=== PATIENT | female | born 1960 | race African-American/Black ===

== ENCOUNTER 2018-11-10 09:08 | Emergency (ER) | payer OTHER ==
[2018-11-10 09:17] VITALS: BP 153/90; PULSE 83; TEMP 98.2; BMI 21.3
--- NOTE | 2018-11-10 09:52 | PDOC ---
History of Present Illness - General Chief Complaint: Edema Stated Complaint: LIP SWOLLEN Time Seen by Provider: 11/10/18 09:29 History Source: Patient Exam Limitations: No Limitations Past History - Travel Traveled outside of the country in the last 30 days: No Close contact w/someone who was outside of country & ill: No - Past Medical History Allergies/Adverse Reactions: Allergies Allergy/AdvReac Type Severity Reaction Status Date / Time ampicillin Allergy Verified 11/10/18 09:14 Penicillins Allergy Verified 11/10/18 09:14 shellfish derived Allergy Verified 11/10/18 09:14 Home Medications: Ambulatory Orders Cephalexin Monohydrate [Keflex -] 500 mg PO BID #14 capsule 11/10/18 Sulfamethoxazole/Trimethoprim [Bactrim Ds -] 1 tab PO BID #14 tablet 11/10/18 COPD: No CHF: Yes GI Disorders: Yes (KIDNEY INSUFICIENCY) HTN: Yes - Suicide/Smoking/Psychosocial Hx Smoking History: Current every day smoker Number of Cigarettes Smoked Daily: 6 Information on smoking cessation initiated: No Hx Alcohol Use: No Drug/Substance Use Hx: No Review of Systems - Review of Systems Able to Perform ROS?: Yes Comments:: 11/10/18 09:46 CONSTITUTIONAL: Absent: fever, chills, diaphoresis, generalized weakness, malaise, loss of appetite HEENT: Absent: rhinorrhea, nasal congestion, throat pain, throat swelling, difficulty swallowing, mouth swelling, ear pain, eye pain, visual Changes MUSCULOSKELETAL: Absent: myalgia, arthralgia, joint swelling SKIN: Present: swelling to the R upper lip Absent: rash, itching, pallor NEUROLOGIC: Absent: headache, focal weakness or paresthesias, dizziness, unsteady gait, seizure, mental status changes, bladder or bowel incontinence PSYCHIATRIC: Absent: anxiety, depression, suicidal or homicidal ideation, hallucinations. Is the patient limited Czech proficient: No *Physical Exam - Vital Signs Last Vital Signs Temp Pulse Resp BP Pulse Ox 98.2 F 83 16 153/90 99 11/10/18 09:15 11/10/18 09:15 11/10/18 09:15 11/10/18 09:15 11/10/18 09:15 - Physical Exam Comments: 11/10/18 09:51 GENERAL: The patient is awake, alert, and fully oriented, in no acute distress. HEAD: Normal with no signs of trauma. EYES: Pupils equal, round and reactive to light, extraocular movements intact, sclera anicteric, conjunctiva clear. EXTREMITIES: Normal range of motion, no edema. NEUROLOGICAL: Normal speech, normal gait. PSYCH: Normal mood, normal affect. SKIN: Indurated erythematous area to the R upper nasolabial fold extending to the R upper lip. Vesicles noted in the R nare. Warm, Dry, normal turgor, no rashes or lesions noted. Medical Decision Making - Medical Decision Making 11/10/18 09:52 The patient is a 58 y/o F who presents to the ER for swelling to her R upper lip. The patient reports that she had a fever blister in that area starting this week and now the area is swollen and tender to touch. Denies fevers, chills , headache, dizziness, visual changes, n/v/d. A/P: cellulitis On exam pt with an area of induration and erythema from the R nasolabial fold to RUL Consistent with cellulitis Will treat with bactrim and keflex at this time Pt to f/u with PCP. ENT referral also given DC home I discussed the physical exam findings, ancillary test results and final diagnoses with the patient. I answered all of the patient's questions. The patient was satisfied with the care received and felt comfortable with the discharge plan and treatment plan. The Patient agrees to follow up with the primary care physician/specialist within 24-72 hours. Return precautions were given. *DC/Admit/Observation/Transfer Diagnosis at time of Disposition: Cellulitis Qualifiers: Site of cellulitis: face Qualified Code(s): L03.211 - Cellulitis of face - Discharge Dispostion Disposition: HOME Condition at time of disposition: Stable Decision to Admit order: No - Referrals Referrals: Lee Claire MD [Staff Physician] - Julio Mathias MD [Staff Physician] - - Patient Instructions Printed Discharge Instructions: DI for Cellulitis -- Adult Additional Instructions: You have cellulitis. This is a skin infection. Please take the Bactrim and Keflex twice a day for one week. Please take all the antibiotics even if you feel better. You may use warm water soaks to the area. Please do this approximately 4-5 times a day. Please avoid shaving the skin around the area of redness. You may take Tylenol or Motrin as needed for pain. Please follow up with your primary care doctor in 1 week. Return to the emergency department if you have worsening redness, fevers, increasing pain, or have any changes in your symptoms. - Post Discharge Activity
== END 2018-11-10 09:58 | disposition home or self-care (01) ==
LOC: JERFT 09:08
DX: L03.211 Cellulitis of face (principal); I11.0 Hypertensive heart disease with heart failure; I50.9 Heart failure, unspecified
CPT/HCPCS: 99282-25

== ENCOUNTER → 2018-11-21 | Emergency (ER) | payer OTHER ==
[~2018-11-21] MED LIST: SODIUM ZIRCONIUM CYCLOSILICATE (LOKELMA) 5 GM PACKET PO STA
--- NOTE | 2018-11-21 13:24 | PDOC ---
Rapid Medical Evaluation Chief Complaint: Revisit, Lab Variance Time Seen by Provider: 11/21/18 13:23 Medical Evaluation: Allergies Allergy/AdvReac Type Severity Reaction Status Date / Time ampicillin Allergy Verified 11/10/18 09:14 Penicillins Allergy Verified 11/10/18 09:14 shellfish derived Allergy Verified 11/10/18 09:14 11/21/18 13:23 CC: sent by renal for hyperK+ PE: No focal findings Orders: EKG, urine, labs Patient will proceed to ER for further evaluation. Discharge Disposition - Diagnosis Hyperkalemia - Referrals Referrals: Eun Whiting MD [Primary Care Provider] - - Patient Instructions - Post Discharge Activity
[2018-11-21 13:25] VITALS: BMI 22.3
--- NOTE | 2018-11-21 14:32 | EKG ---
Test Reason : Blood Pressure : / mmHG Vent. Rate : 068 BPM Atrial Rate : 068 BPM P-R Int : 162 ms QRS Dur : 098 ms QT Int : 440 ms P-R-T Axes : 063 -62 099 degrees QTc Int : 467 ms NORMAL SINUS RHYTHM LEFT AXIS DEVIATION T WAVE ABNORMALITY, CONSIDER LATERAL ISCHEMIA PROLONGED QT ABNORMAL ECG NO PREVIOUS ECGS AVAILABLE Confirmed by TG MADSEN MD ([id number]) on 11/21/2018 2:32:02 PM Referred By: Confirmed By:TG MADSEN MD
--- NOTE | 2018-11-21 14:37 | PDOC ---
History of Present Illness - General Chief Complaint: Revisit, Lab Variance Stated Complaint: SENT BY PCP HIGH POTASSIUM Time Seen by Provider: 11/21/18 13:23 History Source: Patient, Old Records, Other (Dr. Ramsey came to the department to discuss the pt with ED Attending.) Exam Limitations: No Limitations - History of Present Illness Initial Comments: HPI: 58 y/o female presenting to [facility] ER from the clinic of Dr. Ramsey for evaluation of hyperkalemia. Pt has a h/o of CKD and was started on Bactrim and Keflex last week after noting swelling to her face. Potassium was found to be 5.9 today. Pt denies symptoms. Medical Hx: - HTN - CHF - CKD Review of Systems: In addition to that documented in the HPI above, the additional ROS was obtained : Constitutional- Denies fevers or chills Head- Denies vision changes ENMT- Denies sore throat CV- Denies chest pain Resp- Denies SOB GI- Denies vomiting or diarrhea - Denies painful urination MSK- Denies recent trauma Skin- Denies new rashes Neuro- Denies new numbness or tingling or weakness Endocrine- Denies polyuria Heme- Denies bleeding or bruising Physical Examination: Constitutional- Well-developed, well-nourished adult female in no acute distress or obvious discomfort. Found semi-fowlers on hospital bed. Answered all questions appropriately and completely. Speech was non-labored, non- pressured. Head- Normocephalic. No obvious external signs of trauma. Cardiovascular / Chest- Regular rate and regular rhythm. No murmur, rubs, clicks , or gallops. Peripheral pulses- radial pulses full. Respiratory- Breathing unlabored. Equal chest rise and fall. Clear to auscultation bilaterally. No stridor, no wheezing, no rhonchi. Neuro- Alert and oriented x4. Moving all four extremities spontaneously. Skin- Warm, dry, and intact. Psych- Affect- appropriate. Mood- normal. MDM: *Reviewed vital signs, nursing notes, and prior visit documentation (if available). 58 y/o female presenting with asymptomatic hyperkalemia from clinic. Afebrile. Vitals unremarkable for hypotension or tachycardia. Physical exam as described above. Repeat potassium within normal limits. Cr and H/H at baseline per Dr. Ramsey, who was consulted via telephone. Requested she be administered single dose of Lokelma before discharge. Will f/u in clinic in two days. Discussed lab results with pt . Answered all questions. Provided return precautions. Pt expressed verbal understanding and agreement with plan to discharge home with outpatient follow up. Provided copies of todays results. Encouraged pt to discontinue taking the previously prescribed antibiotics. Brandon Sims M.D., PGY2 Emergency Medicine Resident Past History - Past Medical History Allergies/Adverse Reactions: Allergies Allergy/AdvReac Type Severity Reaction Status Date / Time ampicillin Allergy Verified 11/21/18 13:25 Penicillins Allergy Verified 11/21/18 13:25 shellfish derived Allergy Verified 11/21/18 13:25 Home Medications: Ambulatory Orders Cephalexin Monohydrate [Keflex -] 500 mg PO BID #14 capsule 11/10/18 Sulfamethoxazole/Trimethoprim [Bactrim Ds -] 1 tab PO BID #14 tablet 11/10/18 COPD: No CHF: Yes GI Disorders: Yes (KIDNEY INSUFICIENCY) HTN: Yes - Psycho Social/Smoking Cessation Hx Smoking History: Never smoked Number of Cigarettes Smoked Daily: 6 Information on smoking cessation initiated: No Hx Alcohol Use: No Drug/Substance Use Hx: No *Physical Exam - Vital Signs Last Vital Signs Temp Pulse Resp BP Pulse Ox 99.0 F 65 19 146/80 100 11/21/18 14:14 11/21/18 14:14 11/21/18 14:14 11/21/18 14:14 11/21/18 14:16 ED Treatment Course - LABORATORY CBC & Chemistry Diagram: 11/21/18 14:15 11/21/18 14:15 Discharge - Discharge Information Problems reviewed: Yes Clinical Impression/Diagnosis: Hyperkalemia, Elevated serum creatinine CKD (chronic kidney disease) Qualifiers: Chronic kidney disease stage: unspecified stage Qualified Code(s): N18.9 - Chronic kidney disease, unspecified Condition: Good Disposition: HOME - Admission No - Follow up/Referral Referrals: Eun Whiting MD [Primary Care Provider] - Yeison Ramsey MD [Staff Physician] - - Patient Discharge Instructions Patient Printed Discharge Instructions: Limiting Potassium in Your Diet Additional Instructions: You were seen today for a high potassium level. Your potassium was re-measured and found to have improved. It is now within a safe level. I called and discussed your case with Dr. Ramsey. He would like you to take a dose of Lokelma. He would also like you to follow up with him in his office in the next 2-3 days. You will need to call to make an appointment. The number is included in this packet. A copy of todays results are attached to this packet. Take it to the appointment so your doctor can review them. Do not take any more of the antibiotics prescribed last week. Go to the nearest emergency department if your condition worsens or you feel like you need additional emergency evaluation. Print Language: GREEK - Post Discharge Activity Work/Back to School Note: Back to Work
[2018-11-21 14:48] LABS: BASO % 0.9 % (0-2.0); EOS % 9.6 % (0-4.5); HEMATOCRIT 26.9 % (32.4-45.2); HEMOGLOBIN 8.6 GM/dL (10.7-15.3); LYMPH % 32.6 % (8-40); MCH 22.3 pg (25.7-33.7); MCHC 31.9 g/dl (32.0-36.0); MEAN CELL VOLUME 69.9 fl (80-96); MEAN PLT VOLUME 8.5 fl (7.5-11.1); MONO % 6.3 % (3.8-10.2); NEUT % 50.6 % (42.8-82.8); PLATELET COUNT 289 K/MM3 (134-434); RBC 3.85 M/mm3 (3.60-5.2); RDW 16.2 % (11.6-15.6); WHITE BLOOD COUNT 8.3 K/mm3 (4.0-10.0)
[2018-11-21 14:54] VITALS: BP 146/80; PULSE 65; TEMP 99
[2018-11-21 15:23] LABS: EPI CELLS 22.3 /HPF (0-5/HPF); HYALINE CASTS 3 /lpf (0-8); URINE APPEARANCE CLOUDY; URINE BACTERIA 618.3 /hpf (NEGATIVE); URINE BILIRUBIN NEGATIVE (NEGATIVE); URINE COLOR YELLOW; URINE GLUCOSE (UA) NEGATIVE (NEGATIVE); URINE KETONE TRACE (NEGATIVE); URINE LEUK ESTERASE NEGATIVE (NEGATIVE); URINE NITRITE NEGATIVE (NEGATIVE); URINE PROTEIN 3+ (NEGATIVE); URINE RBC 1 /hpf (0-4); URINE UROBILINOGEN 0.2 mg/dL (0.2-1.0); URINE WBC 4 /hpf (0-5)
[2018-11-21 15:30] LABS: ALBUMIN 3.4 g/dl (3.4-5.0); BILIRUBIN,TOTAL 0.2 mg/dL (0.2-1); BLOOD UREA NITROGEN 72.4 mg/dL (7-18); CALCIUM 8.8 mg/dL (8.5-10.1); CREATININE 3.7 mg/dL (0.55-1.3); POTASSIUM 5.1 mmol/L (3.5-5.1); TOT PROT 7.8 g/dl (6.4-8.2)
--- NOTE | 2018-11-21 15:37 | PDOC ---
Attending Attestation - Resident Resident Name: Brandon Sims - ED Attending Attestation I have performed the following: I have examined & evaluated the patient, The case was reviewed & discussed with the resident, I agree w/resident's findings & plan, Exceptions are as noted - HPI HPI: 11/21/18 15:32 Patient is a 58-year-old female with history of CKD who presents to the ER for elevated potassium of 5.9 and elevated creatinine compared to baseline after initiation of therapy with p.o. Bactrim for suspected phlebitis. Patient has no acute complaints. - Physicial Exam PE: 11/21/18 15:36 Patient is awake and alert, well-appearing, no distress Normocephalic and atraumatic PERRLA, EOMI CTA RRR - Medical Decision Making 11/21/18 15:37 Patient 58-year-old female with history of CKD who presents from nephrology office for elevated creatinine and hyperkalemia. EKG reveals no evidence of hyperacute T waves nor any other evidence of hyperkalemia. Will obtain CBC/CMP/ UA. Will treat hyperkalemia with Lakelma as needed. Will consult nephrology as needed.
--- NOTE | 2018-11-21 19:02 | CONSULT ---
Consult Consult Specialty:: Nephrology Reason for Consultation:: I sent her in for hyperkalemia - History of Present Illness Chief Complaint: sentin in for hyperkalemia History of Present Illness: Pt is a 58 year old female with pmhx of ckd, hep c, htn who I sent in for hyperkalemia. She was given bactrim for an infection last week and came to me to review her meds. Her potassium was elevated and it did not improve. She overall feels well. She denies shortness of breath or palpitations. - History Source History Provided By: Patient, Medical Record - Past Medical History Cardio/Vascular: Yes: HTN Renal/: Yes: Renal Inusuff - Alcohol/Substance Use Hx Alcohol Use: No - Smoking History Smoking history: Never smoked Aproximately how many cigarettes per day: 6 Home Medications - Allergies Allergies/Adverse Reactions: Allergies Allergy/AdvReac Type Severity Reaction Status Date / Time ampicillin Allergy Verified 11/21/18 13:25 Penicillins Allergy Verified 11/21/18 13:25 shellfish derived Allergy Verified 11/21/18 13:25 - Home Medications Home Medications: Ambulatory Orders Cephalexin Monohydrate [Keflex -] 500 mg PO BID #14 capsule 11/10/18 Sulfamethoxazole/Trimethoprim [Bactrim Ds -] 1 tab PO BID #14 tablet 11/10/18 Family Medical History Family History: Denies Review of Systems - Review of Systems Constitutional: reports: No Symptoms Eyes: reports: No Symptoms HENT: reports: No Symptoms Neck: reports: No Symptoms Cardiovascular: reports: No Symptoms Respiratory: reports: No Symptoms Gastrointestinal: reports: No Symptoms Genitourinary: reports: No Symptoms Musculoskeletal: reports: No Symptoms Integumentary: reports: No Symptoms Neurological: reports: No Symptoms Endocrine: reports: No Symptoms Hematology/Lymphatic: reports: No Symptoms Psychiatric: reports: No Symptoms Physical Exam Vital Signs: Vital Signs Temperature 99.0 F 11/21/18 14:14 Pulse Rate 65 11/21/18 14:14 Respiratory Rate 19 11/21/18 14:14 Blood Pressure 146/80 11/21/18 14:14 O2 Sat by Pulse Oximetry (%) 100 11/21/18 14:16 Constitutional: Yes: Calm Eyes: Yes: Conjunctiva Clear HENT: Yes: Atraumatic Neck: Yes: Supple Cardiovascular: Yes: S1, S2 Gastrointestinal: Yes: Soft Breast(s): Yes: WNL Extremities: Yes: WNL Edema: No Neurological: Yes: Oriented Psychiatric: Yes: Oriented Labs: CBC, BMP 11/21/18 14:15 11/21/18 14:15 Laboratory Tests 11/21/18 11/21/18 11/21/18 14:15 14:15 14:15 Hgb 8.6 L Hct 26.9 L Sodium 141 Potassium 5.1 Chloride 117 H Carbon Dioxide 15 L BUN 72.4 H Creatinine 3.7 H Urine Protein 3+ H Urine Ketones Trace H Problem List - Problems (1) CKD (chronic kidney disease) Code(s): N18.9 - CHRONIC KIDNEY DISEASE, UNSPECIFIED Qualifiers: Chronic kidney disease stage: unspecified stage Qualified Code(s): N18.9 - Chronic kidney disease, unspecified (2) Elevated serum creatinine Code(s): R79.89 - OTHER SPECIFIED ABNORMAL FINDINGS OF BLOOD CHEMISTRY (3) Hyperkalemia Code(s): E87.5 - HYPERKALEMIA Assessment/Plan Impression 1. CKD 2. hyperkalemia 3. cellilitis treated as outpt 4. hep c treated 5. htn 6. anemia 7. met acidosis Plan - potassium is improving - will give a dose of lokelma - discussed with er - bactrim is stopped - will see on office
== END | disposition home or self-care (01) ==
LOC: JER 13:19
DX: N18.9 Chronic kidney disease, unspecified (principal); E87.5 Hyperkalemia; R94.4 Abnormal results of kidney function studies; I50.9 Heart failure, unspecified; I10 Essential (primary) hypertension; Z88.0 Allergy status to penicillin; Z88.8 Allergy status to other drugs, medicaments and biological substances; Z91.013 Allergy to seafood
CPT/HCPCS: 36415; 80053; 81003; 82436; 82550; 82565; 84133; 84300; 84484; 85025; 87077; 87086; 93005; 93010; 99283-25

== ENCOUNTER 2019-03-25 13:42 | Emergency (ER) | payer OTHER ==
[2019-03-25 13:48] VITALS: BMI 23.8
--- NOTE | 2019-03-25 13:49 | PDOC ---
Rapid Medical Evaluation Time Seen by Provider: 03/25/19 13:47 Medical Evaluation: Allergies Allergy/AdvReac Type Severity Reaction Status Date / Time ampicillin Allergy Verified 03/25/19 13:45 Penicillins Allergy Verified 03/25/19 13:45 shellfish derived Allergy Verified 03/25/19 13:45 03/25/19 13:47 This patient had brief-in person evaluation in triage cc:sent by pmd for acid levels HPI:as per patient she was sent by pmd due to abnormal " acid levels' Reports weakness. Denies chest pain PE: unlabored breathing [id number] orders:labs ordered This patient will proceed to main ed for further evaluation 03/25/19 20:38 Discharge Disposition - Diagnosis Renal insufficiency - Discharge Dispostion Disposition: HOME Condition at time of disposition: Good - Referrals Referrals: Eun Whiting MD [Primary Care Provider] - - Patient Instructions Printed Discharge Instructions: DI for Kidney Failure Additional Instructions: At this time we are recommending that you continue to take your sodium bicarb as prescribed. you are given a dose here in the ER for the afternoon dose but need to take it tonight. Follow-up with Dr. Ramsey next Monday as discussed - Post Discharge Activity
[2019-03-25 14:41] LABS: BASO % 0.3 % (0-2.0); EOS % 5.4 % (0-4.5); HEMATOCRIT 29.2 % (32.4-45.2); HEMOGLOBIN 9.1 GM/dL (10.7-15.3); LYMPH % 23.5 % (8-40); MCH 21.9 pg (25.7-33.7); MCHC 31.1 g/dl (32.0-36.0); MEAN CELL VOLUME 70.5 fl (80-96); MEAN PLT VOLUME 8.3 fl (7.5-11.1); MONO % 7.8 % (3.8-10.2); PLATELET COUNT 245 K/MM3 (134-434); RBC 4.14 M/mm3 (3.60-5.2); RDW 15.8 % (11.6-15.6); WHITE BLOOD COUNT 7.8 K/mm3 (4.0-10.0)
[2019-03-25 15:07] LABS: ALBUMIN 3.4 g/dl (3.4-5.0); BILIRUBIN,TOTAL 0.2 mg/dL (0.2-1); BLOOD UREA NITROGEN 68.4 mg/dL (7-18); CALCIUM 8.9 mg/dL (8.5-10.1); CREATININE 4.2 mg/dL (0.55-1.3); POTASSIUM 4.7 mmol/L (3.5-5.1); TOT PROT 7.9 g/dl (6.4-8.2)
[2019-03-25] MEDS ORDERED: SODIUM BICARBONATE 650 MG TABLET PO ONE (15:24)
--- NOTE | 2019-03-25 15:43 | PDOC ---
History of Present Illness - General Chief Complaint: Abnormal Lab Results (Outside) Stated Complaint: ABNORMAL LABS Time Seen by Provider: 03/25/19 13:47 History Source: Patient Exam Limitations: No Limitations - History of Present Illness Initial Comments: 03/25/19 15:39 59-year-old female presents to ED for evaluation of elevated bicarb. As per patient patient was sent in by her neurology manager and she has not been taking her sodium bicarb as prescribed and needs lab work. Patient has no complaints presently. Is this a multiple visit Asthma Patient?: No Timing/Duration: unsure Associated Symptoms: reports: denies symptoms Past History - Travel Traveled outside of the country in the last 30 days: No Close contact w/someone who was outside of country & ill: No - Past Medical History Allergies/Adverse Reactions: Allergies Allergy/AdvReac Type Severity Reaction Status Date / Time ampicillin Allergy Verified 03/25/19 13:45 Penicillins Allergy Verified 03/25/19 13:45 shellfish derived Allergy Verified 03/25/19 13:45 Home Medications: Ambulatory Orders Cephalexin Monohydrate [Keflex -] 500 mg PO BID #14 capsule 11/10/18 Sulfamethoxazole/Trimethoprim [Bactrim Ds -] 1 tab PO BID #14 tablet 11/10/18 COPD: Yes CHF: Yes GI Disorders: Yes (KIDNEY INSUFICIENCY) HTN: Yes Hypercholesterolemia: Yes - Immunization History Immunization Up to Date: Yes - Psycho Social/Smoking Cessation Hx Smoking History: Current every day smoker Have you smoked in the past 12 months: Yes Number of Cigarettes Smoked Daily: 4 Information on smoking cessation initiated: No Hx Alcohol Use: No Drug/Substance Use Hx: No Patient Lives Alone: No Lives with/in: spouse/SO Review of Systems - Review of Systems Able to Perform ROS?: Yes Constitutional: No: Symptoms Reported HEENTM: No: Symptoms Reported Respiratory: No: Symptoms reported Cardiac (ROS): No: Symptoms Reported ABD/GI: No: Symptoms Reported : No: Symptoms Reported Musculoskeletal: No: Symptoms Reported Integumentary: No: Symptoms Reported Neurological: No: Symptoms reported *Physical Exam - Vital Signs Last Vital Signs Temp Pulse Resp BP Pulse Ox 98.0 F 76 18 147/72 98 03/25/19 13:45 03/25/19 13:45 03/25/19 13:45 03/25/19 13:45 03/25/19 13:45 - Physical Exam General Appearance: Yes: Nourished, Appropriately Dressed. No: Apparent Distress HEENT: positive: TMs Normal, Pharynx Normal. negative: Pale Conjunctivae Neck: positive: Supple Respiratory/Chest: positive: Lungs Clear, Normal Breath Sounds. negative: Respiratory Distress, Accessory Muscle Use Cardiovascular: positive: Regular Rhythm, Regular Rate. negative: Murmur Gastrointestinal/Abdominal: positive: Soft. negative: Tenderness Integumentary: positive: Normal Color, Dry, Warm Neurologic: positive: Normal Mood/Affect, Motor Strength 5/5 (Ambulatory) ED Treatment Course - LABORATORY CBC & Chemistry Diagram: 03/25/19 13:59 03/25/19 13:59 - ADDITIONAL ORDERS Additional order review: Laboratory Results 03/25/19 13:59 Sodium 141 Potassium 4.7 Chloride 117 H Carbon Dioxide 15 L Anion Gap 9 BUN 68.4 H Creatinine 4.2 H Est GFR (CKD-EPI)AfAm 12.42 Est GFR (CKD-EPI)NonAf 10.72 Random Glucose 111 H Calcium 8.9 Total Bilirubin 0.2 AST 23 ALT 27 Alkaline Phosphatase 174 H Total Protein 7.9 Albumin 3.4 03/25/19 13:59 RBC 4.14 MCV 70.5 L MCHC 31.1 L RDW 15.8 H MPV 8.3 Neutrophils % 63.0 D Lymphocytes % 23.5 D Monocytes % 7.8 Eosinophils % 5.4 H Basophils % 0.3 Medical Decision Making - Medical Decision Making 03/25/19 15:40 Chief complaint: Patient sent in by neurology manager Dr. ortiz for evaluation of sodium bicarb. Patient is asymptomatic. Patient does not receive dialysis but is closely being monitored for it. exam: Patient with normal vital signs with no acute or significant findings on exam. Plan: Labs reviewed and are within normal limits. Patient will be given 650 mg of sodium bicarb here in the ER as per her neurology manager and discharged home with the same which she has written a prescription already for and patient is aware she needs to take her medication and follow-up with him next Monday. Discharge - Discharge Information Problems reviewed: Yes Clinical Impression/Diagnosis: Renal insufficiency Condition: Good Disposition: HOME - Follow up/Referral Referrals: Eun Whiting MD [Primary Care Provider] - - Patient Discharge Instructions Patient Printed Discharge Instructions: DI for Kidney Failure Additional Instructions: At this time we are recommending that you continue to take your sodium bicarb as prescribed. you are given a dose here in the ER for the afternoon dose but need to take it tonight. Follow-up with Dr. Ramsey next Monday as discussed - Post Discharge Activity
[2019-03-25 15:59] LABS: ANISOCYTOSIS 1+; MACROCYTOSIS 0; PLATELET ESTIMATE NORMAL; TARGET CELLS 1+; TEAR DROP CELLS 1+
[2019-03-25 16:28] VITALS: BP 141/69; PULSE 82; TEMP 97.9
--- NOTE | 2019-03-25 19:38 | CONSULT ---
Consult Consult Specialty:: Nephrology Reason for Consultation:: CKD - History of Present Illness Chief Complaint: i sent pt in for acidosis History of Present Illness: Pt is a 59 year old female with pmhx of ckd and htn. I saw her in [facility] office and she was found to be acidotic with a bicarb of 12. I asked her to come in to have her labs rechecked. She says that she stopped taking her bicarb pills. - History Source History Provided By: Patient - Past Medical History Cardio/Vascular: Yes: HTN Hepatobiliary: Yes: Hepatitis C Renal/: Yes: Renal Inusuff - Alcohol/Substance Use Hx Alcohol Use: No - Smoking History Smoking history: Current every day smoker Have you smoked in the past 12 months: Yes Aproximately how many cigarettes per day: 4 Home Medications - Allergies Allergies/Adverse Reactions: Allergies Allergy/AdvReac Type Severity Reaction Status Date / Time ampicillin Allergy Verified 03/25/19 13:45 Penicillins Allergy Verified 03/25/19 13:45 shellfish derived Allergy Verified 03/25/19 13:45 - Home Medications Home Medications: Ambulatory Orders Cephalexin Monohydrate [Keflex -] 500 mg PO BID #14 capsule 11/10/18 Sulfamethoxazole/Trimethoprim [Bactrim Ds -] 1 tab PO BID #14 tablet 11/10/18 Family Medical History Family History: Denies Review of Systems - Review of Systems Constitutional: reports: Malaise Eyes: reports: No Symptoms HENT: reports: No Symptoms Neck: reports: No Symptoms Cardiovascular: reports: No Symptoms Respiratory: reports: No Symptoms Genitourinary: reports: No Symptoms Musculoskeletal: reports: No Symptoms Integumentary: reports: No Symptoms Neurological: reports: No Symptoms Endocrine: reports: No Symptoms Hematology/Lymphatic: reports: No Symptoms Psychiatric: reports: No Symptoms Physical Exam Vital Signs: Vital Signs Temperature 97.9 F 03/25/19 16:27 Pulse Rate 82 03/25/19 16:27 Respiratory Rate 18 03/25/19 16:27 Blood Pressure 141/69 03/25/19 16:27 O2 Sat by Pulse Oximetry (%) 98 03/25/19 16:27 Constitutional: Yes: Calm Eyes: Yes: Conjunctiva Clear HENT: Yes: Atraumatic Neck: Yes: Supple Cardiovascular: Yes: S1, S2 Respiratory: Yes: CTA Bilaterally Gastrointestinal: Yes: Normal Bowel Sounds, Soft Renal/: Yes: WNL Musculoskeletal: Yes: WNL Neurological: Yes: Oriented Psychiatric: Yes: Oriented Labs: CBC, BMP 03/25/19 13:59 03/25/19 13:59 Problem List - Problems (1) Acidosis Code(s): E87.2 - ACIDOSIS (2) CKD (chronic kidney disease) Code(s): N18.9 - CHRONIC KIDNEY DISEASE, UNSPECIFIED Qualifiers: Chronic kidney disease stage: unspecified stage Qualified Code(s): N18.9 - Chronic kidney disease, unspecified (3) Renal insufficiency Code(s): N28.9 - DISORDER OF KIDNEY AND URETER, UNSPECIFIED Assessment/Plan Impression 1. CKD 2. metabolci acidosis 3. anemia 4. hep c treated 5. htn Plan - bicarb improved - will give po bicarb - script sent to pharmacy - renal function worsening, explained to pt that we should prepare for HD - should come for follow up next week - discussed with ER - renal diet
== END 2019-03-25 17:00 | disposition home or self-care (01) ==
LOC: JER 13:42
DX: E87.2 Acidosis (principal); I12.9 Hypertensive chronic kidney disease with stage 1 through stage 4 chronic kidney disease, or unspecified chronic kidney disease; N18.9 Chronic kidney disease, unspecified; D64.9 Anemia, unspecified; B18.2 Chronic viral hepatitis C; Z88.0 Allergy status to penicillin; Z91.013 Allergy to seafood
CPT/HCPCS: 36415; 80053; 85025; 99282-25

== ENCOUNTER 2019-04-10 08:09 | Emergency (ER) | payer OTHER ==
[2019-04-10 08:17] VITALS: BP 150/78; PULSE 71; TEMP 97.7; BMI 22.6
--- NOTE | 2019-04-10 08:43 | PDOC ---
History of Present Illness - General Chief Complaint: Injury Stated Complaint: RIGHT ANKLE PAIN Time Seen by Provider: 04/10/19 08:26 History Source: Patient - History of Present Illness Occurred: reports: other Lower Extremity Pain Location: right: ankle Past History - Past Medical History Allergies/Adverse Reactions: Allergies Allergy/AdvReac Type Severity Reaction Status Date / Time ampicillin Allergy Verified 03/25/19 13:45 Penicillins Allergy Verified 03/25/19 13:45 shellfish derived Allergy Verified 03/25/19 13:45 Home Medications: Ambulatory Orders Cephalexin Monohydrate [Keflex -] 500 mg PO BID #14 capsule 11/10/18 Sulfamethoxazole/Trimethoprim [Bactrim Ds -] 1 tab PO BID #14 tablet 11/10/18 Tramadol HCl 50 mg PO Q6H #15 tablet MDD 200 mg 04/10/19 COPD: Yes CHF: Yes GI Disorders: Yes (KIDNEY INSUFICIENCY) HTN: Yes Hypercholesterolemia: Yes - Immunization History Immunization Up to Date: Yes - Psycho Social/Smoking Cessation Hx Smoking History: Current every day smoker Have you smoked in the past 12 months: Yes Number of Cigarettes Smoked Daily: 4 Information on smoking cessation initiated: No Hx Alcohol Use: No Drug/Substance Use Hx: No Review of Systems - Review of Systems Constitutional: No: Chills, Fever *Physical Exam - Vital Signs Last Vital Signs Temp Pulse Resp BP Pulse Ox 97.7 F 71 16 150/78 99 04/10/19 08:12 04/10/19 08:12 04/10/19 08:12 04/10/19 08:12 04/10/19 08:12 - Physical Exam General Appearance: Yes: Appropriately Dressed, Mild Distress HEENT: positive: Normal Voice Neck: positive: Supple Respiratory/Chest: negative: Respiratory Distress Extremity: positive: Other (~2x2cm localized area of erythema/warmth and sig ttp ~2cm proximal to insertion site of achilles tendon, pt able to plantarflex w / calf squeeze and bear weight) Integumentary: positive: Dry, Warm Neurologic: positive: Fully Oriented, Alert, Normal Mood/Affect Procedures - Splinting Splint Location: Right: Ankle Pre-Proc Neuro Vasc Exam: normal Splint Type: Yes: Long Leg (posterior splint to RLE) Post-Proc Neuro Vasc Exam: normal Edu Bandage: 4" (2) ED Treatment Course - RADIOLOGY Radiology Studies Ordered: Category Date Time Status ANKLE & FOOT-RIGHT* [RAD] Stat Radiology 04/10/19 08:26 Ordered Medical Decision Making - Medical Decision Making 04/10/19 08:36 59-year-old female, h/o HTN, CHF, CKD, gout (to L foot), with severe pain to posterior aspect of right ankle x4 days, getting worse. Denies trauma or obvious inciting factors. No recent antibiotic use. Seen at her PMDs office yesterday and diagnosed with possible tendinopathy and told to take Tylenol and follow-up with Ortho. States Tylenol is not relieving pain. Started using her walker today due to pain see exam ?Achilles tendinopathy vs partial tear as d/w Dr Perez who also evaluated pt No trauma or recent fluoroquinolone use Plantar flexes w/ calf squeeze and able to bear weight w/ walker -Posterior splint placed and NWB w/ crutches (has own crutches at home) -dose of tramadol given here -to f/u with Dr Jarrell of ortho who I spoke to and agrees w/ above plan Discharge - Discharge Information Problems reviewed: Yes Clinical Impression/Diagnosis: Ankle pain Qualifiers: Chronicity: acute Laterality: right Qualified Code(s): M25.571 - Pain in right ankle and joints of right foot Condition: Good Disposition: HOME - Additional Discharge Information Prescriptions: Tramadol HCl 50 mg PO Q6H #15 tablet MDD 200 mg - Follow up/Referral Referrals: Melissa Martins MD [Primary Care Provider] - - Patient Discharge Instructions Patient Printed Discharge Instructions: DI for Achilles Tendinopathy Additional Instructions: You can remove splint at home and ice area intermittently Use crutches for non-weightbearing Take tramadol as directed Follow-up with Dr. Mcdonald of orthopedics this week at [phone] - Post Discharge Activity
[2019-04-10] MEDS ORDERED: traMADol HCL 50 MG TABLET PO ONE (08:46)
[2019-04-10] MEDS ORDERED: traMADol HCL 50 MG TABLET ONE (08:48)
== END 2019-04-10 09:25 | disposition home or self-care (01) ==
LOC: JERFT 08:09
PROC: 2W3QX1Z Immobilization of Right Lower Leg using Splint (ICD-10-PCS; principal; 2019-04-10)
DX: M25.571 Pain in right ankle and joints of right foot (principal); Z88.8 Allergy status to other drugs, medicaments and biological substances; Z88.0 Allergy status to penicillin; Z91.013 Allergy to seafood; I10 Essential (primary) hypertension; I50.9 Heart failure, unspecified; N18.9 Chronic kidney disease, unspecified; E78.00 Pure hypercholesterolemia, unspecified
CPT/HCPCS: 29515; 99283-25

== ENCOUNTER 2019-10-07 04:51 | Day surgery (SDC) | payer OTHER ==
[2019-10-04 16:13] VITALS: BMI 21.7
--- NOTE | 2019-10-07 10:13 | HP ---
[facility] - Chief Complaint History of Present Illness: 59 year old woman with renal failure, needs dialysis access. Limitations to Obtaining History: No Limitations - Past Medical History Allergies/Adverse Reactions: Allergies Allergy/AdvReac Type Severity Reaction Status Date / Time ampicillin Allergy Severe Verified 10/04/19 16:44 Penicillins Allergy Severe Verified 10/04/19 16:44 shellfish derived Allergy Severe Verified 10/04/19 16:44 Cardiovascular: Yes: HTN Hepatobiliary: Yes: Hepatitis C Renal/: Yes: Renal Inusuff - Current Medications Current Medications: Home Medications Medication Instructions Recorded Amlodipine Besylate 10 mg PO DAILY 10/04/19 Atorvastatin Ca [Lipitor] 10 mg PO HS 10/04/19 Budesonide/Formeterol Fumarate 2 inh PO BID 10/04/19 [SYMBICORT 160/4.5mcg -] Carvedilol 25 mg PO BID 10/04/19 Cholecalciserol 0.25 mg PO DAILY 10/04/19 Hydralazine HCl 100 mg PO TID 10/04/19 Isosorbide Mononitrate [Isosorbide 30 mg PO DAILY 10/04/19 Mononitrate ER] Omeprazole 40 mg PO DAILY 10/04/19 Sodium Bicarbonate - 650 mg PO TID 10/04/19 Satellite Physical Exam - Physical Examination Vital Signs: Vital Signs Period Temp Pulse Resp BP Sys/Espinosa Pulse Ox Last 24 Hr 97.1 F 69 20 170/85 98-98 General Appearance: Alert & Oriented x3 ENT: Clear Lung: Clear to auscultation Heart: Regular rate & rhythm Abdomen: Soft Extremities: No edema Satellite Impression/Plan - Impression/Plan Impression: Chronic Kidney Disease Operative Procedure: Creation dialysis access Date to be Performed: 10/07/19
[2019-10-07] MEDS ORDERED: LIDOCAINE HCL 1%, 10 MG/ML (20ML VIAL) ONE (10:30)
[2019-10-07] MEDS ORDERED: PAPAVERINE HCL 30 MG/1 ML 10 ML VIAL NR ONE (10:30)
[2019-10-07] MEDS ORDERED: HEPARIN NA (PORCINE) 5,000 UNITS/ML 1ML VIAL ONE (10:30)
[2019-10-07] MEDS ORDERED: PROPOFOL 20 ML ONE ×2 (10:31→11:38)
[2019-10-07] MEDS ORDERED: MIDAZOLAM HCL 2 MG/2 ML SINGLE DOSE VIAL ONE (10:32)
[2019-10-07] MEDS ORDERED: PROMETHAZINE HCL 25 MG/1 ML VIAL IVPUSH PRN (10:38)
[2019-10-07] MEDS ORDERED: ONDANSETRON 4 MG/2 ML VIAL IVPUSH PRN (10:38)
[2019-10-07] MEDS ORDERED: SODIUM CHLORIDE 1,000 ML IV SCH (10:45)
[2019-10-07] MEDS ORDERED: LIDOCAINE HCL 2% 100 MG/5 ML DISP.SYRIN ONE (10:54)
[2019-10-07] MEDS ORDERED: LIDOCAINE HCL 1%, 10 MG/ML (20ML VIAL) NR ONE ×2 (11:08)
[2019-10-07] MEDS ORDERED: POVIDONE-IODINE OINTMENT 10% - 28.4 GM TUBE ONE (11:42)
[2019-10-07] MEDS ORDERED: POVIDONE-IODINE OINTMENT 10% - 28.4 GM TUBE TP ONE (11:59)
--- NOTE | 2019-10-07 12:03 | OP ---
Operative Note - Note: Operative Date: 10/07/19 Pre-Operative Diagnosis: Chronic Kidney Disease Operation: Creation AV fistula left arm Findings: Patent basilic vein and brachial artery Surgeon: Pj Fletcher Diamond Assorter: Sushila Carvalho Anesthesiologist/EMERGENCY DEPARTMENT DIRECTOR: Trever Gentile Anesthesia: MAC Estimated Blood Loss (mls): 10
--- NOTE | 2019-10-07 12:35 | SURG ---
Surgery Voice Engineer Note Voice Engineer: Sushila Carvalho PA-C (Suzy) Date of Service: 10/07/19 Diagnosis: Chronic Kidney Disease Procedure: Operation: Creation AV fistula left arm I was present for the entirety of the operative procedure. For further detail, please refer to operative report. Visit type - Case Type Case Type: Scheduled - Emergency Emergency Visit: No - New patient This patient is new to me today: Yes Date on this admission: 10/07/19 - Critical Care Critical Care patient: No
[2019-10-07 13:02] VITALS: TEMP 97.5
[2019-10-07 15:03] VITALS: BP 149/63; PULSE 71
--- NOTE | 2019-10-07 19:12 | OP ---
DATE OF OPERATION: 10/07/2019 SURGEON: Pj Osborne MD. LEAD ETL DEVELOPER: SHAY Mayorga. PROCEDURE: Creation arteriovenous fistula left arm, brachial artery to basilic vein, first stage. PREOPERATIVE DIAGNOSIS: Chronic kidney disease. POSTOPERATIVE DIAGNOSIS: Chronic kidney disease. ANESTHESIA: Fractional. ANESTHESIOLOGIST: Trever Gentile MD. OPERATIVE FINDINGS: The basilic vein and brachial artery were patent with adequate diameter at the level of the elbow. OPERATIVE PROCEDURE: Following routine patient identification with side and site verification, intravenous sedation was established. The left arm was prepped with ChloraPrep. Timeout was performed. 1% lidocaine was infiltrated in the skin over the basilic vein and brachial artery near the elbow crease. Skin incision was made between the 2 vessels. The vein was mobilized. It was ligated distally. All side branches were divided and ligated. The vein was incised and distended with heparin and papaverine solution. Number 5 and number 8 feeding tubes were passed proximally without resistance. The vein was covered with moist gauze. The artery was then exposed through the same incision and encircled with Vesseloops. Side branches were ligated and divided. The vein was then freed and spatulated. The artery was occluded Vesseloops and opened on exposed surface with a 6-mm arteriotomy. The end of the vein was then anastomosed to the side of the artery with running suture of 6-0 Prolene. Prior to placement of suture line, the artery was allowed to back bleed and flush, and the vein was flushed with heparin solution. Suture line was completed, and the vessels were released. There was good flow through the anastomosis with a palpable thrill proximally. Bleeding from the suture line was controlled with Surgicel. The hemostasis was adequate. The wound was closed with interrupted suture of 3-0 Vicryl on the subcutaneous tissues and skin zackary. A sterile dressing was applied, and the patient was taken to the recovery room in stable condition. PJ OSBORNE M.D. [id number]
== END 2019-10-07 13:40 | disposition home or self-care (01) ==
LOC: JASU-SURG 04:51
PROVIDERS: ATTEND Surgery
PROC: 03180JF Bypass Left Brachial Artery to Lower Arm Vein with Synthetic Substitute, Open Approach (ICD-10-PCS; principal; 2019-10-07 10:00)
DX: I12.9 Hypertensive chronic kidney disease with stage 1 through stage 4 chronic kidney disease, or unspecified chronic kidney disease (principal); N18.9 Chronic kidney disease, unspecified; F17.210 Nicotine dependence, cigarettes, uncomplicated; D63.1 Anemia in chronic kidney disease; B18.2 Chronic viral hepatitis C; R73.03 Prediabetes
CPT/HCPCS: 94760; J1644

== ENCOUNTER 2019-10-18 08:23 | Inpatient (IN) | payer OTHER ==
--- NOTE | 2019-10-18 08:35 | PDOC ---
History of Present Illness - General Chief Complaint: Abnormal Lab Results (Outside) Stated Complaint: SENT BY PCP Time Seen by Provider: 10/18/19 08:34 History Source: Patient Exam Limitations: No Limitations - History of Present Illness Initial Comments: 10/18/19 08:36 59yF w PMHx HTN, CHF, CKD stage 5 (recent L arm fistula placed for dialysis) L foot gout sent by Dr Roxy johnson for asymptomatic hypokalemia checked 2d ago. Was not told lab value. Denies fever, n/v, chest /abd pain. Past History - Medical History Allergies/Adverse Reactions: Allergies Allergy/AdvReac Type Severity Reaction Status Date / Time ampicillin Allergy Severe Verified 10/18/19 08:25 Penicillins Allergy Severe Verified 10/18/19 08:25 shellfish derived Allergy Severe Verified 10/18/19 08:25 Home Medications: Ambulatory Orders Amlodipine Besylate 10 mg PO DAILY 10/04/19 Atorvastatin Ca [Lipitor] 10 mg PO HS 10/04/19 Budesonide/Formeterol Fumarate [SYMBICORT 160/4.5mcg -] 2 inh PO BID 10/04/19 Carvedilol 25 mg PO BID 10/04/19 Cholecalciserol 0.25 mg PO DAILY 10/04/19 Hydralazine HCl 100 mg PO DAILY 10/04/19 Isosorbide Mononitrate [Isosorbide Mononitrate ER] 30 mg PO DAILY 10/04/19 Omeprazole 40 mg PO DAILY 10/04/19 Sodium Bicarbonate - 650 mg PO BID 10/04/19 Anemia: No Cancer: No Cardiac Disorders: No CVA: No COPD: Yes CHF: Yes Dementia: No Diabetes: No GI Disorders: Yes (KIDNEY INSUFICIENCY) Disorders: No HTN: Yes Hypercholesterolemia: Yes Liver Disease: No Seizures: No Thyroid Disease: No - Surgical History Appendectomy: Yes Cardiac Surgery: Yes (LEFT EYE) - Reproductive History Is Patient Now?: No - Immunization History Immunization Up to Date: Yes - Psycho-Social/Smoking History Smoking History: Current every day smoker Have you smoked in the past 12 months: Yes Number of Cigarettes Smoked Daily: 20 Information on smoking cessation initiated: No 'Breaking Loose' booklet given: 10/07/19 - Substance Abuse Hx (Audit-C & DAST Scrn) In the last yr the pt used illegal drug/Rx for NonMed reason: No Score: Yes response is considered Positive: 0 Screen Result (Positive result requires Nsg. DAST-10): Negative Review of Systems - Review of Systems Constitutional: No: Chills, Fever HEENTM: No: Eye Pain, Nose Pain Respiratory: No: Cough, Shortness of Breath Cardiac (ROS): No: Chest Pain, Lightheadedness ABD/GI: No: Nausea, Vomiting : No: Burning, Dysuria Integumentary: No: Bruising, Dryness Neurological: No: Headache, Seizure Psychiatric: No: Anxiety, Depression Endocrine: No: Intolerance to Cold, Intolerance to Heat Hematologic/Lymphatic: No: Anemia, Blood Clots *Physical Exam - Vital Signs Last Vital Signs Temp Pulse Resp BP Pulse Ox 98.6 F 73 16 167/69 96 10/18/19 08:26 10/18/19 08:26 10/18/19 08:26 10/18/19 08:26 10/18/19 08:26 - Physical Exam General Appearance: Yes: Nourished, Appropriately Dressed. No: Apparent Distress HEENT: positive: EOMI, MAYNOR, Normal Voice, Hearing Grossly Normal. negative: Sc leral Icterus (R), Scleral Icterus (L) Respiratory/Chest: positive: Lungs Clear, Normal Breath Sounds. negative: Chest Tender, Respiratory Distress Cardiovascular: positive: Regular Rhythm, Regular Rate, S1, S2. negative: Edema, Murmur Gastrointestinal/Abdominal: positive: Normal Bowel Sounds, Flat, Soft. negative: Tender, Organomegaly Extremity: positive: Other (L fistula) Integumentary: positive: Normal Color, Warm Neurologic: positive: Fully Oriented, Alert, Normal Mood/Affect, Normal Response, Responsive ED Treatment Course - LABORATORY CBC & Chemistry Diagram: 10/18/19 09:00 10/18/19 09:00 Medical Decision Making - Medical Decision Making 10/18/19 08:47 EKG - sinus rhythm w sinus arrhythmia, LAD, HR 63, QTc 491, flat TW, TWI aVL, TW normalization V5-6-I vs 11/2018 Hgb 7.5 from 8.6 10/03/19 --- 59yF w PMHx HTN, CHF, CKD stage 5 (recent L arm fistula placed for dialysis), L foot gout sent by Dr Ramsey renal for asymptomatic hypokalemia 2.5, anemia 7.5. No active bleeding, Mg wnl. Ordered 40 PO + 10x[address] Ramsey renal - give Po + IV K, pt received lasix yesterday, will personally order epogen when he arrives in hospital Admitted tele for hypokalemia, anemia Discharge - Discharge Information Problems reviewed: Yes Clinical Impression/Diagnosis: Hypokalemia Anemia Qualifiers: Anemia type: unspecified type Qualified Code(s): D64.9 - Anemia, unspecified Condition: Stable - Follow up/Referral - Patient Discharge Instructions - Post Discharge Activity
[2019-10-18 09:22] LABS: BASO % 0.8 % (0-2.0); EOS % 5.1 % (0-4.5); HEMATOCRIT 23.6 % (32.4-45.2); HEMOGLOBIN 7.5 GM/dL (10.7-15.3); LYMPH % 25.6 % (8-40); MCH 21.5 pg (25.7-33.7); MCHC 31.6 g/dl (32.0-36.0); MEAN CELL VOLUME 68.1 fl (80-96); MEAN PLT VOLUME 8.8 fl (7.5-11.1); MONO % 10.5 % (3.8-10.2); PLATELET COUNT 272 K/MM3 (134-434); RBC 3.47 M/mm3 (3.60-5.2); RDW 15.7 % (11.6-15.6); WHITE BLOOD COUNT 7.1 K/mm3 (4.0-10.0)
[2019-10-18 09:51] LABS: ALBUMIN 2.6 g/dl (3.4-5.0); BILIRUBIN,TOTAL 0.4 mg/dL (0.2-1); BLOOD UREA NITROGEN 53.7 mg/dL (7-18); CALCIUM 7.2 mg/dL (8.5-10.1); CREATININE 6.1 mg/dL (0.55-1.3); MAGNESIUM 2.1 mg/dL (1.8-2.4); PHOSPHOROUS 5.1 mg/dL (2.5-4.9); TOT PROT 6.7 g/dl (6.4-8.2)
[2019-10-18 10:04] LABS: POTASSIUM 2.5 mmol/L (3.5-5.1)
[2019-10-18 10:13] LABS: ANISOCYTOSIS 3+; MACROCYTOSIS 0; PLATELET ESTIMATE NORMAL
[2019-10-18] MEDS ORDERED: POTASSIUM CHLORIDE ORAL LIQUID 20 MEQ/15 ML PO ONE (10:18)
--- NOTE | 2019-10-18 10:49 | PDOC ---
Documentation entered by Brandan Rodney SCRIBE, acting as scribe for Pham Garcia MD. Pham Garcia MD: This documentation has been prepared by the Rashaun crawford Xhesika, SCRIBE, under my direction and personally reviewed by me in its entirety. I confirm that the documentation accurately reflects all work, treatment, procedures, and medical decision making performed by me. Attending Attestation - Resident Resident Name: Jan Stewart - ED Attending Attestation I have performed the following: I have examined & evaluated the patient, The case was reviewed & discussed with the resident, I agree w/resident's findings & plan, Exceptions are as noted - HPI HPI: 10/18/19 09:42 The patient is a 59y/o F with a pmh of HTN, CHF, ESRD (AV fistula placed by Dr. Fletcher recently), L foot gout who presents to the ED sent by Dr. Ramsey for asymptomatic hypokalemia. The patient denies chest pain, shortness of breath, headache and dizziness. Denies fever, chills, cough, nausea, vomiting, diarrhea and constipation. Denies dysuria, frequency, urgency and hematuria. Allergies:Ampicillin, Penicillins, shellfish derived PCP: Eun Begum Renal: Dr. Ramsey - Physicial Exam PE: GENERAL: Awake, alert, and fully oriented, in no acute distress HEAD: No signs of trauma EYES: PERRLA, EOMI, sclera anicteric, conjunctiva clear ENT: Auricles normal inspection, hearing grossly normal, nares patent, oropharynx clear without exudates. Moist mucosa NECK: Normal ROM, supple, no lymphadenopathy, JVD, or masses LUNGS: Breath sounds equal, clear to auscultation bilaterally. No wheezes, and no crackles HEART: Regular rate and rhythm, normal S1 and S2, no murmurs, rubs or gallops ABDOMEN: Soft, nontender, normoactive bowel sounds. No guarding, no rebound. No masses EXTREMITIES: Normal range of motion, no edema. No clubbing or cyanosis. No cords, erythema, or tenderness. LUE with surgical dressing in place, +thrill. NEUROLOGICAL: Cranial nerves II through XII grossly intact. Normal speech, normal gait. Motor and sensation intact SKIN: Warm, dry, normal turgor, no rashes or lesions noted. - Medical Decision Making Pt with severe hypokalemia, renal failure, anemia. Will plan for admission. Discharge - Discharge Information Problems reviewed: Yes Clinical Impression/Diagnosis: Hypokalemia Anemia Qualifiers: Anemia type: unspecified type Qualified Code(s): D64.9 - Anemia, unspecified Condition: Stable - Follow up/Referral Referrals: Eun Whiting MD [Primary Care Provider] - - Patient Discharge Instructions - Post Discharge Activity
--- NOTE | 2019-10-18 11:04 | HP ---
CHIEF COMPLAINT: asymptomatic hypokalemia PCP:dr amato HISTORY OF PRESENT ILLNESS: 59 yo with PMH of CHF HTN CKD (stage 5; recent L AV fistula placed) was called to come to the ED by Dr Griffiths for a potassium of 2.7. patient has been asymptomatic- she denies any weakness/dizziness/numbness. patient was just s tarted on lasix by dr griffiths on Monday due to increased LE edema and was also recently started on lokelma- patient denies any sick contacts or recent travel ER course was notable for: (1)K 2.5 mag 2.1 (2)ekg t wave inversions (3)received 10kcl x3 and 40 PO Recent Travel: denies PAST MEDICAL HISTORY: see above PAST SURGICAL HISTORY: L AV fistula placement Social History: Smoking:denies Alcohol:denies Drugs: denies Allergies ampicillin Allergy (Severe, Verified 10/18/19 08:25) ANAPHYLACTIC REACTION Penicillins Allergy (Severe, Verified 10/18/19 08:25) ANAPHYLACTIC REACTION shellfish derived Allergy (Severe, Verified 10/18/19 08:25) ANAPHYLACTIC REACTION HOME MEDICATIONS: Home Medications Medication Instructions Recorded Amlodipine Besylate 10 mg PO DAILY 10/04/19 Atorvastatin Ca [Lipitor] 10 mg PO HS 10/04/19 Budesonide/Formeterol Fumarate 2 inh PO BID 10/04/19 [SYMBICORT 160/4.5mcg -] Carvedilol 25 mg PO BID 10/04/19 Cholecalciserol 0.25 mg PO DAILY 10/04/19 Hydralazine HCl 100 mg PO DAILY 10/04/19 Isosorbide Mononitrate [Isosorbide 30 mg PO DAILY 10/04/19 Mononitrate ER] Omeprazole 40 mg PO DAILY 10/04/19 Sodium Bicarbonate - 650 mg PO BID 10/04/19 REVIEW OF SYSTEMS DENIES ALL ROS CONSTITUTIONAL: Absent: fever, chills, diaphoresis, generalized weakness, malaise, loss of appetite, weight change HEENT: Absent: rhinorrhea, nasal congestion, throat pain, throat swelling, difficulty swallowing, mouth swelling, ear pain, eye pain, visual changes CARDIOVASCULAR: Absent: chest pain, syncope, palpitations, irregular heart rate, lightheadedness, peripheral edema RESPIRATORY: Absent: cough, shortness of breath, dyspnea with exertion, orthopnea, wheezing, stridor, hemoptysis GASTROINTESTINAL: Absent: abdominal pain, abdominal distension, nausea, vomiting, diarrhea, constipation, melena, hematochezia GENITOURINARY: Absent: dysuria, frequency, urgency, hesitancy, hematuria, flank pain, genital pain MUSCULOSKELETAL: Absent: myalgia, arthralgia, joint swelling, back pain, neck pain SKIN: Absent: rash, itching, pallor HEMATOLOGIC/IMMUNOLOGIC: Absent: easy bleeding, easy bruising, lymphadenopathy, frequent infections ENDOCRINE: Absent: unexplained weight gain, unexplained weight loss, heat intolerance, cold intolerance NEUROLOGIC: Absent: headache, focal weakness or paresthesias, dizziness, unsteady gait, seizure, mental status changes, bladder or bowel incontinence PSYCHIATRIC: Absent: anxiety, depression, suicidal or homicidal ideation, hallucinations. PHYSICAL EXAMINATION Vital Signs - 24 hr 10/18/19 08:26 Temperature 98.6 F Pulse Rate 73 Respiratory 16 Rate Blood Pressure 167/69 O2 Sat by Pulse 96 Oximetry (%) GENERAL: Awake, alert, and fully oriented, in no acute distress. EYES:PEERLA: EOMI no scleral ictuers NECK:no JVD; no lymphadenopathy LUNGS: BCTA Bl no rales, rhonchi or wheezing HEART: Regular rate and rhythm, normal S1 and S2 without murmur, rub or gallop. ABDOMEN: Soft, NT ND +BS MUSCULOSKELETAL: Normal range of motion at all joints. No bony deformities or tenderness. No CVA tenderness. UPPER EXTREMITIES: L AV fitsula w/ palpable thrill LOWER EXTREMITIES: wamr; well-perfused no clubbinc/cyanosis or edema NEUROLOGICAL: Cranial nerves II-XII intact. Normal speech. Normal gait. PSYCHIATRIC: Cooperative. Good eye contact. Appropriate mood and affect. SKIN: Warm, dry, normal turgor, no rashes or lesions noted, normal capillary refill. Laboratory Results - last 24 hr 10/18/19 10/18/19 09:00 09:00 WBC 7.1 RBC 3.47 L Hgb 7.5 L Hct 23.6 L MCV 68.1 L MCH 21.5 L MCHC 31.6 L RDW 15.7 H Plt Count 272 MPV 8.8 Absolute Neuts (auto) 4.1 Neutrophils % 58.0 Lymphocytes % 25.6 Monocytes % 10.5 H Eosinophils % 5.1 H Basophils % 0.8 Nucleated RBC % 0 Hypochromia 0 Platelet Estimate Normal Polychromasia 0 Poikilocytosis 0 Anisocytosis 3+ Microcytosis 3+ Macrocytosis 0 Sodium 145 Potassium 2.5 L* Chloride 107 Carbon Dioxide 26 Anion Gap 12 BUN 53.7 H Creatinine 6.1 H Est GFR (CKD-EPI)AfAm 7.91 Est GFR (CKD-EPI)NonAf 6.83 Random Glucose 83 Calcium 7.2 L Phosphorus 5.1 H Magnesium 2.1 Total Bilirubin 0.4 AST 15 ALT 11 L Alkaline Phosphatase 96 Total Protein 6.7 Albumin 2.6 L ASSESSMENT/PLAN: 59 yo with PMH of CHF HTN CKD (stage 5; recent L AV fistula placed) was called to come to the ED by Dr Griffiths for a potassium of 2.7. #Hypokalemia K 2.5 mag 2.1 -received 40 PO and 10kcl x3 -repeat BMP in PM -stop lasix and lokelma as per dr griffiths #HTN c/w home medications #CKD stop lasix and lokelma -dr griffiths on board -stop soidum bicarb as per dr griffiths -monitor fluid status -monitor electrolytes -avoid nephrotoxins f/e/n not on fluids hypokalemia- repleted renal/sodium diet dvt pxp: heparin sq Family Medical History Family History: As Documented Family Hx Diabetes: Mother Visit type - Emergency Visit Emergency Visit: Yes ED Registration Date: 10/18/19 Care time: The patient presented to the Emergency Department on the above date and was hospitalized for further evaluation of their emergent condition. - New Patient This patient is new to me today: Yes Date on this admission: 10/18/19 - Critical Care Critical Care patient: No ATTENDING PHYSICIAN STATEMENT I saw and evaluated the patient. I reviewed the resident's note and discussed the case with the resident. I agree with the resident's findings and plan as documented. SUBJECTIVE: OBJECTIVE: ASSESSMENT AND PLAN:
[2019-10-18] MEDS ORDERED: POTASSIUM CHLORIDE ORAL LIQUID 20 MEQ/15 ML ONE (11:20)
[2019-10-18] MEDS ORDERED: KCL 10 MEQ IVPB 30 MEQ/300 ML INFUS.BAG IVPB ONE (11:20)
[2019-10-18] MEDS: KCL 10 MEQ IVPB 10 MEQ/100 ML INFUS.BAG IVPB SCH ×3 (11:22→16:15)
--- NOTE | 2019-10-18 12:51 | PN ---
Teaching Attending Note Name of Resident: Ava Gill ATTENDING PHYSICIAN STATEMENT I saw and evaluated the patient. I reviewed the resident's note and discussed the case with the resident. I agree with the resident's findings and plan as documented. SUBJECTIVE: pt seen and examined at bedside OBJECTIVE: Last Vital Signs Temp Pulse Resp BP Pulse Ox 98.6 F 73 16 167/69 96 10/18/19 08:26 10/18/19 08:26 10/18/19 08:26 10/18/19 08:26 10/18/19 08:26 GENERAL: Awake, alert, and fully oriented, in no acute distress. HEAD: Normal with no signs of trauma. EYES: Pupils equal, round and reactive to light, sclera anicteric, conjunctiva clear. LUNGS: Breath sounds equal, clear to auscultation bilaterally. No wheezes, and no crackles. No accessory muscle use. HEART: Regular rate and rhythm, normal S1 and S2 ABDOMEN: Soft, nontender, not distended MUSCULOSKELETAL: Normal range of motion at all joints. No bony deformities or tenderness. No CVA tenderness. UPPER EXTREMITIES: 2+ pulses, warm, well-perfused. No cyanosis. No clubbing. No peripheral edema., lt arm fistula with thrill LOWER EXTREMITIES: 2+ pulses, warm, well-perfused. No calf tenderness. No peripheral edema. NEUROLOGICAL: Cranial nerves II-XII intact. Normal speech. CBCD WBC 7.1 K/mm3 (4.0-10.0) 10/18/19 09:00 RBC 3.47 M/mm3 (3.60-5.2) L 10/18/19 09:00 Hgb 7.5 GM/dL (10.7-15.3) L 10/18/19 09:00 Hct 23.6 % (32.4-45.2) L 10/18/19 09:00 MCV 68.1 fl (80-96) L 10/18/19 09:00 MCHC 31.6 g/dl (32.0-36.0) L 10/18/19 09:00 RDW 15.7 % (11.6-15.6) H 10/18/19 09:00 Plt Count 272 K/MM3 (134-434) 10/18/19 09:00 MPV 8.8 fl (7.5-11.1) 10/18/19 09:00 CMP Sodium 145 mmol/L (136-145) 10/18/19 09:00 Potassium 2.5 mmol/L (3.5-5.1) L* 10/18/19 09:00 Chloride 107 mmol/L (98-107) 10/18/19 09:00 Carbon Dioxide 26 mmol/L (21-32) 10/18/19 09:00 Anion Gap 12 MMOL/L (8-16) 10/18/19 09:00 BUN 53.7 mg/dL (7-18) H 10/18/19 09:00 Creatinine 6.1 mg/dL (0.55-1.3) H 10/18/19 09:00 Calcium 7.2 mg/dL (8.5-10.1) L 10/18/19 09:00 Total Bilirubin 0.4 mg/dL (0.2-1) 10/18/19 09:00 AST 15 U/L (15-37) 10/18/19 09:00 ALT 11 U/L (13-61) L 10/18/19 09:00 Alkaline Phosphatase 96 U/L (45-117) 10/18/19 09:00 Total Protein 6.7 g/dl (6.4-8.2) 10/18/19 09:00 Albumin 2.6 g/dl (3.4-5.0) L 10/18/19 09:00 Active Medications Heparin Sodium (Porcine) (Heparin -) 5,000 unit SQ TID [facility] Potassium Chloride (Potassium Chloride 10 Meq Premix Ivpb -) 10 meq in 100 mls @ 100 mls/hr IVPB Q60M DIRK Stop: 10/18/19 13:29 Last Admin: 10/18/19 11:22 Dose: 100 mls/hr Documented by: ASSESSMENT AND PLAN: 59 yo with PMH of CHF HTN CKD (stage 5; recent L AV fistula placed) was called to come to the ED by Dr Ramsey for a potassium of 2.7. # Hypokalemia 2/2 Furosemide and lokelma -pt is euvolemic, hold furosemide and lokelma, potassium supplement -EKG reviewed -pt is asymptomatic -trend electrolytes and repeat EKG -can be discharged once potassium corrected. -case discussed with chainstitch zipper setter CKD stage5 CHF HTN DVT prophylaxis
--- NOTE | 2019-10-18 14:55 | EKG ---
Test Reason : Blood Pressure : / mmHG Vent. Rate : 063 BPM Atrial Rate : 063 BPM P-R Int : 160 ms QRS Dur : 092 ms QT Int : 480 ms P-R-T Axes : 049 -49 105 degrees QTc Int : 491 ms SINUS RHYTHM WITH MARKED SINUS ARRHYTHMIA POSSIBLE LEFT ATRIAL ENLARGEMENT LEFT AXIS DEVIATION NONSPECIFIC T WAVE ABNORMALITY ABNORMAL ECG WHEN COMPARED WITH ECG OF 21-NOV-2018 13:28, NON-SPECIFIC CHANGE IN ST SEGMENT IN ANTERIOR LEADS NONSPECIFIC T WAVE ABNORMALITY NOW EVIDENT IN INFERIOR LEADS NONSPECIFIC T WAVE ABNORMALITY NOW EVIDENT IN ANTERIOR LEADS Confirmed by TIMOTEO WINCHESTER MD ([id number]) on 10/18/2019 2:55:03 PM Referred By: Confirmed By:TIMOTEO WINCHESTER MD
--- NOTE | 2019-10-18 16:07 | CONSULT ---
Consult Consult Specialty:: Nephrology Reason for Consultation:: CKD - History of Present Illness Chief Complaint: I sent her in for hypokalemia History of Present Illness: Pt is a 59 year old female with pmhx of ckd, htn and anemia who I sent to the ER for hypokalemia. I saw her in the office on Monday for increased lower ext edema. I gave her lasix to take for a few days to help with edema. I checked her potassium and it was 2.7. Pt was previously hyperkalemic as she has advanced ckd. She was on Lokelma at home. She feels well and denies chest discomfort or palpitations. She says lower ext edema is resolved. - History Source History Provided By: Patient - Past Medical History Cardio/Vascular: Yes: HTN Hepatobiliary: Yes: Hepatitis C Renal/: Yes: Renal Inusuff ...: No - Alcohol/Substance Use Hx Alcohol Use: No - Smoking History Smoking history: Current every day smoker Have you smoked in the past 12 months: Yes Aproximately how many cigarettes per day: 20 Home Medications - Allergies Allergies/Adverse Reactions: Allergies Allergy/AdvReac Type Severity Reaction Status Date / Time ampicillin Allergy Severe Verified 10/18/19 08:25 Penicillins Allergy Severe Verified 10/18/19 08:25 shellfish derived Allergy Severe Verified 10/18/19 08:25 - Home Medications Home Medications: Ambulatory Orders Amlodipine Besylate 10 mg PO DAILY 10/04/19 Atorvastatin Ca [Lipitor] 10 mg PO HS 10/04/19 Budesonide/Formeterol Fumarate [SYMBICORT 160/4.5mcg -] 2 inh PO BID 10/04/19 Carvedilol 25 mg PO BID 10/04/19 Cholecalciserol 0.25 mg PO DAILY 10/04/19 Hydralazine HCl 100 mg PO DAILY 10/04/19 Isosorbide Mononitrate [Isosorbide Mononitrate ER] 30 mg PO DAILY 10/04/19 Omeprazole 40 mg PO DAILY 10/04/19 Family Medical History Family Hx Diabetes: Mother Review of Systems - Review of Systems Constitutional: reports: No Symptoms Eyes: reports: No Symptoms HENT: reports: No Symptoms Neck: reports: No Symptoms Cardiovascular: reports: No Symptoms Respiratory: reports: No Symptoms Gastrointestinal: reports: No Symptoms Genitourinary: reports: No Symptoms Musculoskeletal: reports: No Symptoms Integumentary: reports: No Symptoms Neurological: reports: No Symptoms Endocrine: reports: No Symptoms Hematology/Lymphatic: reports: No Symptoms Psychiatric: reports: No Symptoms Physical Exam Vital Signs: Vital Signs Temperature 98.6 F 10/18/19 08:26 Pulse Rate 73 10/18/19 08:26 Respiratory Rate 16 10/18/19 08:26 Blood Pressure 167/69 10/18/19 08:26 O2 Sat by Pulse Oximetry (%) 96 10/18/19 08:26 Constitutional: Yes: Calm Eyes: Yes: Conjunctiva Clear HENT: Yes: Atraumatic Cardiovascular: Yes: S1, S2 Respiratory: Yes: CTA Bilaterally Gastrointestinal: Yes: Soft Renal/: Yes: WNL Musculoskeletal: Yes: WNL, Other (fistula with thrill and bruit) Edema: No Neurological: Yes: Oriented Psychiatric: Yes: Oriented Labs: CBC, BMP 10/18/19 09:00 10/18/19 09:00 Problem List - Problems (1) Anemia Code(s): D64.9 - ANEMIA, UNSPECIFIED Qualifiers: Anemia type: unspecified type Qualified Code(s): D64.9 - Anemia, unspecified (2) Hypokalemia Code(s): E87.6 - HYPOKALEMIA Assessment/Plan Current Medications Generic Name Dose Route Start Last Admin Trade Name Freq PRN Reason Stop Dose Admin Heparin Sodium (Porcine) 5,000 unit 10/18/19 14:00 Heparin - SQ TID DIRK Impression 1. CKD 2. hypokalemia 3. anemia 4. hep c treated 5. htn Plan - give potassium 40 meq po and 3 runs of 10 mew iv - repeat potassium after supplements - stop lokelma - hold sodium bicarb for now - pt responded to lasix and does not need more - will order dose of procrit for anemia - discussed with ER and medical team - will attempt to hold of on HD until fistula is ready to use, it is still immature
[2019-10-18] MEDS ORDERED: HEPARIN NA (PORCINE) 5,000 UNITS/ML 1ML VIAL ONE ×2 (16:25→22:22)
[2019-10-18] MEDS: HEPARIN NA (PORCINE) 5,000 UNITS/ML 1ML VIAL SQ SCH ×2 (16:58→22:32)
[2019-10-18] MEDS ORDERED: EPOETIN ALFA 20,000 UNIT/1 ML VIAL SQ ONE (18:10)
[2019-10-18 19:18] LABS: BLOOD UREA NITROGEN 57.3 mg/dL (7-18); CALCIUM 7.4 mg/dL (8.5-10.1); CREATININE 6.5 mg/dL (0.55-1.3); MAGNESIUM 2.2 mg/dL (1.8-2.4); POTASSIUM 3.1 mmol/L (3.5-5.1)
[2019-10-18] MEDS ORDERED: POTASSIUM CHLORIDE TABS 20 MEQ TABLET.ER (FP) PO ONE ×2 (22:27→22:49)
[2019-10-18 23:27] VITALS: BMI 21.8
[2019-10-19] MEDS ORDERED: ATORVASTATIN CA 10 MG TABLET (FP) PO SCH (00:28)
[2019-10-19] MEDS ORDERED: PATIENT'S OWN MEDICATION (NON-FORMULARY) (Hydralazine Hcl [Hydralazine Hcl] 100 MG) PO SCH (00:28)
[2019-10-19] MEDS ORDERED: PATIENT'S OWN MEDICATION (NON-FORMULARY) (Omeprazole [Omeprazole] 40 MG) PO SCH (00:28)
[2019-10-19] MEDS: amLODIPine BESYLATE 10 MG TABLET (FP) PO SCH ×2 (01:12→09:32)
[2019-10-19] MEDS: ISOSORBIDE MONONITRATE 30 MG TAB.SR.24H (FP) PO SCH ×2 (01:12→09:32)
[2019-10-19] MEDS: CARVEDILOL 25 MG TABLET (FP) PO SCH ×2 (01:12→09:32)
[2019-10-19] MEDS: KCL 10 MEQ IVPB 10 MEQ/100 ML INFUS.BAG IVPB SCH ×5 (01:14→10:45)
[2019-10-19] MEDS ORDERED: ACETAMINOPHEN 325 MG TABLET (FP) PO PRN (01:34)
[2019-10-19] MEDS ORDERED: PANTOPRAZOLE 40 MG TABLET PO SCH (07:00)
[2019-10-19] MEDS: HEPARIN NA (PORCINE) 5,000 UNITS/ML 1ML VIAL SQ SCH ×2 (07:15→13:13)
[2019-10-19 07:26] LABS: BASO % 0.4 % (0-2.0); EOS % 3.3 % (0-4.5); HEMATOCRIT 22.2 % (32.4-45.2); LYMPH % 28.6 % (8-40); MCH 21.4 pg (25.7-33.7); MCHC 31.4 g/dl (32.0-36.0); MEAN CELL VOLUME 68.2 fl (80-96); MEAN PLT VOLUME 8.9 fl (7.5-11.1); MONO % 9.7 % (3.8-10.2); PLATELET COUNT 281 K/MM3 (134-434); RBC 3.25 M/mm3 (3.60-5.2); RDW 15.2 % (11.6-15.6); WHITE BLOOD COUNT 7.7 K/mm3 (4.0-10.0)
[2019-10-19 07:49] LABS: ALBUMIN 2.5 g/dl (3.4-5.0); BILIRUBIN,TOTAL 0.6 mg/dL (0.2-1); BLOOD UREA NITROGEN 63.9 mg/dL (7-18); CALCIUM 7.6 mg/dL (8.5-10.1); CREATININE 6.6 mg/dL (0.55-1.3); MAGNESIUM 2.2 mg/dL (1.8-2.4); PHOSPHOROUS 2.9 mg/dL (2.5-4.9); POTASSIUM 3.1 mmol/L (3.5-5.1); TOT PROT 6.5 g/dl (6.4-8.2)
[2019-10-19] MEDS ORDERED: POTASSIUM CHLORIDE TABS 20 MEQ TABLET.ER (FP) PO ONE ×2 (08:08→17:26)
[2019-10-19] MEDS ORDERED: hydrALAZINE HCL 50 MG TABLET (FP) PO SCH (10:00)
[2019-10-19] MEDS ORDERED: BUDESONIDE/FORMETEROL FUMARATE 160/4.5 mcg INHALER IH SCH (10:00)
--- NOTE | 2019-10-19 14:22 | PN ---
Teaching Attending Note Name of Resident: Eun Villagomez ATTENDING PHYSICIAN STATEMENT I saw and evaluated the patient. I reviewed the resident's note and discussed the case with the resident. I agree with the resident's findings and plan as documented. SUBJECTIVE: pt seen and examined OBJECTIVE: Last Vital Signs Temp Pulse Resp BP Pulse Ox 98.2 F 63 20 148/75 100 10/19/19 09:34 10/19/19 09:34 10/19/19 09:34 10/19/19 09:34 10/19/19 09:34 GENERAL: Awake, alert, and fully oriented, in no acute distress. LUNGS: Breath sounds equal, clear to auscultation bilaterally. No wheezes, and no crackles. No accessory muscle use. HEART: Regular rate and rhythm, normal S1 and S2 ABDOMEN: Soft, nontender, not distended MUSCULOSKELETAL: Normal range of motion at all joints. No bony deformities or tenderness. No CVA tenderness. UPPER EXTREMITIES: 2+ pulses, warm, well-perfused. No cyanosis. No clubbing. No peripheral edema., lt arm fistula with thrill LOWER EXTREMITIES: 2+ pulses, warm, well-perfused. No calf tenderness. No peripheral edema. NEUROLOGICAL: Cranial nerves II-XII intact. Normal speech. CBCD WBC 7.7 K/mm3 (4.0-10.0) 10/19/19 06:02 RBC 3.25 M/mm3 (3.60-5.2) L 10/19/19 06:02 Hgb 7.0 GM/dL (10.7-15.3) L 10/19/19 06:02 Hct 22.2 % (32.4-45.2) L 10/19/19 06:02 MCV 68.2 fl (80-96) L 10/19/19 06:02 MCHC 31.4 g/dl (32.0-36.0) L 10/19/19 06:02 RDW 15.2 % (11.6-15.6) 10/19/19 06:02 Plt Count 281 K/MM3 (134-434) 10/19/19 06:02 MPV 8.9 fl (7.5-11.1) 10/19/19 06:02 CMP Sodium 145 mmol/L (136-145) 10/19/19 06:02 Potassium 3.1 mmol/L (3.5-5.1) L 10/19/19 06:02 Chloride 112 mmol/L (98-107) H 10/19/19 06:02 Carbon Dioxide 25 mmol/L (21-32) 10/19/19 06:02 Anion Gap 8 MMOL/L (8-16) 10/19/19 06:02 BUN 63.9 mg/dL (7-18) H 10/19/19 06:02 Creatinine 6.6 mg/dL (0.55-1.3) H 10/19/19 06:02 Calcium 7.6 mg/dL (8.5-10.1) L 10/19/19 06:02 Total Bilirubin 0.6 mg/dL (0.2-1) 10/19/19 06:02 AST 12 U/L (15-37) L 10/19/19 06:02 ALT 10 U/L (13-61) L 10/19/19 06:02 Alkaline Phosphatase 92 U/L (45-117) 10/19/19 06:02 Total Protein 6.5 g/dl (6.4-8.2) 10/19/19 06:02 Albumin 2.5 g/dl (3.4-5.0) L 10/19/19 06:02 Active Medications Acetaminophen (Tylenol -) 650 mg PO Q6H PRN PRN Reason: Fever Or Pain Last Admin: 10/19/19 01:51 Dose: 650 mg Documented by: Amlodipine Besylate (Norvasc -) 10 mg PO DAILY [facility] Last Admin: 10/19/19 09:32 Dose: 10 mg Documented by: Atorvastatin Calcium (Lipitor -) 10 mg PO HS [facility] Last Admin: 10/19/19 01:12 Dose: 10 mg Documented by: Budesonide/Formoterol Fumarate (Symbicort 160/4.5mcg -) 2 puff IH BID [facility] Last Admin: 10/19/19 10:45 Dose: 2 puff Documented by: Carvedilol (Coreg -) 25 mg PO BID [facility] Last Admin: 10/19/19 09:32 Dose: 25 mg Documented by: Heparin Sodium (Porcine) (Heparin -) 5,000 unit SQ TID [facility] Last Admin: 10/19/19 13:13 Dose: 5,000 unit Documented by: Hydralazine HCl (Apresoline -) 100 mg PO DAILY [facility] Last Admin: 10/19/19 09:32 Dose: 100 mg Documented by: Isosorbide Mononitrate (Imdur -) 30 mg PO DAILY [facility] Last Admin: 10/19/19 09:32 Dose: 30 mg Documented by: Pantoprazole Sodium (Protonix -) 40 mg PO ACBK [facility] Last Admin: 10/19/19 07:15 Dose: 40 mg Documented by: ASSESSMENT AND PLAN: 59 yo with PMH of CHF HTN CKD (stage 5; recent L AV fistula placed) was called to come to the ED by Dr Ramsey for a potassium of 2.7. # Hypokalemia 2/2 Furosemide and lokelma -pt is euvolemic, hold furosemide and lokelma, potassium supplement -EKG reviewed -pt is asymptomatic -trend electrolytes and repeat EKG -can be discharged once potassium corrected. -case discussed with electronic die maker CKD stage5 CHF HTN DVT prophylaxis
[2019-10-19 15:18] VITALS: BP 142/73; PULSE 80; TEMP 98.3
--- NOTE | 2019-10-19 16:02 | PN ---
Progress Note (short form) - Note Progress Note: RENAL pt is awake and alert comfortable her potassium was low Last Vital Signs Temp Pulse Resp BP Pulse Ox 98.3 F 80 18 142/73 100 10/19/19 14:15 10/19/19 14:15 10/19/19 14:15 10/19/19 14:15 10/19/19 09:34 lungs clear cvs s1s2 rr abd soft ext no edema neuro a+ox3 CBC, BMP 10/19/19 06:02 10/19/19 06:02 Current Medications Generic Name Dose Route Start Last Admin Trade Name Freq PRN Reason Stop Dose Admin Acetaminophen 650 mg 10/19/19 01:34 10/19/19 01:51 Tylenol - PO 650 mg Q6H PRN Administration Fever Or Pain Amlodipine Besylate 10 mg 10/19/19 00:28 10/19/19 09:32 Norvasc - PO 10 mg DAILY DIRK Administration Atorvastatin Calcium 10 mg 10/19/19 00:28 10/19/19 01:12 Lipitor - PO 10 mg HS DIRK Administration Budesonide/Formoterol Fumarate 2 puff 10/19/19 10:00 10/19/19 10:45 Symbicort 160/4.5mcg - IH 2 puff BID DIRK Administration Carvedilol 25 mg 10/19/19 00:30 10/19/19 09:32 Coreg - PO 25 mg BID DIRK Administration Heparin Sodium (Porcine) 5,000 unit 10/18/19 14:00 10/19/19 13:13 Heparin - SQ 5,000 unit TID DIRK Administration Hydralazine HCl 100 mg 10/19/19 10:00 10/19/19 09:32 Apresoline - PO 100 mg DAILY DIRK Administration Isosorbide Mononitrate 30 mg 10/19/19 00:28 10/19/19 09:32 Imdur - PO 30 mg DAILY DIRK Administration Pantoprazole Sodium 40 mg 10/19/19 07:00 10/19/19 07:15 Protonix - PO 40 mg ACBK DIRK Administration IMPRESSION ckd stage 5 hypokalemia due to lokelma and diuretics. She also recently had diarrhea PLAN check bmp now and if k is better dc patient tell her she needs to follow up with Dr Ramsey MV
[2019-10-19 16:22] LABS: BASO % 0.8 % (0-2.0); EOS % 3.8 % (0-4.5); HEMATOCRIT 23.3 % (32.4-45.2); HEMOGLOBIN 7.4 GM/dL (10.7-15.3); LYMPH % 25.9 % (8-40); MCH 21.8 pg (25.7-33.7); MCHC 31.5 g/dl (32.0-36.0); MEAN CELL VOLUME 69.2 fl (80-96); MONO % 7.7 % (3.8-10.2); NEUT % 61.8 % (42.8-82.8); PLATELET COUNT 271 K/MM3 (134-434); RBC 3.38 M/mm3 (3.60-5.2); RDW 15.5 % (11.6-15.6); WHITE BLOOD COUNT 7.4 K/mm3 (4.0-10.0)
[2019-10-19 16:58] LABS: ALBUMIN 2.6 g/dl (3.4-5.0); BILIRUBIN,TOTAL 0.2 mg/dL (0.2-1); CREATININE 6.4 mg/dL (0.55-1.3); TOT PROT 6.7 g/dl (6.4-8.2)
[2019-10-19 16:59] LABS: BLOOD UREA NITROGEN 57.1 mg/dL (7-18); CALCIUM 8.1 mg/dL (8.5-10.1); MAGNESIUM 2.4 mg/dL (1.8-2.4); POTASSIUM 3.3 mmol/L (3.5-5.1)
--- NOTE | 2019-10-19 17:17 | PN ---
Physical Exam: SUBJECTIVE: Patient seen and examined at bedside. She reports she is feeling well and would like to go home. She denies any chest pain, palpitations, SOB, Nausea, vomiting, diarrhea, fever, or chills OBJECTIVE: Vital Signs Period Temp Pulse Resp BP Sys/Espinosa Pulse Ox Last 24 Hr 98.2 F-101 F 63-83 18-20 142-166/73-85 96-100 GENERAL: Awake, alert, and fully oriented, in no acute distress. EYES:PEERLA: EOMI no scleral ictuers NECK:no JVD; no lymphadenopathy LUNGS: BCTA Bl no rales, rhonchi or wheezing HEART: Regular rate and rhythm, normal S1 and S2 without murmur, rub or gallop. ABDOMEN: Soft, NT ND +BS MUSCULOSKELETAL: Normal range of motion at all joints. No bony deformities or tenderness. No CVA tenderness. UPPER EXTREMITIES: L AV fitsula w/ palpable thrill LOWER EXTREMITIES: wamr; well-perfused no clubbinc/cyanosis or edema NEUROLOGICAL: Cranial nerves II-XII intact. Normal speech. Normal gait. PSYCHIATRIC: Cooperative. Good eye contact. Appropriate mood and affect. SKIN: Warm, dry, normal turgor, no rashes or lesions noted, normal capillary refill. Laboratory Results - last 24 hr 10/18/19 10/18/19 10/19/19 13:45 17:44 06:02 WBC 7.7 RBC 3.25 L Hgb 7.0 L Hct 22.2 L MCV 68.2 L MCH 21.4 L MCHC 31.4 L RDW 15.2 Plt Count 281 MPV 8.9 Absolute Neuts (auto) 4.5 Neutrophils % 58.0 Lymphocytes % 28.6 Monocytes % 9.7 Eosinophils % 3.3 Basophils % 0.4 Nucleated RBC % 0 Sodium 145 Potassium 3.1 L Chloride 110 H Carbon Dioxide 27 Anion Gap 8 BUN 57.3 H Creatinine 6.5 H Est GFR (CKD-EPI)AfAm 7.33 Est GFR (CKD-EPI)NonAf 6.32 Random Glucose 98 Calcium 7.4 L Phosphorus Magnesium 2.2 Total Bilirubin AST ALT Alkaline Phosphatase Total Protein Albumin COVID-19 (KRISTA) Not detected 10/19/19 10/19/19 10/19/19 06:02 16:05 16:05 WBC 7.4 RBC 3.38 L Hgb 7.4 L Hct 23.3 L MCV 69.2 L MCH 21.8 L MCHC 31.5 L RDW 15.5 Plt Count 271 MPV 9.0 Absolute Neuts (auto) 4.5 Neutrophils % 61.8 Lymphocytes % 25.9 Monocytes % 7.7 Eosinophils % 3.8 Basophils % 0.8 Nucleated RBC % 0 Sodium 145 145 Potassium 3.1 L 3.3 L Chloride 112 H 111 H Carbon Dioxide 25 22 Anion Gap 8 12 BUN 63.9 H 57.1 H Creatinine 6.6 H 6.4 H Est GFR (CKD-EPI)AfAm 7.19 7.46 Est GFR (CKD-EPI)NonAf 6.21 6.44 Random Glucose 93 96 Calcium 7.6 L 8.1 L Phosphorus 2.9 3.0 Magnesium 2.2 2.4 Total Bilirubin 0.6 0.2 AST 12 L 15 ALT 10 L 10 L Alkaline Phosphatase 92 97 Total Protein 6.5 6.7 Albumin 2.5 L 2.6 L COVID-19 (KRISTA) Active Medications Generic Name Dose Route Start Last Admin Trade Name Freq PRN Reason Stop Dose Admin Acetaminophen 650 mg 10/19/19 01:34 10/19/19 01:51 Tylenol - PO 650 mg Q6H PRN Administration Fever Or Pain Amlodipine Besylate 10 mg 10/19/19 00:28 10/19/19 09:32 Norvasc - PO 10 mg DAILY DIRK Administration Atorvastatin Calcium 10 mg 10/19/19 00:28 10/19/19 01:12 Lipitor - PO 10 mg HS DIRK Administration Budesonide/Formoterol Fumarate 2 puff 10/19/19 10:00 10/19/19 10:45 Symbicort 160/4.5mcg - IH 2 puff BID DIRK Administration Carvedilol 25 mg 10/19/19 00:30 10/19/19 09:32 Coreg - PO 25 mg BID DIRK Administration Heparin Sodium (Porcine) 5,000 unit 10/18/19 14:00 10/19/19 13:13 Heparin - SQ 5,000 unit TID DIRK Administration Hydralazine HCl 100 mg 10/19/19 10:00 10/19/19 09:32 Apresoline - PO 100 mg DAILY [facility]IRK Administration Isosorbide Mononitrate 30 mg 10/19/19 00:28 10/19/19 09:32 Imdur - PO 30 mg DAILY [facility]K Administration Pantoprazole Sodium 40 mg 10/19/19 07:00 10/19/19 07:15 Protonix - PO 40 mg ACBK DIRK Administration ASSESSMENT/PLAN: 59 yo with PMH of CHF HTN CKD (stage 5; recent L AV fistula placed) presents with an abnormal lab value (potassium 2.7) from her out patient clinic of Dr. Ramsey. #Hypokalemia - Most likely 2/2 to her medications: Furosemide and lokelma - Patient was started on Furosemide recently for LE edema - initially, K 2.5 mag 2.1, repleted with IV KCL 10 meq x 8 bags + PO KCL 40 meq x 2 , repeat labs: K 3.3, Mag 2.4 - stop lasix and lokelma as per dr ramsey #HTN - Continue with her home medications #CKD - stopped lasix and lokelma, and sodium Bicarb, per Nephro - Nephrology, Dr ramsey on board - Will continue to monitor fluid status, I/O, and Electrolytes - Avoid nephrotoxic drugs #FEN - No standing fluids - hypokalemia- repleted, COntinue to monitor electrolytes - renal/sodium diet #DVT PPX: - heparin sq Visit type - Emergency Visit Emergency Visit: Yes ED Registration Date: 10/18/19 Care time: The patient presented to the Emergency Department on the above date and was hospitalized for further evaluation of their emergent condition. - New Patient This patient is new to me today: Yes Date on this admission: 10/20/19 - Critical Care Critical Care patient: No - Discharge Referral Referred to [facility] Med P.C.: No ATTENDING PHYSICIAN STATEMENT I saw and evaluated the patient. I reviewed the resident's note and discussed the case with the resident. I agree with the resident's findings and plan as documented. SUBJECTIVE: OBJECTIVE: ASSESSMENT AND PLAN:
--- NOTE | 2019-10-19 17:37 | DS ---
Physical Exam: SUBJECTIVE:Patient seen and examined at bedside. She reports she is feeling well and would like to go home. She denies any chest pain, palpitations, SOB, Nausea, vomiting, diarrhea, fever, or chills OBJECTIVE: Vital Signs Period Temp Pulse Resp BP Sys/Espinosa Pulse Ox Last 24 Hr 98.2 F-101 F 63-83 18-20 142-166/73-85 96-100 PHYSICAL EXAM GENERAL: Awake, alert, and fully oriented, in no acute distress. EYES:PEERLA: EOMI no scleral ictuers NECK:no JVD; no lymphadenopathy LUNGS: BCTA Bl no rales, rhonchi or wheezing HEART: Regular rate and rhythm, normal S1 and S2 without murmur, rub or gallop. ABDOMEN: Soft, NT ND +BS MUSCULOSKELETAL: Normal range of motion at all joints. No bony deformities or tenderness. No CVA tenderness. UPPER EXTREMITIES: L AV fitsula w/ palpable thrill LOWER EXTREMITIES: wamr; well-perfused no clubbinc/cyanosis or edema NEUROLOGICAL: Cranial nerves II-XII intact. Normal speech. Normal gait. PSYCHIATRIC: Cooperative. Good eye contact. Appropriate mood and affect. SKIN: Warm, dry, normal turgor, no rashes or lesions noted, normal capillary refill. LABS Laboratory Results - last 24 hr 10/18/19 10/18/19 10/19/19 13:45 17:44 06:02 WBC 7.7 RBC 3.25 L Hgb 7.0 L Hct 22.2 L MCV 68.2 L MCH 21.4 L MCHC 31.4 L RDW 15.2 Plt Count 281 MPV 8.9 Absolute Neuts (auto) 4.5 Neutrophils % 58.0 Lymphocytes % 28.6 Monocytes % 9.7 Eosinophils % 3.3 Basophils % 0.4 Nucleated RBC % 0 Sodium 145 Potassium 3.1 L Chloride 110 H Carbon Dioxide 27 Anion Gap 8 BUN 57.3 H Creatinine 6.5 H Est GFR (CKD-EPI)AfAm 7.33 Est GFR (CKD-EPI)NonAf 6.32 Random Glucose 98 Calcium 7.4 L Phosphorus Magnesium 2.2 Total Bilirubin AST ALT Alkaline Phosphatase Total Protein Albumin COVID-19 ([facility]) Not detected 10/19/19 10/19/19 10/19/19 06:02 16:05 16:05 WBC 7.4 RBC 3.38 L Hgb 7.4 L Hct 23.3 L MCV 69.2 L MCH 21.8 L MCHC 31.5 L RDW 15.5 Plt Count 271 MPV 9.0 Absolute Neuts (auto) 4.5 Neutrophils % 61.8 Lymphocytes % 25.9 Monocytes % 7.7 Eosinophils % 3.8 Basophils % 0.8 Nucleated RBC % 0 Sodium 145 145 Potassium 3.1 L 3.3 L Chloride 112 H 111 H Carbon Dioxide 25 22 Anion Gap 8 12 BUN 63.9 H 57.1 H Creatinine 6.6 H 6.4 H Est GFR (CKD-EPI)AfAm 7.19 7.46 Est GFR (CKD-EPI)NonAf 6.21 6.44 Random Glucose 93 96 Calcium 7.6 L 8.1 L Phosphorus 2.9 3.0 Magnesium 2.2 2.4 Total Bilirubin 0.6 0.2 AST 12 L 15 ALT 10 L 10 L Alkaline Phosphatase 92 97 Total Protein 6.5 6.7 Albumin 2.5 L 2.6 L COVID-19 ([facility]) HOSPITAL COURSE: Date of Admission:10/18/19 59 yo with PMH of CHF HTN CKD (stage 5; recent L AV fistula placed) presents with an abnormal lab value (potassium 2.7) from her out patient clinic of Dr. Ramsey, Admitted for treatment of Hypokalemia. Initially, K 2.5 mag 2.1, repleted with IV KCL 10 meq x 8 bags + PO KCL 40 meq x 2 , repeat labs: K 3.3, Mag 2.4. Discontinued lasix, lokelma, and sodium Bicarb, as per Dr ramsey. Patient is clinically stable for discharge. Discharged her with prescription for Potassium Citrate 10 meq Dialy, 2 tabs and advised her to Follow up with Dr. ramsey on October 22 for her follow up visit. Date of Discharge: 10/19/19 Minutes to complete discharge: 36 Discharge Summary Problems reviewed: Yes Reason For Visit: ANEMIA,HYPOKALEMIA Current Active Problems Anemia (Acute) Hypokalemia (Acute) Condition: Stable - Instructions Diet, Activity, Other Instructions: You came to the hospital because your potassium was found to be low. We gave you potassium (both IV and oral) and the number improved. You were stable to be discharged home. Please take Potassium Citrate 10 meq for 2 more days. PLease take all of your medications except: STOP taking Lasix until you see Dr Ramsey on 10/23/19 SOP taking Lokelma until you see Dr Ramsey on 10/23/19 STOP taking Sodium Bicarbonate until you see Dr Ramsey Please follow up with Dr Ramsey on MondayOct 22 Please follow up with Your PCP, Dr Whiting, within 1 weeks to follow up with your labwork and hospital visit. Please repeat your blood works. *if you begin to experience any chest pain, shortness of breath, n/v please return to the ER immediately Referrals: Eun Whiting MD [Primary Care Provider] - Yeison Ramsey MD [Staff Physician] - Disposition: HOME - Home Medications Comprehensive Discharge Medication List: Ambulatory Orders Amlodipine Besylate 10 mg PO DAILY 10/04/19 Atorvastatin Ca [Lipitor] 10 mg PO HS 10/04/19 Budesonide/Formeterol Fumarate [SYMBICORT 160/4.5mcg -] 2 inh PO BID 10/04/19 Carvedilol 25 mg PO BID 10/04/19 Hydralazine HCl 100 mg PO TID 10/04/19 Isosorbide Mononitrate [Isosorbide Mononitrate ER] 30 mg PO DAILY 10/04/19 Omeprazole 40 mg PO DAILY 10/04/19 This patient is new to me today: Yes Date on this admission: 10/20/19 Emergency Visit: Yes ED Registration Date: 10/18/19 Care time: The patient presented to the Emergency Department on the above date and was hospitalized for further evaluation of their emergent condition. Critical Care patient: No - Discharge Referral Referred to [facility] No ATTENDING PHYSICIAN STATEMENT I saw and evaluated the patient. I reviewed the resident's note and discussed the case with the resident. I agree with the resident's findings and plan as documented. SUBJECTIVE: OBJECTIVE: ASSESSMENT AND PLAN:
== END 2019-10-19 18:13 | disposition home or self-care (01) | DRG 425 ==
LOC: JER 08:23 → JERBED 10:23 → J4W 10-19 00:12
PROVIDERS: ADMIT Student in an Organized Health Care Education/Training Program
DX: E87.6 Hypokalemia (principal); I13.0 Hypertensive heart and chronic kidney disease with heart failure and stage 1 through stage 4 chronic kidney disease, or unspecified chronic kidney disease; N18.5 Chronic kidney disease, stage 5; I50.9 Heart failure, unspecified; D64.9 Anemia, unspecified; T50.1X5A Adverse effect of loop [high-ceiling] diuretics, initial encounter
CPT/HCPCS: 36415; 80048; 80053; 83735; 84100; 85025; 93005; 93010; 99285-25; J0885; J1644; U0003

== ENCOUNTER 2020-01-06 08:51 | Inpatient (IN) | payer OTHER ==
[2020-01-06 12:46] LABS: BASO % 0.6 % (0-2.0); EOS % 10.2 % (0-4.5); HEMATOCRIT 31.4 % (32.4-45.2); HEMOGLOBIN 9.6 GM/dL (10.7-15.3); LYMPH % 21.9 % (8-40); MCH 21.8 pg (25.7-33.7); MCHC 30.6 g/dl (32.0-36.0); MEAN CELL VOLUME 71.1 fl (80-96); MEAN PLT VOLUME 9.3 fl (7.5-11.1); MONO % 4.7 % (3.8-10.2); NEUT % 62.6 % (42.8-82.8); PLATELET COUNT 255 K/MM3 (134-434); RBC 4.42 M/mm3 (3.60-5.2); RDW 17.7 % (11.6-15.6); WHITE BLOOD COUNT 8.4 K/mm3 (4.0-10.0)
[2020-01-06 12:54] LABS: INR 1.05 (0.83-1.09); PROTHROMBIN TIME (PATIENT) 12.7 SEC (9.7-13.0)
[2020-01-06 12:56] LABS: ACTIVATED PTT 30.6 SECONDS (25.2-36.5)
[2020-01-06 13:08] LABS: POTASSIUM 5.8 mmol/L (3.5-5.1)
[2020-01-06 13:11] LABS: CALCIUM 8.9 mg/dL (8.5-10.1)
[2020-01-06 13:12] LABS: ALBUMIN 3.6 g/dl (3.4-5.0)
[2020-01-06 13:17] LABS: BILIRUBIN,TOTAL 0.8 mg/dL (0.2-1); TOT PROT 8.8 g/dl (6.4-8.2)
[2020-01-06 13:19] LABS: BLOOD UREA NITROGEN 128.7 mg/dL (7-18)
[2020-01-06 13:20] LABS: CREATININE 8.2 mg/dL (0.55-1.3)
[2020-01-06] MEDS ORDERED: INSULIN REGULAR HUMAN 100 UNITS/ML *VIAL IVPUSH ONE ×2 (13:35→23:43)
[2020-01-06] MEDS ORDERED: SODIUM ZIRCONIUM CYCLOSILICATE (LOKELMA) 5 GM PACKET PO ONE (13:35)
[2020-01-06] MEDS ORDERED: ALBUTEROL SO4 0.083% IH SOL 2.5 MG/3 ML VIAL.NEB. NEB ONE (13:35)
[2020-01-06] MEDS ORDERED: DEXTROSE 50%-WATER - 25 GM/50 ML VIAL IVPUSH ONE ×2 (13:35→23:20)
[2020-01-06] MEDS ORDERED: DEXTROSE 50%-WATER 25 GM/50 ML DISP.SYRIN ONE (13:49)
[2020-01-06] MEDS ORDERED: INSULIN REGULAR HUMAN 100 UNITS/ML *VIAL ONE (13:50)
[2020-01-06] MEDS ORDERED: SODIUM ZIRCONIUM CYCLOSILICATE (LOKELMA) 5 GM PACKET ONE (13:50)
[2020-01-06] MEDS ORDERED: HEPARIN NA (PORCINE) 5,000 UNITS/ML 1ML VIAL SQ SCH (14:00)
[2020-01-06] MEDS ORDERED: SODIUM BICARBONATE 650 MG TABLET PO SCH (14:00)
[2020-01-06 14:41] LABS: ANISOCYTOSIS 1+; MACROCYTOSIS 0; PLATELET ESTIMATE NORMAL
[2020-01-06] MEDS ORDERED: amLODIPine BESYLATE 10 MG TABLET (FP) PO SCH (15:20)
[2020-01-06] MEDS ORDERED: ISOSORBIDE MONONITRATE 30 MG TAB.SR.24H (FP) PO SCH (15:20)
[2020-01-06] MEDS ORDERED: CARVEDILOL 12.5 MG TABLET (FP) ONE (16:01)
[2020-01-06] MEDS ORDERED: hydrALAZINE HCL 25 MG TABLET (FP) ONE (16:01)
[2020-01-06] MEDS ORDERED: HEPARIN NA (PORCINE) 5,000 UNITS/ML 1ML VIAL ONE (16:02)
[2020-01-06] MEDS ORDERED: SODIUM CHLORIDE 0.45% 1,000 ML IV SCH ×2 (16:15→19:48)
[2020-01-06] MEDS ORDERED: ONDANSETRON 4 MG/2 ML VIAL IVPUSH PRN ×2 (17:03→19:48)
[2020-01-06] MEDS ORDERED: LIDOCAINE HCL/PF 2% SDV 5ML VIAL ONE (17:12)
[2020-01-06] MEDS ORDERED: MIDAZOLAM HCL 2 MG/2 ML SINGLE DOSE VIAL ONE (17:12)
[2020-01-06] MEDS ORDERED: LIDOCAINE HCL 1%, 10 MG/ML (20ML VIAL) NR ONE (17:57)
[2020-01-06] MEDS ORDERED: PROPOFOL 20 ML ONE (18:34)
[2020-01-06] MEDS ORDERED: POVIDONE-IODINE OINTMENT 10% - 28.4 GM TUBE ONE (18:36)
[2020-01-06] MEDS ORDERED: POVIDONE-IODINE OINTMENT 10% - 28.4 GM TUBE TP ONE (19:15)
[2020-01-06] MEDS ORDERED: ACETAMINOPHEN 325 MG TABLET (FP) PO PRN ×2 (20:00)
[2020-01-06] MEDS ORDERED: oxyCODONE HCL 5 MG TABLET PO PRN (20:00)
[2020-01-06] MEDS ORDERED: CARVEDILOL 25 MG TABLET (FP) PO SCH (22:00)
[2020-01-06] MEDS ORDERED: ATORVASTATIN CA 10 MG TABLET (FP) PO SCH ×2 (22:00)
[2020-01-06] MEDS ORDERED: BUDESONIDE/FORMETEROL FUMARATE 160/4.5 mcg INHALER IH SCH (22:00)
[2020-01-06] MEDS ORDERED: hydrALAZINE HCL 50 MG TABLET (FP) PO SCH (22:00)
[2020-01-06] MEDS: CARVEDILOL 25 MG TABLET (FP) PO SCH (22:03)
[2020-01-06] MEDS: SODIUM BICARBONATE 650 MG TABLET PO SCH (22:03)
[2020-01-06] MEDS: hydrALAZINE HCL 50 MG TABLET (FP) PO SCH (22:04)
[2020-01-06] MEDS: HEPARIN NA (PORCINE) 5,000 UNITS/ML 1ML VIAL SQ SCH (22:04)
[2020-01-06] MEDS: BUDESONIDE/FORMETEROL FUMARATE 160/4.5 mcg INHALER IH SCH ×2 (22:04→23:06)
[2020-01-06 22:24] LABS: CALCIUM 8.4 mg/dL (8.5-10.1)
[2020-01-06 22:44] LABS: BLOOD UREA NITROGEN 127.7 mg/dL (7-18); CREATININE 8.3 mg/dL (0.55-1.3)
[2020-01-06] MEDS ORDERED: CALCIUM GLUCONATE 10% - 1,000 MG/10 ML VIAL IVPUSH ONE (23:18)
[2020-01-06] MEDS ORDERED: INSULIN (NOVOLOG) ASPART 100 UNITS/ML 10ML VIAL SQ ONE (23:19)
[2020-01-06] MEDS ORDERED: SODIUM BICARBONATE 8.4% 50 MEQ/50 ML VIAL IV SCH (23:30)
[2020-01-06] MEDS ORDERED: SODIUM BICARBONATE 8.4% 50 MEQ/50 ML VIAL IV ONE (23:43)
[2020-01-07] MEDS ORDERED: SODIUM CHLORIDE 0.45% 1,000 ML IV SCH (00:17)
[2020-01-07] MEDS ORDERED: SODIUM ZIRCONIUM CYCLOSILICATE (LOKELMA) 10 GM PACKET PO ONE ×3 (00:42→23:19)
[2020-01-07 03:59] LABS: EPI CELLS 7 /uL (0-25.1); HYALINE CASTS 0 /uL (0-3.1); PH,URINE 8.5 (5.0-8.0); URINE APPEARANCE CLEAR; URINE BACTERIA 23 /uL (0-1359); URINE BILIRUBIN NEGATIVE (NEGATIVE); URINE COLOR YELLOW; URINE GLUCOSE (UA) NEGATIVE (NEGATIVE); URINE KETONE NEGATIVE (NEGATIVE); URINE LEUK ESTERASE NEGATIVE (NEGATIVE); URINE NITRITE NEGATIVE (NEGATIVE); URINE PROTEIN 3+ (NEGATIVE); URINE RBC 4 /uL (0-23.9); URINE UROBILINOGEN 0.2 mg/dL (0.2-1.0); URINE WBC 7 /uL (0-25.8)
[2020-01-07 05:41] VITALS: BMI 20.3
[2020-01-07] MEDS: hydrALAZINE HCL 50 MG TABLET (FP) PO SCH ×2 (06:14→14:21)
[2020-01-07] MEDS: SODIUM BICARBONATE 650 MG TABLET PO SCH ×2 (06:14→14:21)
[2020-01-07] MEDS: HEPARIN NA (PORCINE) 5,000 UNITS/ML 1ML VIAL SQ SCH ×2 (06:15→14:21)
[2020-01-07] MEDS ORDERED: PT OWN MED DRAWER 7, Y5N ONE (06:57)
[2020-01-07 08:10] LABS: HEMATOCRIT 26.3 % (32.4-45.2); HEMOGLOBIN 8.2 GM/dL (10.7-15.3); MCH 21.8 pg (25.7-33.7); MCHC 31.1 g/dl (32.0-36.0); MEAN PLT VOLUME 8.8 fl (7.5-11.1); PLATELET COUNT 205 K/MM3 (134-434); RBC 3.75 M/mm3 (3.60-5.2); RDW 17.2 % (11.6-15.6); WHITE BLOOD COUNT 8.5 K/mm3 (4.0-10.0)
[2020-01-07 08:26] LABS: CALCIUM 8.5 mg/dL (8.5-10.1)
[2020-01-07 08:27] LABS: ALBUMIN 2.6 g/dl (3.4-5.0); MAGNESIUM 2.4 mg/dL (1.8-2.4)
[2020-01-07 08:30] LABS: PHOSPHOROUS 5.1 mg/dL (2.5-4.9)
[2020-01-07 08:32] LABS: BILIRUBIN,TOTAL 0.4 mg/dL (0.2-1)
[2020-01-07 08:36] LABS: TOT PROT 6.6 g/dl (6.4-8.2)
[2020-01-07 08:40] LABS: BLOOD UREA NITROGEN 124.1 mg/dL (7-18); CREATININE 8.4 mg/dL (0.55-1.3)
[2020-01-07] MEDS: oxyCODONE HCL 5 MG TABLET PO PRN ×2 (09:03→16:27)
[2020-01-07] MEDS: CARVEDILOL 25 MG TABLET (FP) PO SCH (09:04)
[2020-01-07] MEDS: BUDESONIDE/FORMETEROL FUMARATE 160/4.5 mcg INHALER IH SCH (09:05)
[2020-01-07] MEDS ORDERED: amLODIPine BESYLATE 10 MG TABLET (FP) PO SCH ×2 (10:00)
[2020-01-07] MEDS ORDERED: ISOSORBIDE MONONITRATE 30 MG TAB.SR.24H (FP) PO SCH ×2 (10:00)
[2020-01-07 15:24] VITALS: BP 160/68; PULSE 69; TEMP 97.9
== END 2020-01-07 19:16 | disposition home or self-care (01) | DRG 182 ==
LOC: JER 08:51 → JERBED 14:51 → J6S 20:36
PROC: 05LC0ZZ Occlusion of Left Basilic Vein, Open Approach (ICD-10-PCS; 2020-01-06)
PROC: 03U Upper Arteries, Supplement (ICD-10-PCS; principal; 2020-01-06 16:00)
DX: I13.2 Hypertensive heart and chronic kidney disease with heart failure and with stage 5 chronic kidney disease, or end stage renal disease (principal); E46 Unspecified protein-calorie malnutrition; N18.6 End stage renal disease; E87.5 Hyperkalemia; R94.31 Abnormal electrocardiogram [ECG] [EKG]; E78.5 Hyperlipidemia, unspecified; I50.20 Unspecified systolic (congestive) heart failure; I77.0 Arteriovenous fistula, acquired; D63.1 Anemia in chronic kidney disease; R64 Cachexia; Z68.1 Body mass index [BMI] 19.9 or less, adult
CPT/HCPCS: 36415; 71046-TC-FY; 80048; 80053; 81003; 83735; 84100; 84132; 85025; 85027; 85610; 85730; 86850; 86900; 86901; 93005; 93010; 94760; 99285-25; C9803; J1644; U0003

== ENCOUNTER 2020-04-03 11:29 | Day surgery (SDC) | payer OTHER ==
[2020-04-03 12:08] VITALS: BMI 22.6
[2020-04-03 13:29] LABS: BASO % 0.4 % (0-2.0); EOS % 4.2 % (0-4.5); HEMATOCRIT 34.6 % (32.4-45.2); HEMOGLOBIN 10.7 GM/dL (10.7-15.3); LYMPH % 15.4 % (8-40); MCH 23.2 pg (25.7-33.7); MONO % 8.5 % (3.8-10.2); NEUT % 71.5 % (42.8-82.8); PLATELET COUNT 265 K/MM3 (134-434); RBC 4.61 M/mm3 (3.60-5.2); RDW 19.2 % (11.6-15.6); WHITE BLOOD COUNT 9.3 K/mm3 (4.0-10.0)
[2020-04-03 13:43] LABS: INR 1.05 (0.83-1.09); PROTHROMBIN TIME (PATIENT) 12.9 SEC (9.7-13.0)
[2020-04-03 13:45] LABS: ACTIVATED PTT 23.5 SECONDS (25.2-36.5)
[2020-04-03 13:57] LABS: BLOOD UREA NITROGEN 72.5 mg/dL (7-18); CALCIUM 7.9 mg/dL (8.5-10.1); CO2 23 mmol/L (21-32); MAGNESIUM 2.9 mg/dL (1.8-2.4)
[2020-04-03 13:58] LABS: GLUCOSE,RANDOM 96 mg/dL (74-106)
[2020-04-03 14:00] LABS: SGOT/AST 125 U/L (15-37)
[2020-04-03 14:01] LABS: PHOSPHOROUS 6.1 mg/dL (2.5-4.9)
[2020-04-03 14:02] LABS: BILIRUBIN,TOTAL 0.4 mg/dL (0.2-1); TOT PROT 8.3 g/dl (6.4-8.2)
[2020-04-03 14:03] LABS: ALK PHOS 142 U/L (45-117)
[2020-04-03 14:05] LABS: SGPT/ALT 25 U/L (13-61)
[2020-04-03 14:12] LABS: ANION GAP 1 MMOL/L (8-16); CHLORIDE 108 mmol/L (98-107); SODIUM 132 mmol/L (136-145)
[2020-04-03 14:15] LABS: CREATININE 8.7 mg/dL (0.55-1.3); POTASSIUM > 10.0 mmol/L (3.5-5.1)
[2020-04-03] MEDS ORDERED: CALCIUM GLUCONATE 10% - 1,000 MG/10 ML VIAL IVPUSH ONE (14:25)
[2020-04-03] MEDS ORDERED: HEPARIN NA (PORCINE) 5,000 UNITS/ML 1ML VIAL ONE (16:11)
[2020-04-03] MEDS ORDERED: LIDOCAINE HCL 1%, 10 MG/ML (20ML VIAL) ONE (16:11)
[2020-04-03] MEDS ORDERED: PROPOFOL 20 ML ONE ×3 (16:54)
[2020-04-03] MEDS ORDERED: MIDAZOLAM HCL 2 MG/2 ML SINGLE DOSE VIAL ONE (16:55)
[2020-04-03] MEDS ORDERED: ceFAZolin SODIUM 1 GM VIAL IVPB ONE (17:27)
[2020-04-03] MEDS ORDERED: LIDOCAINE HCL 1%, 10 MG/ML (20ML VIAL) SQ ONE (17:32)
[2020-04-03] MEDS ORDERED: ceFAZolin SODIUM 1 GM VIAL ONE (17:33)
[2020-04-03] MEDS ORDERED: POVIDONE-IODINE OINTMENT 10% - 28.4 GM TUBE ONE (18:17)
[2020-04-03] MEDS ORDERED: POVIDONE-IODINE OINTMENT 10% - 28.4 GM TUBE TP ONE (18:20)
[2020-04-03] MEDS ORDERED: CLOPIDOGREL BISULFATE 75 MG TABLET (FP) PO SCH (18:30)
[2020-04-03] MEDS ORDERED: PROMETHAZINE HCL 25 MG/1 ML VIAL IVPUSH PRN (18:42)
[2020-04-03] MEDS ORDERED: ONDANSETRON 4 MG/2 ML VIAL IVPUSH PRN (18:42)
[2020-04-03] MEDS ORDERED: SODIUM CHLORIDE 1,000 ML IV SCH (18:45)
[2020-04-03 19:09] VITALS: BP 137/75; PULSE 72; TEMP 98.4
== END 2020-04-03 19:30 | disposition home or self-care (01) ==
LOC: JOR 11:29 → JASUSAT 16:22
PROVIDERS: ATTEND Surgery
PROC: 3E033GC Introduction of Other Therapeutic Substance into Peripheral Vein, Percutaneous Approach (ICD-10-PCS; principal; 2020-04-03 16:00)
PROC: 3E023GC Introduction of Other Therapeutic Substance into Muscle, Percutaneous Approach (ICD-10-PCS; principal; 2020-04-03 16:00)
DX: T82.598A Other mechanical complication of other cardiac and vascular devices and implants, initial encounter (principal)
CPT/HCPCS: 36415; 71045-TC-FY; 76000-TC-FY; 80053; 83735; 84100; 84132; 85025; 85610; 85730; 86850; 86900; 86901; 88304-TC; 93005; 93010; 99285-25; C9803; J1644; U0003

== ENCOUNTER 2020-05-05 13:07 | Inpatient (IN) | payer OTHER ==
[2020-05-05 15:12] LABS: BASO % 0.8 % (0-2.0); EOS % 10.5 % (0-4.5); HEMATOCRIT 38.9 % (32.4-45.2); LYMPH % 20.6 % (8-40); MCH 23.3 pg (25.7-33.7); MCHC 30.8 g/dl (32.0-36.0); MEAN CELL VOLUME 75.7 fl (80-96); MEAN PLT VOLUME 9.1 fl (7.5-11.1); MONO % 7.7 % (3.8-10.2); NEUT % 60.4 % (42.8-82.8); PLATELET COUNT 288 K/MM3 (134-434); RBC 5.13 M/mm3 (3.60-5.2); RDW 20.6 % (11.6-15.6); WHITE BLOOD COUNT 6.7 K/mm3 (4.0-10.0)
[2020-05-05 15:19] LABS: INR 0.94 (0.83-1.09); PROTHROMBIN TIME (PATIENT) 11.4 SEC (9.7-13.0)
[2020-05-05 15:31] LABS: ANISOCYTOSIS 3+; PLATELET ESTIMATE NORMAL
[2020-05-05 15:33] LABS: CHLORIDE 108 mmol/L (98-107); POTASSIUM 5.9 mmol/L (3.5-5.1); SODIUM 138 mmol/L (136-145)
[2020-05-05 15:36] LABS: ALBUMIN 3.7 g/dl (3.4-5.0); ANION GAP 12 MMOL/L (8-16); CO2 18 mmol/L (21-32); GLUCOSE,RANDOM 92 mg/dL (74-106)
[2020-05-05 15:39] LABS: SGOT/AST 9 U/L (15-37); SGPT/ALT 13 U/L (13-61)
[2020-05-05 15:40] LABS: BILIRUBIN,TOTAL 0.4 mg/dL (0.2-1)
[2020-05-05] MEDS ORDERED: CALCIUM GLUCONATE 10% - 1,000 MG/10 ML VIAL IVPUSH ONE (15:40)
[2020-05-05 15:41] LABS: TOT PROT 8.3 g/dl (6.4-8.2)
[2020-05-05] MEDS ORDERED: SODIUM ZIRCONIUM CYCLOSILICATE (LOKELMA) 5 GM PACKET PO ONE (15:41)
[2020-05-05] MEDS ORDERED: DEXTROSE 50%-WATER - 25 GM/50 ML VIAL IVPUSH ONE ×2 (15:41→22:10)
[2020-05-05 15:42] LABS: ALK PHOS 157 U/L (45-117)
[2020-05-05] MEDS ORDERED: INSULIN REGULAR HUMAN 100 UNITS/ML *VIAL IVPUSH ONE (15:42)
[2020-05-05 15:48] LABS: BLOOD UREA NITROGEN 105.6 mg/dL (7-18)
[2020-05-05 15:49] LABS: CREATININE 9.2 mg/dL (0.55-1.3)
[2020-05-05] MEDS ORDERED: LIDOCAINE HCL 1%, 10 MG/ML (20ML VIAL) ONE (16:25)
[2020-05-05] MEDS ORDERED: HEPARIN NA (PORCINE) 5,000 UNITS/ML 1ML VIAL ONE ×2 (16:25→19:06)
[2020-05-05] MEDS ORDERED: SODIUM ZIRCONIUM CYCLOSILICATE (LOKELMA) 5 GM PACKET ONE (16:56)
[2020-05-05] MEDS ORDERED: DEXTROSE 50%-WATER 25 GM/50 ML DISP.SYRIN ONE ×2 (16:56→21:33)
[2020-05-05] MEDS ORDERED: CALCIUM GLUC IN NACL, ISO-OSM 1 GM/50 ML BAG IVPB ONE (16:57)
[2020-05-05] MEDS ORDERED: INSULIN REGULAR HUMAN 100 UNITS/ML *VIAL ONE (16:58)
[2020-05-05] MEDS ORDERED: PROPOFOL 20 ML ONE ×3 (17:37→19:03)
[2020-05-05] MEDS ORDERED: SODIUM CHLORIDE 250 ML IV PRN ×2 (17:58→20:08)
[2020-05-05] MEDS ORDERED: ceFAZolin SODIUM 1 GM VIAL ONE ×3 (18:10→18:29)
[2020-05-05] MEDS ORDERED: ceFAZolin SODIUM 1 GM VIAL IVPB ONE (18:13)
[2020-05-05] MEDS ORDERED: LIDOCAINE HCL 1%, 10 MG/ML (20ML VIAL) INF ONE ×2 (18:16)
[2020-05-05] MEDS ORDERED: POVIDONE-IODINE OINTMENT 10% - 28.4 GM TUBE TP ONE (19:55)
[2020-05-05] MEDS ORDERED: oxyCODONE HCL 5 MG TABLET PO PRN (20:08)
[2020-05-05] MEDS: hydrALAZINE HCL 20 MG/ML VIAL IVPUSH PRN ×2 (20:13→21:30)
[2020-05-05] MEDS ORDERED: hydrALAZINE HCL 20 MG/ML VIAL ONE (20:13)
[2020-05-05] MEDS ORDERED: ONDANSETRON 4 MG/2 ML VIAL IVPUSH PRN (20:16)
[2020-05-05] MEDS ORDERED: ALBUTEROL SO4 0.083% IH SOL 2.5 MG/3 ML VIAL.NEB. NEB ONE ×3 (21:59→22:44)
[2020-05-05] MEDS ORDERED: PATIENT'S OWN MEDICATION (NON-FORMULARY) (Hydralazine Hcl [Hydralazine Hcl] 100 MG Tablet) PO SCH (22:00)
[2020-05-05] MEDS ORDERED: CEFAZOLIN 500 MG in DEXTROSE 5%-WATER - 50 ML IVPB SCH (22:00)
[2020-05-05 22:27] LABS: ARTERIAL BLD GAS O2 SATURATION 98.7 mmHg (95-98); ARTERIAL BLOOD GAS BASE EXCESS -13.5 mmol/L (-2-2); ARTERIAL BLOOD GAS PO2 156.9 mmHg (80-100)
[2020-05-05 22:28] LABS: ALLENS TEST POSITIVE
[2020-05-05 23:59] LABS: BASO % 0.8 % (0-2.0); HEMATOCRIT 37.5 % (32.4-45.2); HEMOGLOBIN 11.6 GM/dL (10.7-15.3); MCH 23.2 pg (25.7-33.7); MCHC 30.8 g/dl (32.0-36.0); MEAN CELL VOLUME 75.3 fl (80-96); MEAN PLT VOLUME 8.8 fl (7.5-11.1); MONO % 3.5 % (3.8-10.2); NEUT % 88.7 % (42.8-82.8); PLATELET COUNT 240 K/MM3 (134-434); RBC 4.98 M/mm3 (3.60-5.2); RDW 20.4 % (11.6-15.6); WHITE BLOOD COUNT 10.2 K/mm3 (4.0-10.0)
[2020-05-06] MEDS ORDERED: hydrALAZINE HCL 20 MG/ML VIAL IVPUSH ONE ×5 (00:10→11:50)
[2020-05-06 00:12] LABS: CHLORIDE 115 mmol/L (98-107); SODIUM 140 mmol/L (136-145)
[2020-05-06] MEDS: APIXABAN 5 MG TABLET PO SCH ×2 (00:12→09:39)
[2020-05-06] MEDS: CARVEDILOL 25 MG TABLET (FP) PO SCH ×2 (00:12→09:38)
[2020-05-06] MEDS: SODIUM BICARBONATE 650 MG TABLET PO SCH ×4 (00:12→23:00)
[2020-05-06] MEDS: hydrALAZINE HCL 50 MG TABLET (FP) PO SCH ×4 (00:12→14:45)
[2020-05-06] MEDS: ATORVASTATIN CA 10 MG TABLET (FP) PO SCH ×2 (00:12→23:00)
[2020-05-06] MEDS: BUDESONIDE/FORMETEROL FUMARATE 160/4.5 mcg INHALER IH SCH ×2 (00:12→09:40)
[2020-05-06 00:14] LABS: ALBUMIN 3.4 g/dl (3.4-5.0); CALCIUM 8.3 mg/dL (8.5-10.1); CO2 18 mmol/L (21-32); INR 0.97 (0.83-1.09); PROTHROMBIN TIME (PATIENT) 11.8 SEC (9.7-13.0)
[2020-05-06 00:15] LABS: GLUCOSE,RANDOM 114 mg/dL (74-106); MAGNESIUM 2.7 mg/dL (1.8-2.4)
[2020-05-06 00:17] LABS: PHOSPHOROUS 5.5 mg/dL (2.5-4.9)
[2020-05-06 00:18] LABS: ACTIVATED PTT 46.4 SECONDS (25.2-36.5)
[2020-05-06 00:19] LABS: BILIRUBIN,TOTAL 0.5 mg/dL (0.2-1); SGOT/AST 34 U/L (15-37); SGPT/ALT 16 U/L (13-61); TOT PROT 7.7 g/dl (6.4-8.2)
[2020-05-06 00:20] LABS: ALK PHOS 157 U/L (45-117)
[2020-05-06 00:32] LABS: ANION GAP 6 MMOL/L (8-16); BLOOD UREA NITROGEN 104.7 mg/dL (7-18); POTASSIUM 7.5 mmol/L (3.5-5.1)
[2020-05-06] MEDS ORDERED: FLUMAZENIL 0.5 MG/5 ML VIAL IVPUSH ONE (00:45)
[2020-05-06 01:18] LABS: ARTERIAL BLD GAS O2 SATURATION 96.9 mmHg (95-98); ARTERIAL BLOOD GAS BASE EXCESS -12.6 mmol/L (-2-2); ARTERIAL BLOOD GAS PO2 99.5 mmHg (80-100); ARTERIAL BLOOD GAS pH 7.281 (7.350-7.450)
[2020-05-06 01:19] LABS: ALLENS TEST POSITIVE
[2020-05-06 01:20] LABS: VENT MODE 2L
[2020-05-06 01:35] LABS: CHLORIDE 116 mmol/L (98-107); SODIUM 140 mmol/L (136-145)
[2020-05-06 01:36] LABS: CALCIUM 8.4 mg/dL (8.5-10.1); CO2 17 mmol/L (21-32)
[2020-05-06 01:37] LABS: GLUCOSE,RANDOM 112 mg/dL (74-106)
[2020-05-06 01:45] LABS: ANION GAP 7 MMOL/L (8-16); BLOOD UREA NITROGEN 106.8 mg/dL (7-18); POTASSIUM 7.2 mmol/L (3.5-5.1)
[2020-05-06] MEDS ORDERED: INSULIN REGULAR HUMAN 100 UNITS/ML *VIAL IVPUSH ONE (01:51)
[2020-05-06] MEDS ORDERED: CALCIUM GLUCONATE 10% - 1,000 MG/10 ML VIAL IVPUSH ONE (01:51)
[2020-05-06] MEDS ORDERED: DEXTROSE 50%-WATER - 25 GM/50 ML VIAL IVPUSH ONE (01:51)
[2020-05-06] MEDS ORDERED: ALBUTEROL SO4 0.042% IH SOL 1.25 MG/3 ML VIAL.NEB NEB ONE (01:54)
[2020-05-06] MEDS ORDERED: DEXTROSE 50%-WATER 25 GM/50 ML DISP.SYRIN ONE (02:00)
[2020-05-06] MEDS ORDERED: ALBUTEROL SO4 0.083% IH SOL 2.5 MG/3 ML VIAL.NEB. NEB ONE (02:05)
[2020-05-06] MEDS ORDERED: HEPARIN NA (PORCINE) 5,000 UNITS/ML 1ML VIAL IVPUSH PRN ×2 (02:10)
[2020-05-06] MEDS ORDERED: CALCIUM GLUCONATE IN NACL 1 GM/50 ML BAG IVPB ONE (02:15)
[2020-05-06] MEDS ORDERED: HEPARIN INFUSION - 25,000 UNITS/500 ML INFUS.BAG IVPB SCH (02:30)
[2020-05-06] MEDS ORDERED: ACETAMINOPHEN 1000 MG/100 ML VIAL (NON FORMULARY) IVPB ONE (03:45)
[2020-05-06 06:15] LABS: BASO % 0.4 % (0-2.0); EOS % 0.6 % (0-4.5); HEMATOCRIT 38.3 % (32.4-45.2); HEMOGLOBIN 11.9 GM/dL (10.7-15.3); LYMPH % 6.6 % (8-40); MCH 23.5 pg (25.7-33.7); MCHC 31.1 g/dl (32.0-36.0); MEAN CELL VOLUME 75.7 fl (80-96); MONO % 2.6 % (3.8-10.2); NEUT % 89.8 % (42.8-82.8); PLATELET COUNT 260 K/MM3 (134-434); RBC 5.06 M/mm3 (3.60-5.2); RDW 20.8 % (11.6-15.6); WHITE BLOOD COUNT 10.3 K/mm3 (4.0-10.0)
[2020-05-06] MEDS: CEFAZOLIN 500 MG in DEXTROSE 5%-WATER - 50 ML IVPB SCH ×2 (06:16→17:27)
[2020-05-06 07:42] LABS: CHLORIDE 112 mmol/L (98-107); SODIUM 137 mmol/L (136-145)
[2020-05-06 07:47] LABS: CALCIUM 9.1 mg/dL (8.5-10.1)
[2020-05-06 07:48] LABS: ALBUMIN 3.6 g/dl (3.4-5.0); CO2 14 mmol/L (21-32); GLUCOSE,RANDOM 76 mg/dL (74-106); MAGNESIUM 2.7 mg/dL (1.8-2.4)
[2020-05-06 07:51] LABS: PHOSPHOROUS 4.8 mg/dL (2.5-4.9); SGOT/AST 24 U/L (15-37); SGPT/ALT 15 U/L (13-61)
[2020-05-06 07:52] LABS: BILIRUBIN,TOTAL 0.4 mg/dL (0.2-1)
[2020-05-06] MEDS ORDERED: LORazepam 2 MG/ML SDV VIAL IVPUSH ONE (07:53)
[2020-05-06 07:54] LABS: ALK PHOS 156 U/L (45-117); ANION GAP 11 MMOL/L (8-16); CREATININE 9.1 mg/dL (0.55-1.3); POTASSIUM 6.6 mmol/L (3.5-5.1); TOT PROT 7.9 g/dl (6.4-8.2)
[2020-05-06] MEDS ORDERED: PROPOFOL 200 MG/20 ML VIAL IVPUSH ONE (08:05)
[2020-05-06] MEDS ORDERED: SUCCINYLCHOLINE CHLORIDE 200 MG/10 ML VIAL IVPUSH ONE (08:05)
[2020-05-06] MEDS ORDERED: FENTANYL IVPB 500 MCG/100 ML BAG IVPB ONE (08:20)
[2020-05-06] MEDS ORDERED: MIDAZOLAM IN 0.9 % SOD.CHLORID 1 MG/1 ML PLAST..BAG ONE (08:20)
[2020-05-06] MEDS: FENTANYL IVPB 500 MCG/100 ML BAG IVPB SCH (08:30)
[2020-05-06] MEDS ORDERED: MIDAZOLAM 100 MG in SODIUM CHLORIDE 100 ML IVPB SCH (09:15)
[2020-05-06] MEDS ORDERED: PANTOPRAZOLE 40 MG TABLET PO SCH (10:00)
[2020-05-06] MEDS ORDERED: amLODIPine BESYLATE 10 MG TABLET (FP) PO SCH (10:00)
[2020-05-06] MEDS ORDERED: PATIENT'S OWN MEDICATION (NON-FORMULARY) (Omeprazole [Omeprazole] 20 MG Tablet.Dr) PO SCH (10:00)
[2020-05-06] MEDS ORDERED: ISOSORBIDE MONONITRATE 30 MG TAB.SR.24H (FP) PO SCH (10:00)
[2020-05-06] MEDS: levETIRAcetam 500 MG/5 ML INJECTION VIAL IVPB SCH ×2 (11:05→23:00)
[2020-05-06] MEDS ORDERED: LABETALOL HCL 5 MG/1 ML (100MG/20 ML VIAL) IVPUSH ONE (12:00)
[2020-05-06] MEDS: PROPOFOL 1,000,000 MCG/100 ML VIAL IVPB SCH (12:53)
[2020-05-06] MEDS ORDERED: amLODIPine BESYLATE 10 MG TABLET (FP) GT ONE (13:06)
[2020-05-06] MEDS ORDERED: ISOSORBIDE DINITRATE 10 MG TABLET PO SCH (14:00)
[2020-05-06] MEDS: PANTOPRAZOLE SODIUM 40 MG VIAL IVPUSH SCH (14:28)
[2020-05-06] MEDS: ISOSORBIDE DINITRATE 10 MG TABLET GT SCH ×2 (14:43→17:29)
[2020-05-06 17:44] LABS: HEMATOCRIT 37.4 % (32.4-45.2); HEMOGLOBIN 11.7 GM/dL (10.7-15.3); MCH 23.1 pg (25.7-33.7); MCHC 31.3 g/dl (32.0-36.0); MEAN CELL VOLUME 73.8 fl (80-96); MEAN PLT VOLUME 8.3 fl (7.5-11.1); PLATELET COUNT 242 K/MM3 (134-434); RBC 5.07 M/mm3 (3.60-5.2); RDW 20.1 % (11.6-15.6)
[2020-05-06 17:56] LABS: POTASSIUM 4.6 mmol/L (3.5-5.1)
[2020-05-06 17:58] LABS: ALBUMIN 3.5 g/dl (3.4-5.0); CALCIUM 8.6 mg/dL (8.5-10.1)
[2020-05-06 17:59] LABS: MAGNESIUM 2.2 mg/dL (1.8-2.4)
[2020-05-06 18:02] LABS: PHOSPHOROUS 5.9 mg/dL (2.5-4.9)
[2020-05-06 18:03] LABS: BILIRUBIN,TOTAL 0.5 mg/dL (0.2-1); TOT PROT 7.9 g/dl (6.4-8.2)
[2020-05-06 18:07] LABS: BLOOD UREA NITROGEN 41.1 mg/dL (7-18)
[2020-05-06] MEDS ORDERED: PT OWN MED DRAWER 7, Y5N ONE (22:24)
[2020-05-06] MEDS: HEPARIN NA (PORCINE) 5,000 UNITS/ML 1ML VIAL SQ SCH (23:00)
[2020-05-07] MEDS: CARVEDILOL 25 MG TABLET (FP) PO SCH (00:06)
[2020-05-07] MEDS: hydrALAZINE HCL 50 MG TABLET (FP) PO SCH ×2 (00:06→06:11)
[2020-05-07] MEDS: BUDESONIDE/FORMETEROL FUMARATE 160/4.5 mcg INHALER IH SCH ×3 (00:07→21:47)
[2020-05-07 06:06] LABS: ARTERIAL BLD GAS O2 SATURATION 92.2 mmHg (95-98); ARTERIAL BLOOD GAS BASE EXCESS 0.5 mmol/L (-2-2); ARTERIAL BLOOD GAS PO2 70.2 mmHg (80-100); ARTERIAL BLOOD GAS pH 7.307 (7.350-7.450)
[2020-05-07 06:07] LABS: ALLENS TEST POSITIVE
[2020-05-07 06:08] LABS: VENT MODE A/C; VENT RATE 12
[2020-05-07] MEDS ORDERED: INSULIN (NOVOLOG) ASPART 100 UNITS/ML 10ML VIAL ONE (06:30)
[2020-05-07 07:33] LABS: POTASSIUM 4.9 mmol/L (3.5-5.1)
[2020-05-07] MEDS: HEPARIN NA (PORCINE) 5,000 UNITS/ML 1ML VIAL SQ SCH (07:34)
[2020-05-07] MEDS: SODIUM BICARBONATE 650 MG TABLET PO SCH (07:34)
[2020-05-07 07:42] LABS: ALBUMIN 3.5 g/dl (3.4-5.0); BLOOD UREA NITROGEN 50.3 mg/dL (7-18); CALCIUM 8.1 mg/dL (8.5-10.1); MAGNESIUM 2.4 mg/dL (1.8-2.4)
[2020-05-07 07:45] LABS: CREATININE 6.6 mg/dL (0.55-1.3); PHOSPHOROUS 8.8 mg/dL (2.5-4.9)
[2020-05-07 07:46] LABS: BILIRUBIN,TOTAL 0.8 mg/dL (0.2-1); TOT PROT 7.9 g/dl (6.4-8.2)
[2020-05-07] MEDS: ISOSORBIDE DINITRATE 10 MG TABLET GT SCH (07:48)
[2020-05-07] MEDS ORDERED: SODIUM CHLORIDE 250 ML IV PRN (07:53)
[2020-05-07] MEDS: PANTOPRAZOLE SODIUM 40 MG VIAL IVPUSH SCH (09:07)
[2020-05-07] MEDS: levETIRAcetam 500 MG/5 ML INJECTION VIAL IVPB SCH (09:07)
[2020-05-07] MEDS ORDERED: hydrALAZINE HCL 25 MG TABLET (FP) PO SCH (10:30)
[2020-05-07] MEDS ORDERED: APIXABAN 5 MG TABLET GT SCH (10:45)
[2020-05-07] MEDS ORDERED: oxyCODONE HCL 5 MG TABLET GT PRN (10:47)
[2020-05-07] MEDS ORDERED: SODIUM BICARBONATE 650 MG TABLET GT SCH (10:48)
[2020-05-07] MEDS: FENTANYL IVPB 500 MCG/100 ML BAG IVPB SCH (11:34)
[2020-05-07] MEDS ORDERED: hydrALAZINE HCL 50 MG TABLET (FP) GT SCH ×2 (11:45→14:00)
[2020-05-07 12:35] VITALS: BMI 23.6
[2020-05-07] MEDS: DEXMEDETOMIDINE IN 0.9 % NACL 400 MCG/100 ML VIAL IVPB SCH (12:51)
[2020-05-07] MEDS: PROPOFOL 1,000,000 MCG/100 ML VIAL IVPB SCH (12:53)
[2020-05-07] MEDS: APIXABAN 5 MG TABLET GT SCH (21:47)
[2020-05-07] MEDS: ATORVASTATIN CA 10 MG TABLET (FP) PO SCH (21:47)
[2020-05-08] MEDS ORDERED: FENTANYL NS IVPB 500 MCG/100 ML BAG IVPB ONE (01:27)
[2020-05-08 07:14] LABS: HEMATOCRIT 35.2 % (32.4-45.2); HEMOGLOBIN 11.3 GM/dL (10.7-15.3); MCH 23.6 pg (25.7-33.7); MEAN CELL VOLUME 73.7 fl (80-96); MEAN PLT VOLUME 8.5 fl (7.5-11.1); PLATELET COUNT 177 K/MM3 (134-434); RBC 4.78 M/mm3 (3.60-5.2); RDW 19.4 % (11.6-15.6); WHITE BLOOD COUNT 8.9 K/mm3 (4.0-10.0)
[2020-05-08 07:35] LABS: POTASSIUM 4.2 mmol/L (3.5-5.1)
[2020-05-08 07:40] LABS: CALCIUM 7.9 mg/dL (8.5-10.1)
[2020-05-08 07:41] LABS: BLOOD UREA NITROGEN 32.8 mg/dL (7-18)
[2020-05-08 07:44] LABS: CREATININE 5.2 mg/dL (0.55-1.3)
[2020-05-08 07:45] LABS: BILIRUBIN,TOTAL 0.6 mg/dL (0.2-1)
[2020-05-08 07:46] LABS: TOT PROT 7.1 g/dl (6.4-8.2)
[2020-05-08] MEDS: FENTANYL IVPB 500 MCG/100 ML BAG IVPB SCH (09:48)
[2020-05-08] MEDS: BUDESONIDE/FORMETEROL FUMARATE 160/4.5 mcg INHALER IH SCH ×2 (10:05→21:19)
[2020-05-08] MEDS: APIXABAN 5 MG TABLET GT SCH ×2 (10:41→21:18)
[2020-05-08] MEDS: PANTOPRAZOLE SODIUM 40 MG VIAL IVPUSH SCH (10:41)
[2020-05-08] MEDS: DEXMEDETOMIDINE IN 0.9 % NACL 400 MCG/100 ML VIAL IVPB SCH (10:44)
[2020-05-08] MEDS: PROPOFOL 1,000,000 MCG/100 ML VIAL IVPB SCH (13:35)
[2020-05-08] MEDS: ISOSORBIDE MONONITRATE 30 MG TAB.SR.24H (FP) PO SCH (13:39)
[2020-05-08] MEDS: amLODIPine BESYLATE 10 MG TABLET (FP) PO SCH (13:39)
[2020-05-08] MEDS ORDERED: SODIUM CHLORIDE 250 ML IV PRN (17:26)
[2020-05-08] MEDS: levETIRAcetam 500 MG/5 ML INJECTION VIAL IVPB SCH (21:18)
[2020-05-08] MEDS: ATORVASTATIN CA 10 MG TABLET (FP) PO SCH (21:19)
[2020-05-08] MEDS ORDERED: levETIRAcetam 250 MG TABLET PO SCH (22:00)
[2020-05-09 06:52] LABS: HEMATOCRIT 35.4 % (32.4-45.2); HEMOGLOBIN 11.1 GM/dL (10.7-15.3); MCH 23.1 pg (25.7-33.7); MCHC 31.3 g/dl (32.0-36.0); MEAN CELL VOLUME 73.9 fl (80-96); MEAN PLT VOLUME 9.5 fl (7.5-11.1); PLATELET COUNT 196 K/MM3 (134-434); RDW 18.5 % (11.6-15.6); WHITE BLOOD COUNT 11.5 K/mm3 (4.0-10.0)
[2020-05-09 07:17] LABS: ALBUMIN 2.9 g/dl (3.4-5.0); MAGNESIUM 2.3 mg/dL (1.8-2.4)
[2020-05-09 07:20] LABS: CREATININE 6.7 mg/dL (0.55-1.3)
[2020-05-09 07:21] LABS: PHOSPHOROUS 7.9 mg/dL (2.5-4.9)
[2020-05-09 07:22] LABS: BILIRUBIN,TOTAL 0.5 mg/dL (0.2-1); TOT PROT 7.1 g/dl (6.4-8.2)
[2020-05-09 08:00] VITALS: TEMP 98.6
[2020-05-09] MEDS: PANTOPRAZOLE SODIUM 40 MG VIAL IVPUSH SCH (09:57)
[2020-05-09] MEDS: amLODIPine BESYLATE 10 MG TABLET (FP) PO SCH (09:57)
[2020-05-09] MEDS: BUDESONIDE/FORMETEROL FUMARATE 160/4.5 mcg INHALER IH SCH (09:57)
[2020-05-09] MEDS: levETIRAcetam 500 MG/5 ML INJECTION VIAL IVPB SCH (09:57)
[2020-05-09] MEDS: APIXABAN 5 MG TABLET GT SCH (09:57)
[2020-05-09] MEDS: ISOSORBIDE MONONITRATE 30 MG TAB.SR.24H (FP) PO SCH (09:57)
[2020-05-09] MEDS: DEXMEDETOMIDINE IN 0.9 % NACL 400 MCG/100 ML VIAL IVPB SCH (11:11)
[2020-05-09] MEDS: FENTANYL IVPB 500 MCG/100 ML BAG IVPB SCH (11:11)
[2020-05-09 11:14] VITALS: BP 123/74; PULSE 94
== END 2020-05-09 14:00 | disposition short-term general hospital (02) | DRG 182 ==
LOC: JER 13:07 → JERBED 18:33 → JICU 23:55
PROVIDERS: ADMIT Internal Medicine; ATTEND Internal Medicine Pulmonary Disease
PROC: 05C83ZZ Extirpation of Matter from Left Axillary Vein, Percutaneous Approach (ICD-10-PCS; principal; 2020-05-05 16:00)
PROC: 03C80ZZ Extirpation of Matter from Left Brachial Artery, Open Approach (ICD-10-PCS; 2020-05-05 16:00)
PROC: 5A1945Z Respiratory Ventilation, 24-96 Consecutive Hours (ICD-10-PCS; 2020-05-06)
PROC: 0BH17EZ Insertion of Endotracheal Airway into Trachea, Via Natural or Artificial Opening (ICD-10-PCS; 2020-05-06)
PROC: 5A1D70Z Performance of Urinary Filtration, Intermittent, Less than 6 Hours Per Day (ICD-10-PCS; 2020-05-09)
DX: T82.818A Embolism due to vascular prosthetic devices, implants and grafts, initial encounter (principal); N18.6 End stage renal disease; Z99.2 Dependence on renal dialysis; I13.2 Hypertensive heart and chronic kidney disease with heart failure and with stage 5 chronic kidney disease, or end stage renal disease; E87.5 Hyperkalemia; E87.2 Acidosis; I50.20 Unspecified systolic (congestive) heart failure; G97.82 Other postprocedural complications and disorders of nervous system; J95.821 Acute postprocedural respiratory failure; G93.41 Metabolic encephalopathy; Y83.9 Surgical procedure, unspecified as the cause of abnormal reaction of the patient, or of later complication, without mention of misadventure at the time of the procedure; R41.82 Altered mental status, unspecified
CPT/HCPCS: 31500; 36415; 36600; 70450-TC; 70496-TC; 70498-TC; 71045-TC-FY; 76937; 80048; 80053; 82140; 82550; 82803; 82962; 83605; 83735; 84100; 84146; 84484; 85025; 85027; 85610; 85730; 86803; 86850; 86900; 86901; 87040; 87340; 88304-TC; 93005; 93010; 93930; 93971; 94002; 94640; 94760; 95816; 99285-25; C9803; J0131; J1644; Q9967; U0003

== ENCOUNTER 2020-08-31 11:46 | Inpatient (IN) | payer OTHER ==
[2020-08-31 13:19] LABS: BASO % 0.6 % (0-2.0); EOS % 0.3 % (0-4.5); HEMATOCRIT 37.2 % (32.4-45.2); HEMOGLOBIN 11.7 GM/dL (10.7-15.3); LYMPH % 10.5 % (8-40); MCH 24.7 pg (25.7-33.7); MCHC 31.3 g/dl (32.0-36.0); MEAN CELL VOLUME 78.8 fl (80-96); MEAN PLT VOLUME 9.5 fl (7.5-11.1); MONO % 4.2 % (3.8-10.2); NEUT % 84.4 % (42.8-82.8); PLATELET COUNT 253 10^3/uL (134-434); RBC 4.72 M/mm3 (3.60-5.2); RDW 16.3 % (11.6-15.6); WHITE BLOOD COUNT 9.4 K/mm3 (4.0-10.0)
[2020-08-31 13:33] LABS: INR 0.98 (0.83-1.09); PROTHROMBIN TIME (PATIENT) 11.9 SEC (9.7-13.0)
[2020-08-31 13:35] LABS: ACTIVATED PTT 21.7 SECONDS (25.2-36.5)
[2020-08-31 13:45] LABS: CHLORIDE 110 mmol/L (98-107); SODIUM 139 mmol/L (136-145)
[2020-08-31 13:47] LABS: BLOOD UREA NITROGEN 83.8 mg/dL (7-18); CALCIUM 8.7 mg/dL (8.5-10.1); CO2 22 mmol/L (21-32); GLUCOSE,RANDOM 108 mg/dL (74-106)
[2020-08-31 13:48] LABS: MAGNESIUM 2.7 mg/dL (1.8-2.4)
[2020-08-31 13:50] LABS: PHOSPHOROUS 2.5 mg/dL (2.5-4.9)
[2020-08-31 13:51] LABS: SGOT/AST 139 U/L (15-37)
[2020-08-31 13:52] LABS: BILIRUBIN,TOTAL 0.4 mg/dL (0.2-1); TOT PROT 7.7 g/dl (6.4-8.2)
[2020-08-31 13:53] LABS: ALK PHOS 151 U/L (45-117)
[2020-08-31 14:03] LABS: ANION GAP 8 MMOL/L (8-16); CREATININE 7.6 mg/dL (0.55-1.3); SGPT/ALT 43 U/L (13-61)
[2020-08-31 14:11] LABS: N-TERMINAL BNP 106487.2 pg/ml (5-125)
[2020-08-31] MEDS ORDERED: FUROSEMIDE 40 MG/4 ML INJECTABLE VIAL IVPUSH ONE ×2 (14:16→17:41)
[2020-08-31] MEDS ORDERED: FUROSEMIDE 40 MG/4 ML INJECTABLE VIAL ONE (14:19)
[2020-08-31 15:26] LABS: CHLORIDE 111 mmol/L (98-107); SODIUM 144 mmol/L (136-145)
[2020-08-31 15:28] LABS: CALCIUM 8.7 mg/dL (8.5-10.1)
[2020-08-31 15:29] LABS: ALBUMIN 3.1 g/dl (3.4-5.0); ANION GAP 9 MMOL/L (8-16); BLOOD UREA NITROGEN 83.1 mg/dL (7-18); CO2 23 mmol/L (21-32); GLUCOSE,RANDOM 105 mg/dL (74-106)
[2020-08-31 15:32] LABS: SGOT/AST 15 U/L (15-37); SGPT/ALT 32 U/L (13-61)
[2020-08-31 15:33] LABS: BILIRUBIN,TOTAL 0.5 mg/dL (0.2-1)
[2020-08-31 15:35] LABS: ALK PHOS 153 U/L (45-117)
[2020-08-31 15:39] LABS: CREATININE 7.5 mg/dL (0.55-1.3)
[2020-08-31 16:05] LABS: CHLORIDE 111 mmol/L (98-107); SODIUM 144 mmol/L (136-145)
[2020-08-31] MEDS ORDERED: SODIUM CHLORIDE 250 ML IV PRN (16:05)
[2020-08-31 16:07] LABS: ANION GAP 9 MMOL/L (8-16); BLOOD UREA NITROGEN 81.4 mg/dL (7-18); CALCIUM 8.9 mg/dL (8.5-10.1); CO2 24 mmol/L (21-32); GLUCOSE,RANDOM 100 mg/dL (74-106)
[2020-08-31 16:12] LABS: CREATININE 7.7 mg/dL (0.55-1.3)
[2020-08-31] MEDS ORDERED: HEPARIN NA (PORCINE) 5,000 UNITS/ML 1ML VIAL IVPUSH ONE (16:15)
[2020-08-31] MEDS: HEPARIN NA (PORCINE) 5,000 UNITS/ML 1ML VIAL IVPUSH SCH ×3 (16:20→18:00)
[2020-08-31] MEDS: SEVELAMER CARBONATE 800 MG TAB (FP) PO SCH (20:05)
[2020-08-31] MEDS ORDERED: ATORVASTATIN CA 20 MG TABLET (FP) ONE (22:21)
[2020-08-31] MEDS ORDERED: HEPARIN NA (PORCINE) 5,000 UNITS/ML 1ML VIAL ONE (22:22)
[2020-08-31] MEDS: ATORVASTATIN CA 20 MG TABLET (FP) PO SCH (22:23)
[2020-08-31] MEDS: BUDESONIDE/FORMETEROL FUMARATE 160/4.5 mcg INHALER IH SCH (22:23)
[2020-08-31] MEDS: HEPARIN NA (PORCINE) 5,000 UNITS/ML 1ML VIAL SQ SCH (22:23)
[2020-09-01 02:37] VITALS: BMI 22.4
[2020-09-01] MEDS ORDERED: FUROSEMIDE 40 MG/4 ML INJECTABLE VIAL IVPUSH ONE ×2 (03:20→14:07)
[2020-09-01] MEDS: SEVELAMER CARBONATE 800 MG TAB (FP) PO SCH ×3 (06:26→16:52)
[2020-09-01] MEDS: HEPARIN NA (PORCINE) 5,000 UNITS/ML 1ML VIAL SQ SCH ×3 (06:26→21:31)
[2020-09-01 07:09] LABS: BASO % 0.4 % (0-2.0); EOS % 2.6 % (0-4.5); HEMATOCRIT 38.4 % (32.4-45.2); HEMOGLOBIN 12.3 GM/dL (10.7-15.3); LYMPH % 13.6 % (8-40); MCHC 32.1 g/dl (32.0-36.0); MEAN CELL VOLUME 77.7 fl (80-96); MEAN PLT VOLUME 8.9 fl (7.5-11.1); MONO % 6.9 % (3.8-10.2); NEUT % 76.5 % (42.8-82.8); PLATELET COUNT 224 10^3/uL (134-434); RBC 4.94 M/mm3 (3.60-5.2); RDW 15.6 % (11.6-15.6); WHITE BLOOD COUNT 10.5 K/mm3 (4.0-10.0)
[2020-09-01 07:31] LABS: CALCIUM 8.8 mg/dL (8.5-10.1)
[2020-09-01 07:32] LABS: ALBUMIN 3.4 g/dl (3.4-5.0); MAGNESIUM 2.1 mg/dL (1.8-2.4)
[2020-09-01 07:35] LABS: CREATININE 5.3 mg/dL (0.55-1.3); PHOSPHOROUS 2.1 mg/dL (2.5-4.9)
[2020-09-01 07:37] LABS: TOT PROT 7.6 g/dl (6.4-8.2)
[2020-09-01 07:38] LABS: BLOOD UREA NITROGEN 46.4 mg/dL (7-18)
[2020-09-01] MEDS: ASPIRIN 81 MG CHEWABLE TABLETS PO SCH (09:03)
[2020-09-01] MEDS: BUDESONIDE/FORMETEROL FUMARATE 160/4.5 mcg INHALER IH SCH ×3 (09:03→21:34)
[2020-09-01] MEDS: VITAMIN B COMP W-C 1 EA TABLET (NEPHRO-VITE) PO SCH (09:03)
[2020-09-01] MEDS ORDERED: dilTIAZem HCL 50 MG/10 ML - 10 ML VIAL IVPUSH PRN (10:07)
[2020-09-01] MEDS ORDERED: NAPH,MB-DB/K PH,MBDB POWDER PACKET PO SCH ×2 (14:00→16:35)
[2020-09-01] MEDS ORDERED: SODIUM CHLORIDE 250 ML IV PRN (14:08)
[2020-09-01] MEDS ORDERED: POTASSIUM PHOSPHATE 30 MM in SODIUM CHLORIDE 250 ML IVPB ONE (19:20)
[2020-09-01] MEDS: ATORVASTATIN CA 20 MG TABLET (FP) PO SCH (21:31)
[2020-09-01] MEDS ORDERED: ACETAMINOPHEN 325 MG TABLET (FP) PO ONE (21:50)
[2020-09-02] MEDS: HEPARIN NA (PORCINE) 5,000 UNITS/ML 1ML VIAL SQ SCH ×3 (05:41→21:35)
[2020-09-02] MEDS: SEVELAMER CARBONATE 800 MG TAB (FP) PO SCH ×4 (06:02→17:06)
[2020-09-02 08:09] LABS: BASO % 0.4 % (0-2.0); EOS % 4.4 % (0-4.5); HEMATOCRIT 38.4 % (32.4-45.2); LYMPH % 21.3 % (8-40); MCH 24.5 pg (25.7-33.7); MCHC 31.4 g/dl (32.0-36.0); MEAN CELL VOLUME 78.1 fl (80-96); MEAN PLT VOLUME 9.2 fl (7.5-11.1); MONO % 8.2 % (3.8-10.2); NEUT % 65.7 % (42.8-82.8); PLATELET COUNT 207 10^3/uL (134-434); RBC 4.91 M/mm3 (3.60-5.2); WHITE BLOOD COUNT 7.1 K/mm3 (4.0-10.0)
[2020-09-02 08:34] LABS: ALBUMIN 3.1 g/dl (3.4-5.0); CALCIUM 7.8 mg/dL (8.5-10.1); MAGNESIUM 2.4 mg/dL (1.8-2.4)
[2020-09-02 08:37] LABS: PHOSPHOROUS 5.8 mg/dL (2.5-4.9)
[2020-09-02 08:39] LABS: TOT PROT 7.1 g/dl (6.4-8.2)
[2020-09-02 08:43] LABS: BILIRUBIN,TOTAL 0.7 mg/dL (0.2-1)
[2020-09-02 08:45] LABS: BLOOD UREA NITROGEN 71.8 mg/dL (7-18)
[2020-09-02] MEDS: BUDESONIDE/FORMETEROL FUMARATE 160/4.5 mcg INHALER IH SCH ×2 (09:15→21:20)
[2020-09-02] MEDS ORDERED: NAPH,MB-DB/K PH,MBDB POWDER PACKET PO SCH (10:00)
[2020-09-02] MEDS: ALBUMIN HUMAN 25% 12.5 GM/50 ML VIAL IVPB SCH ×3 (13:26→14:01)
[2020-09-02 14:10] LABS: HEP B CORE AB, TOT Positive (Negative)
[2020-09-02] MEDS: CARVEDILOL 6.25 MG TABLET (FP) PO SCH ×2 (15:16→21:20)
[2020-09-02] MEDS: VITAMIN B COMP W-C 1 EA TABLET (NEPHRO-VITE) PO SCH (15:17)
[2020-09-02] MEDS: ASPIRIN 81 MG CHEWABLE TABLETS PO SCH (15:17)
[2020-09-02] MEDS: ATORVASTATIN CA 20 MG TABLET (FP) PO SCH (21:19)
[2020-09-02] MEDS: PANTOPRAZOLE 40 MG TABLET PO SCH (21:20)
[2020-09-03] MEDS: HEPARIN NA (PORCINE) 5,000 UNITS/ML 1ML VIAL SQ SCH ×2 (06:02→14:51)
[2020-09-03 07:00] LABS: BASO % 0.4 % (0-2.0); EOS % 4.9 % (0-4.5); HEMATOCRIT 36.5 % (32.4-45.2); HEMOGLOBIN 11.8 GM/dL (10.7-15.3); LYMPH % 20.9 % (8-40); MCH 25.1 pg (25.7-33.7); MCHC 32.2 g/dl (32.0-36.0); MEAN CELL VOLUME 77.8 fl (80-96); MEAN PLT VOLUME 9.1 fl (7.5-11.1); MONO % 10.1 % (3.8-10.2); NEUT % 63.7 % (42.8-82.8); PLATELET COUNT 194 10^3/uL (134-434); RDW 15.6 % (11.6-15.6); WHITE BLOOD COUNT 8.4 K/mm3 (4.0-10.0)
[2020-09-03 07:25] LABS: CALCIUM 7.6 mg/dL (8.5-10.1)
[2020-09-03 07:26] LABS: ALBUMIN 2.9 g/dl (3.4-5.0); BLOOD UREA NITROGEN 50.8 mg/dL (7-18); MAGNESIUM 2.2 mg/dL (1.8-2.4)
[2020-09-03 07:29] LABS: CREATININE 5.5 mg/dL (0.55-1.3)
[2020-09-03 07:30] LABS: BILIRUBIN,TOTAL 0.5 mg/dL (0.2-1); PHOSPHOROUS 3.7 mg/dL (2.5-4.9); TOT PROT 6.9 g/dl (6.4-8.2)
[2020-09-03] MEDS: ASPIRIN 81 MG CHEWABLE TABLETS PO SCH (09:50)
[2020-09-03] MEDS: PANTOPRAZOLE 40 MG TABLET PO SCH (09:51)
[2020-09-03] MEDS: CARVEDILOL 6.25 MG TABLET (FP) PO SCH (09:51)
[2020-09-03] MEDS: BUDESONIDE/FORMETEROL FUMARATE 160/4.5 mcg INHALER IH SCH (09:51)
[2020-09-03] MEDS: SEVELAMER CARBONATE 800 MG TAB (FP) PO SCH ×2 (09:51→12:49)
[2020-09-03] MEDS: VITAMIN B COMP W-C 1 EA TABLET (NEPHRO-VITE) PO SCH (09:51)
[2020-09-03] MEDS ORDERED: SACUBITRIL/VALSARTAN 24 MG-26 MG TABLET PO SCH (13:30)
[2020-09-03 14:12] VITALS: BP 154/96; PULSE 80; TEMP 98.4
== END 2020-09-03 17:08 | disposition home or self-care (01) | DRG 194 ==
LOC: JER 11:46 → JERBED 15:28 → OBSVTOIN 17:39 → J4S 23:04
PROVIDERS: ATTEND Internal Medicine
PROC: 5A1D70Z Performance of Urinary Filtration, Intermittent, Less than 6 Hours Per Day (ICD-10-PCS; principal; 2020-08-31)
DX: I13.2 Hypertensive heart and chronic kidney disease with heart failure and with stage 5 chronic kidney disease, or end stage renal disease (principal); J44.9 Chronic obstructive pulmonary disease, unspecified; E78.00 Pure hypercholesterolemia, unspecified; N18.6 End stage renal disease; I50.43 Acute on chronic combined systolic (congestive) and diastolic (congestive) heart failure; I24.8 Other forms of acute ischemic heart disease; I47.1 Supraventricular tachycardia; E46 Unspecified protein-calorie malnutrition; E87.70 Fluid overload, unspecified; E78.5 Hyperlipidemia, unspecified; E87.5 Hyperkalemia; R41.0 Disorientation, unspecified; Z99.2 Dependence on renal dialysis; Z68.22 Body mass index [BMI] 22.0-22.9, adult
CPT/HCPCS: 36415; 71045-TC-FY; 80048; 80053; 83735; 83880; 84100; 84484; 85025; 85610; 85730; 86704; 86706; 86707; 86708; 86709; 86803; 87340; 93005; 93010; 93306-TC; 99285-25; C9803; G0378; J1644; U0003; U0005

== ENCOUNTER 2021-01-02 07:14 | Inpatient (IN) | payer OTHER ==
[2021-01-02 07:39] VITALS: BMI 21.7
[2021-01-02 10:30] LABS: BASO % 0.6 % (0-2.0); EOS % 7.3 % (0-4.5); HEMATOCRIT 33.5 % (32.4-45.2); HEMOGLOBIN 10.7 GM/dL (10.7-15.3); LYMPH % 31.3 % (8-40); MCHC 31.9 g/dl (32.0-36.0); MEAN CELL VOLUME 81.5 fl (80-96); MEAN PLT VOLUME 9.1 fl (7.5-11.1); MONO % 8.9 % (3.8-10.2); NEUT % 51.9 % (42.8-82.8); PLATELET COUNT 207 10^3/uL (134-434); RDW 16.6 % (11.6-15.6); WHITE BLOOD COUNT 6.8 K/mm3 (4.0-10.0)
[2021-01-02] MEDS ORDERED: ONDANSETRON 4 MG/2 ML VIAL IVPUSH PRN (10:43)
[2021-01-02 10:45] LABS: PROTHROMBIN TIME (PATIENT) 11.2 SEC (9.7-13.0)
[2021-01-02] MEDS ORDERED: SODIUM CHLORIDE 1,000 ML IV SCH (10:45)
[2021-01-02 10:48] LABS: ACTIVATED PTT 26.5 SECONDS (25.2-36.5)
[2021-01-02] MEDS ORDERED: MIDAZOLAM HCL 2 MG/2 ML SINGLE DOSE VIAL ONE (10:48)
[2021-01-02] MEDS ORDERED: PROPOFOL 20 ML ONE ×3 (10:49)
[2021-01-02] MEDS ORDERED: LIDOCAINE HCL/PF 2% SDV 5ML VIAL ONE (10:49)
[2021-01-02] MEDS ORDERED: SUCCINYLCHOLINE CHLORIDE 200 MG/10 ML SYRINGE ONE (10:49)
[2021-01-02 10:52] LABS: CHLORIDE 105 mmol/L (98-107); SODIUM 140 mmol/L (136-145)
[2021-01-02 10:53] LABS: CALCIUM 8.8 mg/dL (8.5-10.1)
[2021-01-02 10:54] LABS: ANION GAP 10 MMOL/L (8-16); CO2 25 mmol/L (21-32); GLUCOSE,RANDOM 81 mg/dL (74-106); MAGNESIUM 2.6 mg/dL (1.8-2.4)
[2021-01-02 10:57] LABS: PHOSPHOROUS 4.5 mg/dL (2.5-4.9); SGOT/AST 41 U/L (15-37); SGPT/ALT 58 U/L (13-61)
[2021-01-02 10:58] LABS: BILIRUBIN,TOTAL 0.4 mg/dL (0.2-1); TOT PROT 7.2 g/dl (6.4-8.2)
[2021-01-02 11:00] LABS: ALK PHOS 131 U/L (45-117)
[2021-01-02] MEDS ORDERED: HEPARIN NA (PORCINE) 5,000 UNITS/ML 1ML VIAL ONE ×2 (11:29→12:34)
[2021-01-02] MEDS ORDERED: CLINDAMYCIN 600 MG PREMIX BAG IVPB ONE (11:30)
[2021-01-02] MEDS ORDERED: ALTEPLASE (CATHFLO) 2 MG/2 ML VIAL CVP ONE (11:30)
[2021-01-02] MEDS ORDERED: methylPREDNISolone NA SUCC 125 MG/2 ML VIAL ONE ×2 (11:32→11:37)
[2021-01-02] MEDS ORDERED: HEPARIN NA (PORCINE) 5,000 UNITS/ML 1ML VIAL SQ ONE (11:40)
[2021-01-02] MEDS ORDERED: ALTEPLASE (CATHFLO) 2 MG/2 ML VIAL NR ONE (11:45)
[2021-01-02] MEDS ORDERED: PHENYLEPHRINE HCL 10 MG/1 ML SINGLE DOSE VIAL ONE (12:00)
[2021-01-02] MEDS ORDERED: ePHEDrine SULFATE 50 MG/1 ML AMPULE ONE (12:26)
[2021-01-02] MEDS ORDERED: SODIUM CHLORIDE 0.9% P/F 10 ML VIAL IJ ONE (12:34)
[2021-01-02] MEDS ORDERED: HEPARIN NA (PORCINE) 5,000 UNITS/ML 1ML VIAL IVPUSH ONE (14:23)
[2021-01-02] MEDS ORDERED: SODIUM CHLORIDE 250 ML IV PRN (14:23)
[2021-01-02] MEDS: HEPARIN NA (PORCINE) 5,000 UNITS/ML 1ML VIAL IVPUSH SCH ×3 (14:45→16:25)
[2021-01-02 18:16] VITALS: BP 134/82; PULSE 84; TEMP 97.9
== END 2021-01-02 19:37 | disposition home or self-care (01) | DRG 252 ==
LOC: JER 07:14 → JASUSAT 12:13 → J5S 12:14 → JASUSAT 12:19
PROVIDERS: ADMIT Surgery; ATTEND Internal Medicine
PROC: B50MYZZ Plain Radiography of Right Upper Extremity Veins using Other Contrast (ICD-10-PCS; 2021-01-02)
PROC: 3E05317 Introduction of Other Thrombolytic into Peripheral Artery, Percutaneous Approach (ICD-10-PCS; 2021-01-02)
PROC: 03CY3ZZ Extirpation of Matter from Upper Artery, Percutaneous Approach (ICD-10-PCS; principal; 2021-01-02 10:30)
DX: T82.868A Thrombosis due to vascular prosthetic devices, implants and grafts, initial encounter (principal); N18.6 End stage renal disease; I13.2 Hypertensive heart and chronic kidney disease with heart failure and with stage 5 chronic kidney disease, or end stage renal disease; I50.22 Chronic systolic (congestive) heart failure; R64 Cachexia; Y83.8 Other surgical procedures as the cause of abnormal reaction of the patient, or of later complication, without mention of misadventure at the time of the procedure; Z99.2 Dependence on renal dialysis; J44.9 Chronic obstructive pulmonary disease, unspecified; Z88.0 Allergy status to penicillin; Z68.21 Body mass index [BMI] 21.0-21.9, adult; D64.9 Anemia, unspecified
CPT/HCPCS: 36415; 71045-TC-FY; 76000-TC-FY; 80053; 83735; 84100; 85025; 85610; 85730; 86803; 86850; 86900; 86901; 87340; 87522; 93005; 93010; 94760; 99285-25; C9803; J1644; J2997; U0003; U0005

== ENCOUNTER 2021-02-22 16:30 | Observation (INO) | payer OTHER ==
[2021-02-22 16:37] VITALS: BMI 22.2
[2021-02-22 22:50] LABS: BASO % 0.6 % (0-2.0); EOS % 8.2 % (0-4.5); HEMATOCRIT 37.5 % (32.4-45.2); HEMOGLOBIN 11.6 GM/dL (10.7-15.3); LYMPH % 28.7 % (8-40); MCH 25.3 pg (25.7-33.7); MCHC 30.8 g/dl (32.0-36.0); MONO % 6.1 % (3.8-10.2); NEUT % 56.4 % (42.8-82.8); PLATELET COUNT 159 10^3/uL (134-434); RBC 4.58 M/mm3 (3.60-5.2); RDW 13.6 % (11.6-15.6); WHITE BLOOD COUNT 6.5 K/mm3 (4.0-10.0)
[2021-02-23 00:22] LABS: CHLORIDE 101 mmol/L (98-107); SODIUM 141 mmol/L (136-145)
[2021-02-23 00:24] LABS: ALBUMIN 3.1 g/dl (3.4-5.0); ANION GAP 15 MMOL/L (8-16); BLOOD UREA NITROGEN 56.1 mg/dL (7-18); CALCIUM 8.7 mg/dL (8.5-10.1); CO2 26 mmol/L (21-32); GLUCOSE,RANDOM 97 mg/dL (74-106); MAGNESIUM 2.4 mg/dL (1.8-2.4)
[2021-02-23 00:27] LABS: SGOT/AST 24 U/L (15-37); SGPT/ALT 24 U/L (13-61)
[2021-02-23 00:29] LABS: BILIRUBIN,TOTAL 0.5 mg/dL (0.2-1); TOT PROT 7.7 g/dl (6.4-8.2)
[2021-02-23 00:30] LABS: ALK PHOS 135 U/L (45-117)
[2021-02-23 01:11] LABS: CREATININE 13.4 mg/dL (0.55-1.3)
[2021-02-23] MEDS ORDERED: NICOTINE 7 MG/24 HOURS TOPICAL PATCH TD PRN (03:59)
[2021-02-23] MEDS ORDERED: MAG HYDROX/AL HYDROX/SIMETH -MYLANTA- ORAL SUSPENSION PO ONE (06:01)
[2021-02-23] MEDS ORDERED: MAG HYDROX/AL HYDROX/SIMETH 30 ML UNIT-DOSE CUP ONE (06:11)
[2021-02-23] MEDS: SEVELAMER CARBONATE 800 MG TAB (FP) PO SCH ×3 (06:47→21:13)
[2021-02-23] MEDS ORDERED: SODIUM CHLORIDE 250 ML IV PRN ×2 (07:58→13:15)
[2021-02-23 09:28] LABS: HEMATOCRIT 33.5 % (32.4-45.2); HEMOGLOBIN 10.5 GM/dL (10.7-15.3); MCH 25.4 pg (25.7-33.7); MCHC 31.5 g/dl (32.0-36.0); MEAN CELL VOLUME 80.6 fl (80-96); MEAN PLT VOLUME 9.8 fl (7.5-11.1); PLATELET COUNT 156 10^3/uL (134-434); RBC 4.15 M/mm3 (3.60-5.2); RDW 13.7 % (11.6-15.6); WHITE BLOOD COUNT 7.7 K/mm3 (4.0-10.0)
[2021-02-23 09:57] LABS: CHLORIDE 103 mmol/L (98-107); SODIUM 145 mmol/L (136-145)
[2021-02-23 09:59] LABS: GLUCOSE,RANDOM 83 mg/dL (74-106)
[2021-02-23 10:00] LABS: ALBUMIN 3.1 g/dl (3.4-5.0); ANION GAP 10 MMOL/L (8-16); CALCIUM 8.4 mg/dL (8.5-10.1); CO2 32 mmol/L (21-32); MAGNESIUM 2.8 mg/dL (1.8-2.4)
[2021-02-23] MEDS ORDERED: FAMOTIDINE 20 MG TABLET PO SCH (10:00)
[2021-02-23 10:02] LABS: PHOSPHOROUS 7.2 mg/dL (2.5-4.9); SGPT/ALT 21 U/L (13-61)
[2021-02-23 10:03] LABS: SGOT/AST 14 U/L (15-37)
[2021-02-23 10:05] LABS: ALK PHOS 118 U/L (45-117)
[2021-02-23 10:11] LABS: BILIRUBIN,TOTAL 0.5 mg/dL (0.2-1)
[2021-02-23 10:13] LABS: CREATININE 13.7 mg/dL (0.55-1.3)
[2021-02-23] MEDS: VITAMIN B COMP W-C 1 EA TABLET (NEPHRO-VITE) PO SCH (11:45)
[2021-02-23] MEDS: FAMOTIDINE 10 MG TABLET PO SCH (11:45)
[2021-02-23] MEDS: CHOLECALCIFEROL (VIT D3) 1,000 UNIT (25 MCG) TABLET PO SCH (11:45)
[2021-02-23] MEDS: CARVEDILOL 25 MG TABLET (FP) PO SCH ×2 (11:45→21:13)
[2021-02-23] MEDS: SACUBITRIL/VALSARTAN 24 MG-26 MG TABLET PO SCH ×2 (12:36→21:13)
[2021-02-23] MEDS ORDERED: HEPARIN NA (PORCINE) 5,000 UNITS/ML 1ML VIAL IVPUSH ONE (15:45)
[2021-02-23] MEDS: HEPARIN NA (PORCINE) 5,000 UNITS/ML 1ML VIAL IVPUSH SCH ×2 (16:30→18:17)
[2021-02-23] MEDS: BUDESONIDE/FORMETEROL FUMARATE 160/4.5 mcg INHALER IH SCH ×2 (16:54→21:14)
[2021-02-23] MEDS ORDERED: ATORVASTATIN CA 20 MG TABLET (FP) PO SCH (22:00)
[2021-02-24] MEDS: SEVELAMER CARBONATE 800 MG TAB (FP) PO SCH (05:07)
[2021-02-24] MEDS ORDERED: FAMOTIDINE 10 MG TABLET PO SCH (10:00)
[2021-02-24] MEDS ORDERED: PT OWN MED DRAWER 7, Y5N ONE (10:06)
[2021-02-24 10:26] VITALS: TEMP 98.5
[2021-02-24] MEDS: CARVEDILOL 25 MG TABLET (FP) PO SCH (10:27)
[2021-02-24] MEDS: VITAMIN B COMP W-C 1 EA TABLET (NEPHRO-VITE) PO SCH (10:27)
[2021-02-24] MEDS: SACUBITRIL/VALSARTAN 24 MG-26 MG TABLET PO SCH (10:27)
[2021-02-24] MEDS: FAMOTIDINE 10 MG TABLET PO SCH (10:27)
[2021-02-24] MEDS: CHOLECALCIFEROL (VIT D3) 1,000 UNIT (25 MCG) TABLET PO SCH (10:28)
[2021-02-24] MEDS: BUDESONIDE/FORMETEROL FUMARATE 160/4.5 mcg INHALER IH SCH (10:28)
[2021-02-24] MEDS ORDERED: SEVELAMER CARBONATE 800 MG TAB (FP) PO SCH (12:00)
[2021-02-24 14:31] VITALS: BP 138/51; PULSE 71
== END 2021-02-24 15:57 | disposition home or self-care (01) ==
LOC: JER 16:30 → INTOOBSV 20:15 → JERBED 20:15 → UNDOADMOB 20:15 → JERBED 02-23 10:07 → J6S 02-23 10:22
PROVIDERS: ADMIT Internal Medicine; ATTEND Internal Medicine
PROC: 3E033GC Introduction of Other Therapeutic Substance into Peripheral Vein, Percutaneous Approach (ICD-10-PCS; principal; 2021-02-23)
DX: T82.590A Other mechanical complication of surgically created arteriovenous fistula, initial encounter (principal); I12.0 Hypertensive chronic kidney disease with stage 5 chronic kidney disease or end stage renal disease; N18.6 End stage renal disease; Z99.2 Dependence on renal dialysis; Z91.15 Patient's noncompliance with renal dialysis; B19.20 Unspecified viral hepatitis C without hepatic coma; F17.210 Nicotine dependence, cigarettes, uncomplicated; Z88.0 Allergy status to penicillin; Z91.013 Allergy to seafood; Z88.8 Allergy status to other drugs, medicaments and biological substances; J44.9 Chronic obstructive pulmonary disease, unspecified; Y80.2 Prosthetic and other implants, materials and accessory physical medicine devices associated with adverse incidents
CPT/HCPCS: 36415; 71046-TC-FY; 80053; 83735; 84100; 84484; 85025; 85027; 86803; 86850; 86900; 86901; 87340; 87522; 93005; 93010; 93990-TC; 96374; 96376; 99285-25; C9803; G0378; J1644; U0003; U0005

== ENCOUNTER 2021-05-20 08:03 | Inpatient (IN) | payer OTHER ==
[2021-05-20 10:08] LABS: BASO % 0.6 % (0-2.0); EOS % 7.9 % (0-4.5); HEMATOCRIT 33.1 % (32.4-45.2); HEMOGLOBIN 10.8 GM/dL (10.7-15.3); LYMPH % 30.6 % (8-40); MCHC 32.5 g/dl (32.0-36.0); MEAN PLT VOLUME 9.5 fl (7.5-11.1); MONO % 9.8 % (3.8-10.2); NEUT % 51.1 % (42.8-82.8); PLATELET COUNT 179 10^3/uL (134-434); RDW 13.8 % (11.6-15.6); WHITE BLOOD COUNT 7.7 K/mm3 (4.0-10.0)
[2021-05-20 10:12] LABS: EPI CELLS >36 /uL (0-25.1); HYALINE CASTS 7 /uL (0-3.1); PH,URINE 8.5 (5.0-8.0); URINE APPEARANCE CLOUDY; URINE BACTERIA 2335 /uL (0-1359); URINE BILIRUBIN NEGATIVE (NEGATIVE); URINE COLOR YELLOW; URINE GLUCOSE (UA) NEGATIVE (NEGATIVE); URINE KETONE NEGATIVE (NEGATIVE); URINE LEUK ESTERASE 1+ (NEGATIVE); URINE NITRITE NEGATIVE (NEGATIVE); URINE PROTEIN 3+ (NEGATIVE); URINE RBC 106 /uL (0-23.9); URINE UROBILINOGEN 0.2 mg/dL (0.2-1.0); URINE WBC 440 /uL (0-25.8)
[2021-05-20 10:20] LABS: INR 1.03 (0.83-1.09); PROTHROMBIN TIME (PATIENT) 11.8 SEC (9.7-13.0)
[2021-05-20 10:23] LABS: ACTIVATED PTT 29.2 SECONDS (25.2-36.5)
[2021-05-20 10:28] LABS: ALBUMIN 3.3 g/dl (3.4-5.0); ANION GAP 13 MMOL/L (8-16); BLOOD UREA NITROGEN 81.4 mg/dL (7-18); CALCIUM 9.6 mg/dL (8.5-10.1); CHLORIDE 101 mmol/L (98-107); CO2 26 mmol/L (21-32); MAGNESIUM 2.9 mg/dL (1.8-2.4); SODIUM 141 mmol/L (136-145)
[2021-05-20 10:29] LABS: GLUCOSE,RANDOM 94 mg/dL (74-106)
[2021-05-20 10:31] LABS: SGOT/AST 25 U/L (15-37); SGPT/ALT 33 U/L (13-61)
[2021-05-20 10:32] LABS: PHOSPHOROUS 5.6 mg/dL (2.5-4.9)
[2021-05-20 10:33] LABS: BILIRUBIN,TOTAL 0.4 mg/dL (0.2-1)
[2021-05-20 10:34] LABS: ALK PHOS 129 U/L (45-117); TOT PROT 7.7 g/dl (6.4-8.2)
[2021-05-20 10:44] LABS: CREATININE 12.8 mg/dL (0.55-1.3)
[2021-05-20] MEDS ORDERED: PAPAVERINE HCL 30 MG/1 ML 10 ML VIAL NR ONE (14:01)
[2021-05-20] MEDS ORDERED: HEPARIN NA (PORCINE) 5,000 UNITS/ML 1ML VIAL ONE (14:01)
[2021-05-20] MEDS ORDERED: LIDOCAINE HCL 1%, 10 MG/ML (20ML VIAL) ONE (14:01)
[2021-05-20] MEDS ORDERED: MIDAZOLAM HCL 2 MG/2 ML SINGLE DOSE VIAL ONE ×2 (14:10)
[2021-05-20] MEDS ORDERED: PROPOFOL 20 ML ONE ×3 (14:10→15:38)
[2021-05-20] MEDS ORDERED: LIDOCAINE HCL 1%, 10 MG/ML (20ML VIAL) NR ONE ×4 (14:12→15:04)
[2021-05-20] MEDS ORDERED: HEPARIN NA (PORCINE) 5,000 UNITS/ML 1ML VIAL SQ ONE ×2 (14:13→15:06)
[2021-05-20] MEDS ORDERED: POVIDONE-IODINE OINTMENT 10% - 28.4 GM TUBE TP ONE (14:14)
[2021-05-20] MEDS ORDERED: IOVERSOL 320 MG/ML ML IV ONE ×2 (14:41→15:06)
[2021-05-20] MEDS ORDERED: ceFAZolin SODIUM 1 GM VIAL ONE (14:53)
[2021-05-20] MEDS ORDERED: ceFAZolin 2 GRAM PREMIX BAG IVPB ONE (14:53)
[2021-05-20] MEDS ORDERED: LIDOCAINE HCL 2% 100 MG/5 ML DISP.SYRIN ONE (15:49)
[2021-05-20] MEDS ORDERED: ACETAMINOPHEN 500 MG TABLET (FP) PO PRN (16:19)
[2021-05-20] MEDS ORDERED: oxyCODONE HCL 5 MG TABLET PO PRN (16:20)
[2021-05-20] MEDS ORDERED: SODIUM CHLORIDE 250 ML IV PRN ×2 (16:46→20:43)
[2021-05-20] MEDS ORDERED: HEPARIN NA (PORCINE) 5,000 UNITS/ML 1ML VIAL IVPUSH ONE (17:00)
[2021-05-20] MEDS ORDERED: CARVEDILOL 25 MG TABLET (FP) PO SCH (22:00)
[2021-05-20] MEDS ORDERED: BUDESONIDE/FORMETEROL FUMARATE 160/4.5 mcg INHALER IH SCH (22:00)
[2021-05-20] MEDS ORDERED: SACUBITRIL/VALSARTAN 24 MG-26 MG TABLET PO SCH (22:00)
[2021-05-20] MEDS ORDERED: ATORVASTATIN CA 20 MG TABLET (FP) PO SCH ×2 (22:00)
[2021-05-20] MEDS: CARVEDILOL 25 MG TABLET (FP) PO SCH (22:11)
[2021-05-20] MEDS: SACUBITRIL/VALSARTAN 24 MG-26 MG TABLET PO SCH (22:11)
[2021-05-20] MEDS: APIXABAN 2.5 MG TABLET PO SCH (22:11)
[2021-05-20] MEDS: BUDESONIDE/FORMETEROL FUMARATE 160/4.5 mcg INHALER IH SCH (22:12)
[2021-05-20 22:37] VITALS: BP 133/55; PULSE 69; TEMP 97.9
[2021-05-21] MEDS ORDERED: MAG HYDROX/AL HYDROX/SIMETH 30 ML UNIT-DOSE CUP PO ONE (03:20)
[2021-05-21 03:49] VITALS: BMI 21.0
[2021-05-21 09:16] LABS: BASO % 0.1 % (0-2.0); HEMATOCRIT 31.6 % (32.4-45.2); HEMOGLOBIN 10.2 GM/dL (10.7-15.3); LYMPH % 10.5 % (8-40); MCH 24.7 pg (25.7-33.7); MCHC 32.2 g/dl (32.0-36.0); MEAN CELL VOLUME 76.5 fl (80-96); MEAN PLT VOLUME 9.8 fl (7.5-11.1); MONO % 4.2 % (3.8-10.2); NEUT % 85.2 % (42.8-82.8); PLATELET COUNT 193 10^3/uL (134-434); RBC 4.13 M/mm3 (3.60-5.2); RDW 13.5 % (11.6-15.6); WHITE BLOOD COUNT 12.1 K/mm3 (4.0-10.0)
[2021-05-21] MEDS: SACUBITRIL/VALSARTAN 24 MG-26 MG TABLET PO SCH (09:23)
[2021-05-21] MEDS: APIXABAN 2.5 MG TABLET PO SCH (09:23)
[2021-05-21] MEDS: CARVEDILOL 25 MG TABLET (FP) PO SCH (09:23)
[2021-05-21] MEDS: BUDESONIDE/FORMETEROL FUMARATE 160/4.5 mcg INHALER IH SCH (09:24)
[2021-05-21 09:34] LABS: CHLORIDE 102 mmol/L (98-107); SODIUM 141 mmol/L (136-145)
[2021-05-21 09:40] LABS: ANION GAP 10 MMOL/L (8-16); CALCIUM 9.4 mg/dL (8.5-10.1); CO2 29 mmol/L (21-32)
[2021-05-21 09:41] LABS: ALBUMIN 3.4 g/dl (3.4-5.0); GLUCOSE,RANDOM 146 mg/dL (74-106); MAGNESIUM 2.5 mg/dL (1.8-2.4)
[2021-05-21 09:43] LABS: SGPT/ALT 43 U/L (13-61)
[2021-05-21 09:44] LABS: PHOSPHOROUS 3.8 mg/dL (2.5-4.9); SGOT/AST 34 U/L (15-37)
[2021-05-21 09:45] LABS: BILIRUBIN,TOTAL 0.6 mg/dL (0.2-1); TOT PROT 7.7 g/dl (6.4-8.2)
[2021-05-21 09:47] LABS: ALK PHOS 125 U/L (45-117); CREATININE 8.8 mg/dL (0.55-1.3)
[2021-05-21] MEDS ORDERED: VITAMIN B COMP W-C 1 EA TABLET (NEPHRO-VITE) PO SCH ×2 (10:00)
[2021-05-21] MEDS ORDERED: CHOLECALCIFEROL (VIT D3) 1,000 UNIT (25 MCG) TABLET PO SCH ×2 (10:00)
[2021-05-21] MEDS ORDERED: FAMOTIDINE 20 MG TABLET PO SCH ×2 (10:00)
== END 2021-05-21 09:53 | disposition home or self-care (01) | DRG 252 ==
LOC: JER 08:03 → JERBED 08:47 → J8W 20:17
PROVIDERS: ADMIT Internal Medicine; ATTEND Internal Medicine
PROC: 05CY0ZZ Extirpation of Matter from Upper Vein, Open Approach (ICD-10-PCS; 2021-05-20)
PROC: 057 Upper Veins, Dilation (ICD-10-PCS; 2021-05-20)
PROC: 03CY0ZZ Extirpation of Matter from Upper Artery, Open Approach (ICD-10-PCS; principal; 2021-05-20 14:00)
DX: T82.868A Thrombosis due to vascular prosthetic devices, implants and grafts, initial encounter (principal); N18.6 End stage renal disease; I50.22 Chronic systolic (congestive) heart failure; I13.2 Hypertensive heart and chronic kidney disease with heart failure and with stage 5 chronic kidney disease, or end stage renal disease; J44.9 Chronic obstructive pulmonary disease, unspecified; D64.9 Anemia, unspecified; F17.210 Nicotine dependence, cigarettes, uncomplicated; R42 Dizziness and giddiness; R45.1 Restlessness and agitation; Y83.9 Surgical procedure, unspecified as the cause of abnormal reaction of the patient, or of later complication, without mention of misadventure at the time of the procedure
CPT/HCPCS: 36415; 71045-TC-FY; 76000-TC-FY; 80053; 81003; 83735; 84100; 85025; 85610; 85730; 86803; 87340; 87522; 93005; 93010; 94760; 99285-25; C9803-CS; J1644; U0003; U0005

== ENCOUNTER 2021-06-07 17:34 | Observation (INO) | payer OTHER ==
[2021-06-07] MEDS: ALBUTEROL SO4 2.5/IPRATROPIUM 0.5 INH SOL 3 ML VIAL.NEB. NEB SCH ×2 (18:20→18:35)
[2021-06-07 19:02] VITALS: BMI 21.7
[2021-06-07 19:13] LABS: HEMATOCRIT 33.6 % (32.4-45.2); HEMOGLOBIN 10.9 GM/dL (10.7-15.3); MCH 25.1 pg (25.7-33.7); MCHC 32.5 g/dl (32.0-36.0); MEAN CELL VOLUME 77.3 fl (80-96); MEAN PLT VOLUME 8.7 fl (7.5-11.1); PLATELET COUNT 148 10^3/uL (134-434); RBC 4.35 M/mm3 (3.60-5.2); RDW 14.4 % (11.6-15.6); WHITE BLOOD COUNT 8.2 K/mm3 (4.0-10.0)
[2021-06-07 19:19] LABS: INR 1.03 (0.83-1.09); PROTHROMBIN TIME (PATIENT) 11.9 SEC (9.7-13.0)
[2021-06-07 19:22] LABS: ACTIVATED PTT 32.5 SECONDS (25.2-36.5)
[2021-06-07 19:51] LABS: CHLORIDE 99 mmol/L (98-107); SODIUM 131 mmol/L (136-145)
[2021-06-07 19:53] LABS: ALBUMIN 3.8 g/dl (3.4-5.0); ANION GAP 10 MMOL/L (8-16); CALCIUM 8.8 mg/dL (8.5-10.1); CO2 22 mmol/L (21-32); GLUCOSE,RANDOM 77 mg/dL (74-106); MAGNESIUM 2.2 mg/dL (1.8-2.4)
[2021-06-07 19:54] LABS: BLOOD UREA NITROGEN 28.5 mg/dL (7-18)
[2021-06-07 19:56] LABS: SGOT/AST 59 U/L (15-37)
[2021-06-07 19:57] LABS: PHOSPHOROUS 2.8 mg/dL (2.5-4.9); SGPT/ALT 40 U/L (13-61)
[2021-06-07 19:58] LABS: BILIRUBIN,TOTAL 0.6 mg/dL (0.2-1); TOT PROT 8.5 g/dl (6.4-8.2)
[2021-06-07 19:59] LABS: ALK PHOS 132 U/L (45-117)
[2021-06-07 20:00] LABS: VENOUS BASE EXCESS -2.5 mmol/L (-2-2); VENOUS O2 SATURATION 21.7 % (70-80); VENOUS PCO2 42.2 mmHg (38-52); VENOUS PH 7.354 (7.310-7.410)
[2021-06-07 20:02] LABS: ARTERIAL BLD GAS O2 SATURATION 99.2 % (95-98); ARTERIAL BLOOD GAS BASE EXCESS -2.6 mmol/L (-2-2); ARTERIAL BLOOD GAS PO2 163.7 mmHg (80-100); ARTERIAL BLOOD GAS pH 7.459 (7.350-7.450)
[2021-06-07 20:02] LABS: N-TERMINAL BNP 3585.8 pg/ml (5-125)
[2021-06-07 23:09] LABS: CHLORIDE 101 mmol/L (98-107); SODIUM 133 mmol/L (136-145)
[2021-06-07 23:10] LABS: CALCIUM 8.7 mg/dL (8.5-10.1)
[2021-06-07 23:11] LABS: ANION GAP 10 MMOL/L (8-16); BLOOD UREA NITROGEN 35.8 mg/dL (7-18); CO2 22 mmol/L (21-32); GLUCOSE,RANDOM 79 mg/dL (74-106)
[2021-06-07 23:28] LABS: CREATININE 8.2 mg/dL (0.55-1.3)
[2021-06-08] MEDS: CARVEDILOL 25 MG TABLET (FP) PO SCH ×2 (02:00→11:03)
[2021-06-08] MEDS: SACUBITRIL/VALSARTAN 24 MG-26 MG TABLET PO SCH ×3 (02:00→22:06)
[2021-06-08] MEDS ORDERED: CARVEDILOL 25 MG TABLET (FP) ONE (02:46)
[2021-06-08] MEDS: BUDESONIDE/FORMETEROL FUMARATE 160/4.5 mcg INHALER IH SCH ×3 (02:59→21:35)
[2021-06-08] MEDS: SEVELAMER CARBONATE 800 MG TAB (FP) PO SCH ×2 (05:46→21:34)
[2021-06-08] MEDS ORDERED: APIXABAN 5 MG TABLET ONE (09:25)
[2021-06-08] MEDS ORDERED: ASPIRIN 81 MG CHEWABLE TABLETS ONE (09:26)
[2021-06-08] MEDS ORDERED: CHOLECALCIFEROL (VIT D3) 1,000 UNIT (25 MCG) TABLET ONE (09:26)
[2021-06-08] MEDS ORDERED: APIXABAN 2.5 MG TABLET ONE (09:36)
[2021-06-08] MEDS ORDERED: FAMOTIDINE 20 MG TABLET PO SCH ×2 (10:00)
[2021-06-08] MEDS: ASPIRIN 81 MG CHEWABLE TABLETS PO SCH (10:30)
[2021-06-08] MEDS: CHOLECALCIFEROL (VIT D3) 1,000 UNIT (25 MCG) TABLET PO SCH (10:30)
[2021-06-08] MEDS: APIXABAN 2.5 MG TABLET PO SCH ×2 (10:30→21:34)
[2021-06-08 11:32] LABS: HEMATOCRIT 31.6 % (32.4-45.2); HEMOGLOBIN 10.3 GM/dL (10.7-15.3); MCH 25.3 pg (25.7-33.7); MCHC 32.6 g/dl (32.0-36.0); MEAN CELL VOLUME 77.7 fl (80-96); MEAN PLT VOLUME 8.2 fl (7.5-11.1); PLATELET COUNT 132 10^3/uL (134-434); RBC 4.07 M/mm3 (3.60-5.2); RDW 14.6 % (11.6-15.6); WHITE BLOOD COUNT 7.4 K/mm3 (4.0-10.0)
[2021-06-08 11:56] LABS: CHLORIDE 102 mmol/L (98-107); SODIUM 134 mmol/L (136-145)
[2021-06-08 11:58] LABS: ALBUMIN 3.4 g/dl (3.4-5.0); ANION GAP 11 MMOL/L (8-16); CALCIUM 8.6 mg/dL (8.5-10.1); CO2 21 mmol/L (21-32); GLUCOSE,RANDOM 88 mg/dL (74-106); MAGNESIUM 2.4 mg/dL (1.8-2.4)
[2021-06-08 12:01] LABS: PHOSPHOROUS 6.1 mg/dL (2.5-4.9); SGOT/AST 22 U/L (15-37); SGPT/ALT 29 U/L (13-61)
[2021-06-08 12:03] LABS: BILIRUBIN,TOTAL 0.6 mg/dL (0.2-1)
[2021-06-08 12:04] LABS: ALK PHOS 113 U/L (45-117)
[2021-06-08 12:05] LABS: TOT PROT 7.2 g/dl (6.4-8.2)
[2021-06-08 12:10] LABS: CREATININE 9.7 mg/dL (0.55-1.3)
[2021-06-08] MEDS ORDERED: ATORVASTATIN CA 20 MG TABLET (FP) PO SCH (22:00)
[2021-06-09] MEDS ORDERED: PANTOPRAZOLE 20 MG TABLET PO ONE (01:08)
[2021-06-09 07:28] LABS: CHLORIDE 104 mmol/L (98-107); SODIUM 140 mmol/L (136-145)
[2021-06-09 07:30] LABS: BASO % 0.8 % (0-2.0); HEMATOCRIT 30.6 % (32.4-45.2); HEMOGLOBIN 9.8 GM/dL (10.7-15.3); LYMPH % 32.5 % (8-40); MCHC 32.1 g/dl (32.0-36.0); MEAN CELL VOLUME 77.8 fl (80-96); MEAN PLT VOLUME 9.1 fl (7.5-11.1); MONO % 10.6 % (3.8-10.2); NEUT % 48.1 % (42.8-82.8); PLATELET COUNT 144 10^3/uL (134-434); RBC 3.93 M/mm3 (3.60-5.2); RDW 14.7 % (11.6-15.6); WHITE BLOOD COUNT 7.7 K/mm3 (4.0-10.0)
[2021-06-09 07:33] LABS: ALBUMIN 2.9 g/dl (3.4-5.0); ANION GAP 12 MMOL/L (8-16); BLOOD UREA NITROGEN 63.1 mg/dL (7-18); CALCIUM 8.5 mg/dL (8.5-10.1); CO2 24 mmol/L (21-32); GLUCOSE,RANDOM 92 mg/dL (74-106); MAGNESIUM 2.5 mg/dL (1.8-2.4)
[2021-06-09 07:36] LABS: PHOSPHOROUS 4.8 mg/dL (2.5-4.9); SGOT/AST 15 U/L (15-37); SGPT/ALT 26 U/L (13-61)
[2021-06-09 07:38] LABS: BILIRUBIN,TOTAL 0.4 mg/dL (0.2-1); TOT PROT 6.8 g/dl (6.4-8.2)
[2021-06-09 07:39] LABS: ALK PHOS 111 U/L (45-117); CREATININE 11.7 mg/dL (0.55-1.3)
[2021-06-09] MEDS: BUDESONIDE/FORMETEROL FUMARATE 160/4.5 mcg INHALER IH SCH (10:09)
[2021-06-09] MEDS ORDERED: SODIUM CHLORIDE 250 ML IV PRN (10:23)
[2021-06-09] MEDS ORDERED: HEPARIN NA (PORCINE) 5,000 UNITS/ML 1ML VIAL IVPUSH ONE (10:30)
[2021-06-09] MEDS ORDERED: REGADENOSON 0.4 MG/5 ML PRE-FILLED SYRINGE IVPUSH ONE ×2 (10:33→10:45)
[2021-06-09] MEDS ORDERED: EPOETIN ALFA-EPBX 3,000 UNIT/ML VIAL SQ ONE (10:45)
[2021-06-09] MEDS ORDERED: AMINOPHYLLINE 250 MG/10 ML VIAL IVPUSH ONE (11:30)
[2021-06-09] MEDS: CHOLECALCIFEROL (VIT D3) 1,000 UNIT (25 MCG) TABLET PO SCH (12:08)
[2021-06-09] MEDS: ASPIRIN 81 MG CHEWABLE TABLETS PO SCH (12:08)
[2021-06-09] MEDS: VITAMIN B COMP W-C 1 EA TABLET (NEPHRO-VITE) PO SCH (12:08)
[2021-06-09] MEDS: APIXABAN 2.5 MG TABLET PO SCH (12:08)
[2021-06-09] MEDS: SACUBITRIL/VALSARTAN 24 MG-26 MG TABLET PO SCH (12:09)
[2021-06-09] MEDS: SEVELAMER CARBONATE 800 MG TAB (FP) PO SCH (13:23)
[2021-06-09 17:16] VITALS: TEMP 97.8
[2021-06-09] MEDS: HEPARIN NA (PORCINE) 5,000 UNITS/ML 1ML VIAL IVPUSH SCH ×3 (17:25→20:27)
[2021-06-09 20:27] VITALS: BP 110/72; PULSE 97
== END 2021-06-09 21:58 | disposition home or self-care (01) ==
LOC: JER 17:34 → JERBED 23:17 → INTOOBSV 23:17 → J4W 06-08 15:33
PROVIDERS: ADMIT Hospitalist; ATTEND Nurse Practitioner Acute Care
PROC: 3E0F7GC Introduction of Other Therapeutic Substance into Respiratory Tract, Via Natural or Artificial Opening (ICD-10-PCS; principal; 2021-06-07)
PROC: 3E033GC Introduction of Other Therapeutic Substance into Peripheral Vein, Percutaneous Approach (ICD-10-PCS; 2021-06-07)
PROC: 3E023GC Introduction of Other Therapeutic Substance into Muscle, Percutaneous Approach (ICD-10-PCS; 2021-06-07)
DX: R07.9 Chest pain, unspecified (principal); T68.XXXA Hypothermia, initial encounter; N18.6 End stage renal disease; I11.0 Hypertensive heart disease with heart failure; J44.9 Chronic obstructive pulmonary disease, unspecified; I74.9 Embolism and thrombosis of unspecified artery; L68.0 Hirsutism; Z88.0 Allergy status to penicillin; Z91.013 Allergy to seafood; Z99.2 Dependence on renal dialysis; Z88.8 Allergy status to other drugs, medicaments and biological substances
CPT/HCPCS: 36415; 36600; 71045-TC-FY; 78452-TC; 80048; 80053; 82533; 82553; 82803; 83036; 83605; 83735; 83880; 84100; 84439; 84443; 84484; 85025; 85027; 85610; 85730; 86850; 86900; 86901; 87040; 93005; 93010; 93017; 93306-TC; 94640; 96372; 96374; 96375; 99285-25; A9502; C9803-CS; G0378; J1644; J2785; Q5106; U0003; U0005

== ENCOUNTER 2021-07-02 15:14 | Inpatient (IN) | payer OTHER ==
[2021-07-02] MEDS ORDERED: SODIUM CHLORIDE 250 ML IV PRN (16:03)
[2021-07-02 17:31] LABS: BASO % 0.7 % (0-2.0); EOS % 8.3 % (0-4.5); HEMATOCRIT 30.1 % (32.4-45.2); HEMOGLOBIN 9.6 GM/dL (10.7-15.3); LYMPH % 26.6 % (8-40); MCH 25.2 pg (25.7-33.7); MEAN CELL VOLUME 78.7 fl (80-96); MEAN PLT VOLUME 9.5 fl (7.5-11.1); NEUT % 56.4 % (42.8-82.8); PLATELET COUNT 216 10^3/uL (134-434); RBC 3.82 M/mm3 (3.60-5.2); WHITE BLOOD COUNT 5.8 K/mm3 (4.0-10.0)
[2021-07-02 17:50] LABS: CHLORIDE 103 mmol/L (98-107); SODIUM 140 mmol/L (136-145)
[2021-07-02 17:52] LABS: ALBUMIN 3.2 g/dl (3.4-5.0); ANION GAP 9 MMOL/L (8-16); BLOOD UREA NITROGEN 48.3 mg/dL (7-18); CALCIUM 9.4 mg/dL (8.5-10.1); CO2 28 mmol/L (21-32); GLUCOSE,RANDOM 93 mg/dL (74-106)
[2021-07-02 17:55] LABS: SGOT/AST 51 U/L (15-37); SGPT/ALT 38 U/L (13-61)
[2021-07-02 17:57] LABS: BILIRUBIN,TOTAL 0.3 mg/dL (0.2-1); TOT PROT 7.5 g/dl (6.4-8.2)
[2021-07-02 17:58] LABS: ALK PHOS 110 U/L (45-117)
[2021-07-02 18:03] LABS: CREATININE 10.1 mg/dL (0.55-1.3)
[2021-07-02] MEDS ORDERED: CARVEDILOL 12.5 MG TABLET (FP) PO ONE (21:02)
[2021-07-02] MEDS ORDERED: ATORVASTATIN CA 20 MG TABLET (FP) ONE (21:12)
[2021-07-02] MEDS ORDERED: CARVEDILOL 12.5 MG TABLET (FP) ONE (21:13)
[2021-07-02] MEDS ORDERED: APIXABAN 2.5 MG TABLET ONE (21:13)
[2021-07-02] MEDS ORDERED: APIXABAN 2.5 MG TABLET PO SCH (22:00)
[2021-07-02] MEDS ORDERED: ATORVASTATIN CA 20 MG TABLET (FP) PO SCH (22:00)
[2021-07-02] MEDS ORDERED: SEVELAMER CARBONATE 800 MG TAB (FP) PO SCH (22:00)
[2021-07-02] MEDS: SACUBITRIL/VALSARTAN 24 MG-26 MG TABLET PO SCH (22:05)
[2021-07-03 00:40] VITALS: BMI 22.0
[2021-07-03] MEDS: SEVELAMER CARBONATE 800 MG TAB (FP) PO SCH ×2 (09:08→18:11)
[2021-07-03] MEDS: SACUBITRIL/VALSARTAN 24 MG-26 MG TABLET PO SCH (09:09)
[2021-07-03] MEDS ORDERED: CARVEDILOL 6.25 MG TABLET (FP) PO SCH (10:00)
[2021-07-03] MEDS ORDERED: BUDESONIDE/FORMETEROL FUMARATE 160/4.5 mcg INHALER IH SCH ×2 (10:00→22:00)
[2021-07-03] MEDS ORDERED: FAMOTIDINE 20 MG TABLET PO SCH (10:00)
[2021-07-03] MEDS ORDERED: ASPIRIN 81 MG CHEWABLE TABLETS PO SCH (10:00)
[2021-07-03] MEDS ORDERED: VITAMIN B COMP W-C 1 EA TABLET (NEPHRO-VITE) PO SCH (10:00)
[2021-07-03 10:16] LABS: CHLORIDE 105 mmol/L (98-107); SODIUM 141 mmol/L (136-145)
[2021-07-03 10:25] LABS: ANION GAP 11 MMOL/L (8-16); BLOOD UREA NITROGEN 68.6 mg/dL (7-18); CALCIUM 9.2 mg/dL (8.5-10.1); CO2 25 mmol/L (21-32); GLUCOSE,RANDOM 98 mg/dL (74-106)
[2021-07-03 10:27] LABS: SGPT/ALT 27 U/L (13-61)
[2021-07-03 10:28] LABS: PHOSPHOROUS 5.7 mg/dL (2.5-4.9); SGOT/AST 15 U/L (15-37)
[2021-07-03 10:29] LABS: BILIRUBIN,TOTAL 0.4 mg/dL (0.2-1); TOT PROT 6.6 g/dl (6.4-8.2)
[2021-07-03 10:30] LABS: ALK PHOS 96 U/L (45-117)
[2021-07-03] MEDS ORDERED: LIDOCAINE HCL 1%, 10 MG/ML (20ML VIAL) ONE (11:15)
[2021-07-03] MEDS ORDERED: THROMBIN (BOVINE) 5,000 UNIT VIAL TP ONE (11:15)
[2021-07-03] MEDS ORDERED: SUCCINYLCHOLINE CHLORIDE 200 MG/10 ML SYRINGE ONE (11:33)
[2021-07-03] MEDS ORDERED: PROPOFOL 20 ML ONE ×3 (11:33→12:27)
[2021-07-03] MEDS ORDERED: MIDAZOLAM HCL 2 MG/2 ML SINGLE DOSE VIAL ONE ×2 (12:05→12:25)
[2021-07-03] MEDS ORDERED: CLINDAMYCIN PHOSPHATE 600 MG/4 ML VIAL IVPB ONE (12:30)
[2021-07-03] MEDS ORDERED: LIDOCAINE HCL 1%, 10 MG/ML (50 mL VIAL) INF ONE (12:33)
[2021-07-03] MEDS ORDERED: POVIDONE-IODINE OINTMENT 10% - 28.4 GM TUBE ONE (12:57)
[2021-07-03] MEDS ORDERED: ONDANSETRON 4 MG/2 ML VIAL IVPUSH PRN (13:22)
[2021-07-03] MEDS ORDERED: SODIUM CHLORIDE 250 ML IV PRN (13:36)
[2021-07-03 14:58] LABS: HEMATOCRIT 25.3 % (32.4-45.2); HEMOGLOBIN 8.1 GM/dL (10.7-15.3); MCH 25.1 pg (25.7-33.7); MEAN CELL VOLUME 78.2 fl (80-96); MEAN PLT VOLUME 8.8 fl (7.5-11.1); PLATELET COUNT 184 10^3/uL (134-434); RBC 3.24 M/mm3 (3.60-5.2); RDW 14.9 % (11.6-15.6); WHITE BLOOD COUNT 6.7 K/mm3 (4.0-10.0)
[2021-07-03] MEDS ORDERED: HEPARIN NA (PORCINE) 5,000 UNITS/ML 1ML VIAL IVPUSH ONE ×2 (16:03)
[2021-07-03] MEDS ORDERED: SEVELAMER CARBONATE 800 MG TAB (FP) PO SCH (17:30)
[2021-07-03 18:10] VITALS: BP 106/53; PULSE 66; TEMP 98.9
[2021-07-03] MEDS ORDERED: APIXABAN 5 MG TABLET PO SCH (22:00)
[2021-07-03] MEDS ORDERED: SACUBITRIL/VALSARTAN 24 MG-26 MG TABLET PO SCH (22:00)
[2021-07-03] MEDS ORDERED: ATORVASTATIN CA 20 MG TABLET (FP) PO SCH (22:00)
[2021-07-03] MEDS ORDERED: CARVEDILOL 25 MG TABLET (FP) PO SCH (22:00)
[2021-07-04] MEDS ORDERED: ASPIRIN 81 MG CHEWABLE TABLETS PO SCH (10:00)
[2021-07-04] MEDS ORDERED: VITAMIN B COMP W-C 1 EA TABLET (NEPHRO-VITE) PO SCH (10:00)
== END 2021-07-03 18:36 | disposition home or self-care (01) | DRG 252 ==
LOC: JER 15:14 → JERBED 18:12 → J5S 23:21
PROVIDERS: ADMIT Hospitalist; ATTEND Nurse Practitioner Family
PROC: B50MYZZ Plain Radiography of Right Upper Extremity Veins using Other Contrast (ICD-10-PCS; 2021-07-03)
PROC: 5A1D70Z Performance of Urinary Filtration, Intermittent, Less than 6 Hours Per Day (ICD-10-PCS; 2021-07-03)
PROC: 05C90ZZ Extirpation of Matter from Right Brachial Vein, Open Approach (ICD-10-PCS; principal; 2021-07-03 11:30)
DX: T82.868A Thrombosis due to vascular prosthetic devices, implants and grafts, initial encounter (principal); N18.6 End stage renal disease; I13.2 Hypertensive heart and chronic kidney disease with heart failure and with stage 5 chronic kidney disease, or end stage renal disease; I50.22 Chronic systolic (congestive) heart failure; N88.8 Other specified noninflammatory disorders of cervix uteri; G40.909 Epilepsy, unspecified, not intractable, without status epilepticus; B19.20 Unspecified viral hepatitis C without hepatic coma; R07.89 Other chest pain; D64.9 Anemia, unspecified; J44.9 Chronic obstructive pulmonary disease, unspecified; Z99.2 Dependence on renal dialysis; Y83.8 Other surgical procedures as the cause of abnormal reaction of the patient, or of later complication, without mention of misadventure at the time of the procedure
CPT/HCPCS: 36415; 71045-TC-FY; 76000-TC-FY; 80048; 80053; 83735; 84100; 85025; 85027; 86803; 87340; 87522; 93005; 93010; 93971; 94760; 99285-25; C9803-CS; U0003; U0005

== ENCOUNTER 2021-07-20 17:12 | Inpatient (IN) | payer OTHER ==
[2021-07-20 20:10] LABS: EPI CELLS >36 /uL (0-25.1); HYALINE CASTS 78 /uL (0-3.1); PH,URINE 8.5 (5.0-8.0); URINE APPEARANCE TURBID; URINE BACTERIA 320 /uL (0-1359); URINE BILIRUBIN NEGATIVE (NEGATIVE); URINE COLOR RED; URINE GLUCOSE (UA) NEGATIVE (NEGATIVE); URINE KETONE NEGATIVE (NEGATIVE); URINE LEUK ESTERASE 1+ (NEGATIVE); URINE NITRITE NEGATIVE (NEGATIVE); URINE PROTEIN 2+ (NEGATIVE); URINE UROBILINOGEN 0.2 mg/dL (0.2-1.0); URINE WBC 9373 /uL (0-25.8)
[2021-07-20 20:41] LABS: BASO % 0.8 % (0-2.0); HEMATOCRIT 29.3 % (32.4-45.2); HEMOGLOBIN 9.4 GM/dL (10.7-15.3); LYMPH % 28.3 % (8-40); MCH 25.8 pg (25.7-33.7); MCHC 32.2 g/dl (32.0-36.0); MEAN PLT VOLUME 9.7 fl (7.5-11.1); MONO % 10.1 % (3.8-10.2); NEUT % 50.8 % (42.8-82.8); PLATELET COUNT 176 10^3/uL (134-434); RBC 3.66 M/mm3 (3.60-5.2); RDW 15.2 % (11.6-15.6); WHITE BLOOD COUNT 6.2 K/mm3 (4.0-10.0)
[2021-07-20 21:00] LABS: CHLORIDE 103 mmol/L (98-107); SODIUM 140 mmol/L (136-145)
[2021-07-20 21:02] LABS: ALBUMIN 3.2 g/dl (3.4-5.0); CALCIUM 9.5 mg/dL (8.5-10.1); LIPASE 160 U/L (73-393)
[2021-07-20 21:03] LABS: ANION GAP 10 MMOL/L (8-16); BLOOD UREA NITROGEN 41.2 mg/dL (7-18); CO2 27 mmol/L (21-32); GLUCOSE,RANDOM 109 mg/dL (74-106)
[2021-07-20 21:05] LABS: SGOT/AST 20 U/L (15-37); SGPT/ALT 25 U/L (13-61)
[2021-07-20 21:07] LABS: BILIRUBIN,TOTAL 0.4 mg/dL (0.2-1); TOT PROT 7.4 g/dl (6.4-8.2)
[2021-07-20 21:08] LABS: ALK PHOS 116 U/L (45-117)
[2021-07-20 21:11] LABS: CREATININE 9.1 mg/dL (0.55-1.3)
[2021-07-20 22:28] LABS: URINE RBC 21643 /uL (0-23.9)
[2021-07-21 01:02] VITALS: BMI 21.8
[2021-07-21] MEDS: SEVELAMER CARBONATE 800 MG TAB (FP) PO SCH ×3 (08:02→16:55)
[2021-07-21] MEDS ORDERED: HEPARIN NA (PORCINE) 5,000 UNITS/ML 1ML VIAL IVPUSH ONE (09:00)
[2021-07-21] MEDS ORDERED: EPOETIN ALFA-EPBX 4,000 UNIT/ML VIAL SQ ONE (09:00)
[2021-07-21] MEDS ORDERED: SODIUM CHLORIDE 250 ML IV PRN ×2 (09:01)
[2021-07-21] MEDS ORDERED: FAMOTIDINE 20 MG TABLET PO SCH (10:00)
[2021-07-21] MEDS: HEPARIN NA (PORCINE) 5,000 UNITS/ML 1ML VIAL IVPUSH SCH ×3 (10:50→14:25)
[2021-07-21 11:10] LABS: EOS % 12.8 % (0-4.5); HEMATOCRIT 23.5 % (32.4-45.2); HEMOGLOBIN 7.6 GM/dL (10.7-15.3); LYMPH % 26.6 % (8-40); MCH 25.6 pg (25.7-33.7); MCHC 32.2 g/dl (32.0-36.0); MEAN CELL VOLUME 79.5 fl (80-96); MONO % 10.1 % (3.8-10.2); NEUT % 49.5 % (42.8-82.8); PLATELET COUNT 158 10^3/uL (134-434); RBC 2.96 M/mm3 (3.60-5.2); WHITE BLOOD COUNT 5.2 K/mm3 (4.0-10.0)
[2021-07-21 11:18] LABS: INR 1.38 (0.83-1.09); PROTHROMBIN TIME (PATIENT) 15.9 SEC (9.7-13.0)
[2021-07-21 11:21] LABS: ACTIVATED PTT 69.8 SECONDS (25.2-36.5)
[2021-07-21 11:54] LABS: ALBUMIN 2.6 g/dl (3.4-5.0); ALK PHOS 97 U/L (45-117); ANION GAP 7 MMOL/L (8-16); BILIRUBIN,TOTAL 0.3 mg/dL (0.2-1); CALCIUM 8.3 mg/dL (8.5-10.1); CHLORIDE 106 mmol/L (98-107); CO2 29 mmol/L (21-32); CREATININE 9.7 mg/dL (0.55-1.3); GLUCOSE,RANDOM 118 mg/dL (74-106); MAGNESIUM 2.3 mg/dL (1.8-2.4); PHOSPHOROUS 4.8 mg/dL (2.5-4.9); SGOT/AST 22 U/L (15-37); SGPT/ALT 24 U/L (13-61); SODIUM 142 mmol/L (136-145); TOT PROT 5.9 g/dl (6.4-8.2)
[2021-07-21] MEDS ORDERED: CEFTRIAXONE 1 GM in DEXTROSE 5%-WATER - 50 ML IVPB ONE (14:00)
[2021-07-21] MEDS: VITAMIN B COMP W-C 1 EA TABLET (NEPHRO-VITE) PO SCH (14:32)
[2021-07-21] MEDS: CHOLECALCIFEROL (VIT D3) 1,000 UNIT (25 MCG) TABLET PO SCH (14:33)
[2021-07-21] MEDS: FAMOTIDINE 20 MG TABLET PO SCH (14:33)
[2021-07-21] MEDS: CARVEDILOL 25 MG TABLET (FP) PO SCH ×2 (14:33→21:53)
[2021-07-21] MEDS: APIXABAN 5 MG TABLET PO SCH ×3 (14:33→21:52)
[2021-07-21] MEDS: BUDESONIDE/FORMETEROL FUMARATE 160/4.5 mcg INHALER IH SCH ×2 (14:34→21:54)
[2021-07-21] MEDS: SACUBITRIL/VALSARTAN 24 MG-26 MG TABLET PO SCH ×2 (14:34→21:56)
[2021-07-21 17:53] LABS: URINE APPEARANCE Turbid; URINE BILIRUBIN 3+ (NEGATIVE); URINE GLUCOSE (UA) Trace (NEGATIVE); URINE PROTEIN 3+ (NEGATIVE)
[2021-07-21 18:08] LABS: URINE COLOR Red; URINE RBC TOOMANY TO ENUERMATE /uL (0-23.9)
[2021-07-21] MEDS: ATORVASTATIN CA 40 MG TABLET (FP) PO SCH (21:53)
[2021-07-22] MEDS ORDERED: ACETAMINOPHEN 325 MG TABLET (FP) PO ONE (02:10)
[2021-07-22] MEDS: FAMOTIDINE 20 MG TABLET PO SCH (09:14)
[2021-07-22] MEDS: VITAMIN B COMP W-C 1 EA TABLET (NEPHRO-VITE) PO SCH (09:14)
[2021-07-22] MEDS: CARVEDILOL 25 MG TABLET (FP) PO SCH (09:14)
[2021-07-22] MEDS: SACUBITRIL/VALSARTAN 24 MG-26 MG TABLET PO SCH (09:14)
[2021-07-22] MEDS: SEVELAMER CARBONATE 800 MG TAB (FP) PO SCH ×3 (09:14→17:44)
[2021-07-22] MEDS: CHOLECALCIFEROL (VIT D3) 1,000 UNIT (25 MCG) TABLET PO SCH (09:14)
[2021-07-22] MEDS: BUDESONIDE/FORMETEROL FUMARATE 160/4.5 mcg INHALER IH SCH (09:15)
[2021-07-22] MEDS ORDERED: SODIUM CHLORIDE 250 ML IV PRN (10:05)
[2021-07-22] MEDS: APIXABAN 5 MG TABLET PO SCH (10:41)
[2021-07-22 11:20] LABS: BASO % 0.6 % (0-2.0); EOS % 10.7 % (0-4.5); HEMATOCRIT 29.2 % (32.4-45.2); HEMOGLOBIN 9.5 GM/dL (10.7-15.3); LYMPH % 21.7 % (8-40); MCH 26.1 pg (25.7-33.7); MCHC 32.7 g/dl (32.0-36.0); MEAN CELL VOLUME 80.1 fl (80-96); MEAN PLT VOLUME 9.7 fl (7.5-11.1); MONO % 8.4 % (3.8-10.2); NEUT % 58.6 % (42.8-82.8); PLATELET COUNT 181 10^3/uL (134-434); RBC 3.64 M/mm3 (3.60-5.2); WHITE BLOOD COUNT 7.3 K/mm3 (4.0-10.0)
[2021-07-22 11:44] LABS: ALBUMIN 3.1 g/dl (3.4-5.0); CALCIUM 9.4 mg/dL (8.5-10.1)
[2021-07-22 11:45] LABS: MAGNESIUM 2.2 mg/dL (1.8-2.4)
[2021-07-22 11:46] LABS: BLOOD UREA NITROGEN 26.8 mg/dL (7-18)
[2021-07-22 11:47] LABS: CREATININE 6.7 mg/dL (0.55-1.3); PHOSPHOROUS 3.7 mg/dL (2.5-4.9)
[2021-07-22 11:49] LABS: BILIRUBIN,TOTAL 0.3 mg/dL (0.2-1)
[2021-07-22] MEDS ORDERED: cefTRIAXone SODIUM 1 GM VIAL ONE (16:13)
[2021-07-22] MEDS ORDERED: DEXTROSE 5%-WATER - 50 ML IVPB ONE (16:14)
[2021-07-22] MEDS: CEFTRIAXONE 1 GM in DEXTROSE 5%-WATER - 50 ML IVPB SCH (16:17)
[2021-07-23] MEDS: BUDESONIDE/FORMETEROL FUMARATE 160/4.5 mcg INHALER IH SCH ×3 (00:17→21:21)
[2021-07-23] MEDS: SACUBITRIL/VALSARTAN 24 MG-26 MG TABLET PO SCH ×3 (00:17→21:21)
[2021-07-23] MEDS: ATORVASTATIN CA 40 MG TABLET (FP) PO SCH ×2 (00:17→21:20)
[2021-07-23] MEDS: CARVEDILOL 25 MG TABLET (FP) PO SCH ×3 (00:17→21:20)
[2021-07-23 10:04] LABS: BASO % 0.8 % (0-2.0); EOS % 8.3 % (0-4.5); HEMATOCRIT 28.1 % (32.4-45.2); HEMOGLOBIN 8.9 GM/dL (10.7-15.3); LYMPH % 23.9 % (8-40); MCH 25.5 pg (25.7-33.7); MCHC 31.7 g/dl (32.0-36.0); MEAN CELL VOLUME 80.2 fl (80-96); MEAN PLT VOLUME 9.8 fl (7.5-11.1); MONO % 7.7 % (3.8-10.2); NEUT % 59.3 % (42.8-82.8); PLATELET COUNT 180 10^3/uL (134-434)
[2021-07-23] MEDS ORDERED: EPOETIN ALFA-EPBX 10,000 UNIT/ML VIAL SQ ONE ×2 (10:05→16:01)
[2021-07-23] MEDS ORDERED: cefTRIAXone SODIUM 1 GM VIAL ONE (10:30)
[2021-07-23] MEDS ORDERED: DEXTROSE 5%-WATER - 50 ML IVPB ONE (10:30)
[2021-07-23] MEDS: SEVELAMER CARBONATE 800 MG TAB (FP) PO SCH ×3 (10:51→18:57)
[2021-07-23] MEDS: CEFTRIAXONE 1 GM in DEXTROSE 5%-WATER - 50 ML IVPB SCH (10:53)
[2021-07-23] MEDS: CHOLECALCIFEROL (VIT D3) 1,000 UNIT (25 MCG) TABLET PO SCH (10:53)
[2021-07-23] MEDS: VITAMIN B COMP W-C 1 EA TABLET (NEPHRO-VITE) PO SCH (10:53)
[2021-07-23] MEDS: FAMOTIDINE 20 MG TABLET PO SCH (10:53)
[2021-07-23 11:59] LABS: CHLORIDE 107 mmol/L (98-107); SODIUM 143 mmol/L (136-145)
[2021-07-23 12:06] LABS: ALBUMIN 2.9 g/dl (3.4-5.0); ANION GAP 8 MMOL/L (8-16); BLOOD UREA NITROGEN 43.7 mg/dL (7-18); CALCIUM 9.4 mg/dL (8.5-10.1); CO2 28 mmol/L (21-32); GLUCOSE,RANDOM 88 mg/dL (74-106); MAGNESIUM 2.4 mg/dL (1.8-2.4)
[2021-07-23 12:08] LABS: PHOSPHOROUS 4.1 mg/dL (2.5-4.9); SGPT/ALT 23 U/L (13-61)
[2021-07-23 12:09] LABS: BILIRUBIN,TOTAL 0.3 mg/dL (0.2-1); SGOT/AST 14 U/L (15-37); TOT PROT 6.5 g/dl (6.4-8.2)
[2021-07-23 12:11] LABS: ALK PHOS 104 U/L (45-117); CREATININE 9.1 mg/dL (0.55-1.3)
[2021-07-23] MEDS ORDERED: LIDOCAINE HCL 2% 100 MG/5 ML DISP.SYRIN ONE (14:18)
[2021-07-23] MEDS ORDERED: DEXAMETHASONE SOD PHOSPHATE 4 MG/1 ML VIAL ONE (14:18)
[2021-07-23] MEDS ORDERED: PROPOFOL 20 ML ONE (14:19)
[2021-07-23] MEDS ORDERED: MIDAZOLAM HCL 2 MG/2 ML SINGLE DOSE VIAL ONE ×2 (14:20→14:22)
[2021-07-23] MEDS ORDERED: FENTANYL CITRATE/PF 50 MCG/ML VIAL ONE ×3 (14:20→14:23)
[2021-07-23] MEDS ORDERED: ceFAZolin SODIUM 1 GM VIAL ONE (14:35)
[2021-07-23] MEDS ORDERED: ceFAZolin SODIUM 1 GM VIAL IVPB ONE (14:40)
[2021-07-23] MEDS ORDERED: SODIUM CHLORIDE 1,000 ML IV SCH ×2 (15:15→16:01)
[2021-07-23] MEDS ORDERED: FENTANYL CITRATE/PF 50 MCG/ML VIAL IVPUSH PRN ×2 (15:29→16:01)
[2021-07-23] MEDS ORDERED: SODIUM CHLORIDE 250 ML IV PRN (16:01)
[2021-07-24] MEDS: SEVELAMER CARBONATE 800 MG TAB (FP) PO SCH ×3 (08:57→16:48)
[2021-07-24] MEDS ORDERED: cefTRIAXone SODIUM 1 GM VIAL ONE (09:28)
[2021-07-24] MEDS ORDERED: DEXTROSE 5%-WATER - 50 ML IVPB ONE (09:29)
[2021-07-24] MEDS: CEFTRIAXONE 1 GM in DEXTROSE 5%-WATER - 50 ML IVPB SCH (10:03)
[2021-07-24] MEDS: FAMOTIDINE 20 MG TABLET PO SCH (10:04)
[2021-07-24] MEDS: CHOLECALCIFEROL (VIT D3) 1,000 UNIT (25 MCG) TABLET PO SCH (10:05)
[2021-07-24] MEDS: VITAMIN B COMP W-C 1 EA TABLET (NEPHRO-VITE) PO SCH (10:05)
[2021-07-24] MEDS: SACUBITRIL/VALSARTAN 24 MG-26 MG TABLET PO SCH ×2 (10:05→22:32)
[2021-07-24] MEDS: CARVEDILOL 25 MG TABLET (FP) PO SCH ×2 (10:06→22:32)
[2021-07-24] MEDS: BUDESONIDE/FORMETEROL FUMARATE 160/4.5 mcg INHALER IH SCH ×2 (10:06→22:32)
[2021-07-24 10:18] LABS: BLOOD UREA NITROGEN 22.4 mg/dL (7-18); CALCIUM 8.7 mg/dL (8.5-10.1)
[2021-07-24 10:20] LABS: CREATININE 6.4 mg/dL (0.55-1.3)
[2021-07-24 10:24] LABS: BILIRUBIN,TOTAL 0.5 mg/dL (0.2-1)
[2021-07-24] MEDS: ATORVASTATIN CA 40 MG TABLET (FP) PO SCH (22:32)
[2021-07-25] MEDS: SEVELAMER CARBONATE 800 MG TAB (FP) PO SCH ×3 (08:13→17:05)
[2021-07-25 09:48] LABS: CHLORIDE 106 mmol/L (98-107); SODIUM 145 mmol/L (136-145)
[2021-07-25 09:54] LABS: ALBUMIN 2.8 g/dl (3.4-5.0); ANION GAP 9 MMOL/L (8-16); BLOOD UREA NITROGEN 34.9 mg/dL (7-18); CO2 30 mmol/L (21-32); GLUCOSE,RANDOM 102 mg/dL (74-106)
[2021-07-25 09:56] LABS: SGOT/AST 14 U/L (15-37); SGPT/ALT 12 U/L (13-61)
[2021-07-25 09:58] LABS: BILIRUBIN,TOTAL 0.4 mg/dL (0.2-1); TOT PROT 6.8 g/dl (6.4-8.2)
[2021-07-25 09:59] LABS: ALK PHOS 103 U/L (45-117)
[2021-07-25 10:21] LABS: CREATININE 9.1 mg/dL (0.55-1.3)
[2021-07-25] MEDS ORDERED: cefTRIAXone SODIUM 1 GM VIAL ONE (10:24)
[2021-07-25] MEDS ORDERED: DEXTROSE 5%-WATER - 50 ML IVPB ONE (10:24)
[2021-07-25] MEDS: CEFTRIAXONE 1 GM in DEXTROSE 5%-WATER - 50 ML IVPB SCH (10:41)
[2021-07-25] MEDS: LACTOBACILLUS ACIDOPHILUS 1 TABLET PO SCH (10:42)
[2021-07-25] MEDS: CHOLECALCIFEROL (VIT D3) 1,000 UNIT (25 MCG) TABLET PO SCH (10:42)
[2021-07-25] MEDS: VITAMIN B COMP W-C 1 EA TABLET (NEPHRO-VITE) PO SCH (10:42)
[2021-07-25] MEDS: SACUBITRIL/VALSARTAN 24 MG-26 MG TABLET PO SCH ×2 (10:42→22:30)
[2021-07-25] MEDS: FAMOTIDINE 20 MG TABLET PO SCH (10:42)
[2021-07-25] MEDS: CARVEDILOL 25 MG TABLET (FP) PO SCH ×2 (10:42→22:30)
[2021-07-25] MEDS: BUDESONIDE/FORMETEROL FUMARATE 160/4.5 mcg INHALER IH SCH ×4 (10:43→22:38)
[2021-07-25] MEDS ORDERED: SODIUM CHLORIDE 250 ML IV PRN (17:33)
[2021-07-25] MEDS ORDERED: MELATONIN 5 MG TABLETS PO ONE (21:33)
[2021-07-25] MEDS: ATORVASTATIN CA 40 MG TABLET (FP) PO SCH (22:30)
[2021-07-25] MEDS: PHENYLEPHRINE HCL/COCOA BUTTER SUPPOSITORY RC SCH ×2 (22:31→22:38)
[2021-07-25] MEDS ORDERED: ACETAMINOPHEN 325 MG TABLET (FP) PO PRN (22:53)
[2021-07-26] MEDS ORDERED: EPOETIN ALFA-EPBX 4,000 UNIT/ML VIAL IVPUSH ONE (07:30)
[2021-07-26 08:57] LABS: BASO % 0.7 % (0-2.0); EOS % 6.4 % (0-4.5); HEMATOCRIT 26.3 % (32.4-45.2); HEMOGLOBIN 8.4 GM/dL (10.7-15.3); LYMPH % 19.3 % (8-40); MCH 25.7 pg (25.7-33.7); MEAN CELL VOLUME 80.3 fl (80-96); MEAN PLT VOLUME 10.1 fl (7.5-11.1); MONO % 7.8 % (3.8-10.2); NEUT % 65.8 % (42.8-82.8); PLATELET COUNT 146 10^3/uL (134-434); RBC 3.27 M/mm3 (3.60-5.2); RDW 15.1 % (11.6-15.6); WHITE BLOOD COUNT 8.5 K/mm3 (4.0-10.0)
[2021-07-26 09:09] LABS: CHLORIDE 105 mmol/L (98-107); SODIUM 144 mmol/L (136-145)
[2021-07-26 09:53] LABS: ALBUMIN 2.7 g/dl (3.4-5.0); ANION GAP 11 MMOL/L (8-16); BLOOD UREA NITROGEN 46.2 mg/dL (7-18); CALCIUM 9.3 mg/dL (8.5-10.1); CO2 28 mmol/L (21-32); GLUCOSE,RANDOM 121 mg/dL (74-106)
[2021-07-26 09:55] LABS: SGPT/ALT 7 U/L (13-61)
[2021-07-26 09:56] LABS: SGOT/AST 10 U/L (15-37)
[2021-07-26 09:57] LABS: BILIRUBIN,TOTAL 0.3 mg/dL (0.2-1); TOT PROT 6.4 g/dl (6.4-8.2)
[2021-07-26 09:59] LABS: ALK PHOS 99 U/L (45-117)
[2021-07-26] MEDS ORDERED: DEXTROSE 5%-WATER - 50 ML IVPB ONE (13:00)
[2021-07-26] MEDS ORDERED: cefTRIAXone SODIUM 1 GM VIAL ONE (13:00)
[2021-07-26] MEDS: CEFTRIAXONE 1 GM in DEXTROSE 5%-WATER - 50 ML IVPB SCH (13:03)
[2021-07-26] MEDS: APIXABAN 5 MG TABLET PO SCH ×2 (13:04→23:05)
[2021-07-26] MEDS: LACTOBACILLUS ACIDOPHILUS 1 TABLET PO SCH (13:04)
[2021-07-26] MEDS: FAMOTIDINE 20 MG TABLET PO SCH (13:04)
[2021-07-26] MEDS: VITAMIN B COMP W-C 1 EA TABLET (NEPHRO-VITE) PO SCH (13:04)
[2021-07-26] MEDS: CARVEDILOL 25 MG TABLET (FP) PO SCH ×2 (13:04→23:05)
[2021-07-26] MEDS: BUDESONIDE/FORMETEROL FUMARATE 160/4.5 mcg INHALER IH SCH ×3 (13:05→23:29)
[2021-07-26] MEDS: SEVELAMER CARBONATE 800 MG TAB (FP) PO SCH ×3 (13:05→16:30)
[2021-07-26] MEDS: PHENYLEPHRINE HCL/COCOA BUTTER SUPPOSITORY RC SCH (13:06)
[2021-07-26] MEDS: CHOLECALCIFEROL (VIT D3) 1,000 UNIT (25 MCG) TABLET PO SCH (13:07)
[2021-07-26] MEDS: SACUBITRIL/VALSARTAN 24 MG-26 MG TABLET PO SCH ×2 (13:23→23:05)
[2021-07-26] MEDS: ATORVASTATIN CA 40 MG TABLET (FP) PO SCH (23:05)
[2021-07-27] MEDS: SEVELAMER CARBONATE 800 MG TAB (FP) PO SCH ×3 (08:35→17:20)
[2021-07-27] MEDS ORDERED: cefTRIAXone SODIUM 1 GM VIAL ONE (09:47)
[2021-07-27] MEDS ORDERED: DEXTROSE 5%-WATER - 50 ML IVPB ONE (09:47)
[2021-07-27] MEDS: CHOLECALCIFEROL (VIT D3) 1,000 UNIT (25 MCG) TABLET PO SCH (09:53)
[2021-07-27] MEDS: FAMOTIDINE 20 MG TABLET PO SCH (09:53)
[2021-07-27] MEDS: CARVEDILOL 25 MG TABLET (FP) PO SCH ×2 (09:53→21:32)
[2021-07-27] MEDS: APIXABAN 5 MG TABLET PO SCH ×2 (09:53→21:32)
[2021-07-27] MEDS: LACTOBACILLUS ACIDOPHILUS 1 TABLET PO SCH (09:53)
[2021-07-27] MEDS: VITAMIN B COMP W-C 1 EA TABLET (NEPHRO-VITE) PO SCH (09:54)
[2021-07-27] MEDS: SACUBITRIL/VALSARTAN 24 MG-26 MG TABLET PO SCH ×2 (09:54→23:24)
[2021-07-27] MEDS: CEFTRIAXONE 1 GM in DEXTROSE 5%-WATER - 50 ML IVPB SCH (10:00)
[2021-07-27] MEDS: PHENYLEPHRINE HCL/COCOA BUTTER SUPPOSITORY RC SCH (10:00)
[2021-07-27] MEDS: BUDESONIDE/FORMETEROL FUMARATE 160/4.5 mcg INHALER IH SCH ×2 (10:00→21:40)
[2021-07-27 13:46] LABS: HEMATOCRIT 31.8 % (32.4-45.2); MCH 25.2 pg (25.7-33.7); MCHC 31.3 g/dl (32.0-36.0); MEAN CELL VOLUME 80.5 fl (80-96); MEAN PLT VOLUME 9.6 fl (7.5-11.1); PLATELET COUNT 178 10^3/uL (134-434); RBC 3.96 M/mm3 (3.60-5.2); RDW 15.2 % (11.6-15.6); WHITE BLOOD COUNT 8.8 K/mm3 (4.0-10.0)
[2021-07-27] MEDS: ATORVASTATIN CA 40 MG TABLET (FP) PO SCH (21:32)
[2021-07-28] MEDS: SEVELAMER CARBONATE 800 MG TAB (FP) PO SCH ×3 (08:17→17:39)
[2021-07-28] MEDS ORDERED: SODIUM CHLORIDE 250 ML IV PRN (08:43)
[2021-07-28] MEDS ORDERED: HEPARIN NA (PORCINE) 5,000 UNITS/ML 1ML VIAL IVPUSH ONE (08:45)
[2021-07-28 09:05] LABS: HEMATOCRIT 26.7 % (32.4-45.2); HEMOGLOBIN 8.4 GM/dL (10.7-15.3); MCH 25.1 pg (25.7-33.7); MCHC 31.3 g/dl (32.0-36.0); MEAN CELL VOLUME 80.3 fl (80-96); MEAN PLT VOLUME 9.7 fl (7.5-11.1); PLATELET COUNT 145 10^3/uL (134-434); RBC 3.32 M/mm3 (3.60-5.2); RDW 15.1 % (11.6-15.6); WHITE BLOOD COUNT 8.3 K/mm3 (4.0-10.0)
[2021-07-28 09:09] LABS: CHLORIDE 103 mmol/L (98-107); SODIUM 142 mmol/L (136-145)
[2021-07-28 09:11] LABS: CALCIUM 8.6 mg/dL (8.5-10.1)
[2021-07-28 09:12] LABS: ALBUMIN 2.5 g/dl (3.4-5.0); ANION GAP 8 MMOL/L (8-16); BLOOD UREA NITROGEN 31.8 mg/dL (7-18); CO2 31 mmol/L (21-32); GLUCOSE,RANDOM 181 mg/dL (74-106)
[2021-07-28 09:15] LABS: PHOSPHOROUS 3.2 mg/dL (2.5-4.9); SGOT/AST 9 U/L (15-37); SGPT/ALT 8 U/L (13-61)
[2021-07-28] MEDS ORDERED: EPOETIN ALFA-EPBX 10,000 UNIT/ML VIAL SQ ONE (09:15)
[2021-07-28 09:16] LABS: BILIRUBIN,TOTAL 0.3 mg/dL (0.2-1)
[2021-07-28 09:17] LABS: TOT PROT 5.9 g/dl (6.4-8.2)
[2021-07-28 09:18] LABS: ALK PHOS 95 U/L (45-117)
[2021-07-28 09:19] LABS: CREATININE 8.2 mg/dL (0.55-1.3)
[2021-07-28] MEDS: CARVEDILOL 25 MG TABLET (FP) PO SCH (12:35)
[2021-07-28] MEDS: SACUBITRIL/VALSARTAN 24 MG-26 MG TABLET PO SCH (12:35)
[2021-07-28] MEDS: CHOLECALCIFEROL (VIT D3) 1,000 UNIT (25 MCG) TABLET PO SCH (12:35)
[2021-07-28] MEDS: VITAMIN B COMP W-C 1 EA TABLET (NEPHRO-VITE) PO SCH (12:35)
[2021-07-28] MEDS: FAMOTIDINE 20 MG TABLET PO SCH (12:36)
[2021-07-28] MEDS: APIXABAN 5 MG TABLET PO SCH (12:36)
[2021-07-28] MEDS: LACTOBACILLUS ACIDOPHILUS 1 TABLET PO SCH (12:36)
[2021-07-28] MEDS: PHENYLEPHRINE HCL/COCOA BUTTER SUPPOSITORY RC SCH (12:37)
[2021-07-28] MEDS: BUDESONIDE/FORMETEROL FUMARATE 160/4.5 mcg INHALER IH SCH (12:39)
[2021-07-28 13:34] VITALS: BP 126/73; PULSE 71; TEMP 98.2
== END 2021-07-28 17:54 | disposition home or self-care (01) | DRG 662 ==
LOC: JER 17:12 → JERBED 22:03 → J5S 23:53
PROVIDERS: ADMIT Hospitalist; ATTEND Internal Medicine
PROC: 0W3R8ZZ Control Bleeding in Genitourinary Tract, Via Natural or Artificial Opening Endoscopic (ICD-10-PCS; 2021-07-23)
PROC: 5A1D70Z Performance of Urinary Filtration, Intermittent, Less than 6 Hours Per Day (ICD-10-PCS; 2021-07-23)
PROC: 0TBB8ZZ Excision of Bladder, Via Natural or Artificial Opening Endoscopic (ICD-10-PCS; principal; 2021-07-23 14:00)
DX: C67.9 Malignant neoplasm of bladder, unspecified (principal); N18.6 End stage renal disease; I13.2 Hypertensive heart and chronic kidney disease with heart failure and with stage 5 chronic kidney disease, or end stage renal disease; I50.42 Chronic combined systolic (congestive) and diastolic (congestive) heart failure; D62 Acute posthemorrhagic anemia; N39.0 Urinary tract infection, site not specified; J44.9 Chronic obstructive pulmonary disease, unspecified; Z99.2 Dependence on renal dialysis; G40.909 Epilepsy, unspecified, not intractable, without status epilepticus; D64.9 Anemia, unspecified; N28.1 Cyst of kidney, acquired; R07.9 Chest pain, unspecified
CPT/HCPCS: 0241U-QW; 36415; 74176-TC; 80048; 80053; 81003; 83690; 83735; 84100; 85025; 85027; 85610; 85730; 86850; 86900; 86901; 87086; 88307-TC; 93005; 93010; 94760; 99285-25; J1644; Q5106

== ENCOUNTER 2021-09-24 17:20 | Emergency (ER) | payer OTHER ==
[2021-09-24 17:27] VITALS: BMI 21.7
[2021-09-24 19:32] LABS: EOS % 10.7 % (0-4.5); HEMATOCRIT 39.5 % (32.4-45.2); HEMOGLOBIN 12.5 GM/dL (10.7-15.3); LYMPH % 33.7 % (8-40); MCH 25.1 pg (25.7-33.7); MCHC 31.7 g/dl (32.0-36.0); MEAN CELL VOLUME 79.2 fl (80-96); MEAN PLT VOLUME 9.9 fl (7.5-11.1); MONO % 8.1 % (3.8-10.2); NEUT % 46.5 % (42.8-82.8); PLATELET COUNT 216 10^3/uL (134-434); RBC 4.99 M/mm3 (3.60-5.2); RDW 14.3 % (11.6-15.6)
[2021-09-24 19:51] LABS: CHLORIDE 101 mmol/L (98-107); SODIUM 141 mmol/L (136-145)
[2021-09-24 19:53] LABS: CALCIUM 9.4 mg/dL (8.5-10.1)
[2021-09-24 19:54] LABS: ALBUMIN 3.7 g/dl (3.4-5.0); ANION GAP 12 MMOL/L (8-16); BLOOD UREA NITROGEN 39.1 mg/dL (7-18); CO2 29 mmol/L (21-32); GLUCOSE,RANDOM 79 mg/dL (74-106); MAGNESIUM 2.6 mg/dL (1.8-2.4)
[2021-09-24 19:56] LABS: SGPT/ALT 26 U/L (13-61)
[2021-09-24 19:57] LABS: PHOSPHOROUS 5.4 mg/dL (2.5-4.9); SGOT/AST 22 U/L (15-37)
[2021-09-24 19:58] LABS: BILIRUBIN,TOTAL 0.4 mg/dL (0.2-1); TOT PROT 8.2 g/dl (6.4-8.2)
[2021-09-24 19:59] LABS: ALK PHOS 131 U/L (45-117)
[2021-09-24 20:03] LABS: CREATININE 11.2 mg/dL (0.55-1.3)
[2021-09-24 23:01] VITALS: RESP 20
[2021-09-25 00:43] VITALS: BP 151/103; PULSE 82; TEMP 97.9
== END 2021-09-25 00:43 | disposition short-term general hospital (02) ==
LOC: JER 17:20
DX: T82.898A Other specified complication of vascular prosthetic devices, implants and grafts, initial encounter (principal)
CPT/HCPCS: 36415; 80053; 83735; 84100; 85025; 99283-25; C9803-CS; U0003; U0005

== ENCOUNTER 2021-10-07 07:33 | Inpatient (IN) | payer OTHER ==
[2021-10-07 09:28] LABS: BASO % 0.6 % (0-2.0); EOS % 8.8 % (0-4.5); HEMATOCRIT 36.2 % (32.4-45.2); LYMPH % 17.5 % (8-40); MCHC 33.2 g/dl (32.0-36.0); MEAN CELL VOLUME 78.3 fl (80-96); MEAN PLT VOLUME 9.3 fl (7.5-11.1); MONO % 7.6 % (3.8-10.2); NEUT % 65.5 % (42.8-82.8); PLATELET COUNT 187 10^3/uL (134-434); RBC 4.62 M/mm3 (3.60-5.2); RDW 14.1 % (11.6-15.6); WHITE BLOOD COUNT 10.6 K/mm3 (4.0-10.0)
[2021-10-07 09:44] LABS: CHLORIDE 96 mmol/L (98-107); SODIUM 137 mmol/L (136-145)
[2021-10-07 09:48] LABS: CALCIUM 9.3 mg/dL (8.5-10.1)
[2021-10-07 09:49] LABS: ALBUMIN 3.3 g/dl (3.4-5.0); BLOOD UREA NITROGEN 49.6 mg/dL (7-18); CO2 28 mmol/L (21-32); GLUCOSE,RANDOM 98 mg/dL (74-106)
[2021-10-07 09:52] LABS: SGOT/AST 54 U/L (15-37); SGPT/ALT 34 U/L (13-61)
[2021-10-07 09:53] LABS: BILIRUBIN,TOTAL 0.5 mg/dL (0.2-1)
[2021-10-07 09:55] LABS: ALK PHOS 134 U/L (45-117); ANION GAP 13 MMOL/L (8-16)
[2021-10-07 10:20] LABS: ACTIVATED PTT 31.7 SECONDS (25.2-36.5); INR 1.06 (0.83-1.09); PROTHROMBIN TIME (PATIENT) 12.2 SEC (9.7-13.0)
[2021-10-07] MEDS ORDERED: DOCUSATE SODIUM 100 MG CAPSULE (FP) PO PRN ×2 (11:54→19:01)
[2021-10-07] MEDS ORDERED: ACETAMINOPHEN 325 MG TABLET (FP) PO PRN ×2 (11:54→19:01)
[2021-10-07] MEDS ORDERED: SENNOSIDES 8.6MG TABLET (FP) PO PRN ×2 (11:54→19:01)
[2021-10-07 12:26] LABS: CHLORIDE 97 mmol/L (98-107); SODIUM 140 mmol/L (136-145)
[2021-10-07 12:28] LABS: CALCIUM 9.4 mg/dL (8.5-10.1); GLUCOSE,RANDOM 89 mg/dL (74-106)
[2021-10-07 12:29] LABS: ALBUMIN 3.2 g/dl (3.4-5.0); ANION GAP 11 MMOL/L (8-16); BLOOD UREA NITROGEN 49.6 mg/dL (7-18); CO2 32 mmol/L (21-32)
[2021-10-07 12:31] LABS: SGOT/AST 14 U/L (15-37); SGPT/ALT 28 U/L (13-61)
[2021-10-07 12:33] LABS: BILIRUBIN,TOTAL 0.4 mg/dL (0.2-1); TOT PROT 7.2 g/dl (6.4-8.2)
[2021-10-07 12:34] LABS: ALK PHOS 131 U/L (45-117)
[2021-10-07 12:35] LABS: CREATININE 12.2 mg/dL (0.55-1.3)
[2021-10-07] MEDS ORDERED: PROMETHAZINE HCL 25 MG/1 ML VIAL IVPUSH PRN (13:51)
[2021-10-07] MEDS ORDERED: ONDANSETRON 4 MG/2 ML VIAL IVPUSH PRN ×2 (13:51→19:01)
[2021-10-07] MEDS ORDERED: SODIUM CHLORIDE 1,000 ML IV SCH (14:00)
[2021-10-07] MEDS ORDERED: SEVELAMER CARBONATE 800 MG TAB (FP) PO SCH (14:00)
[2021-10-07] MEDS ORDERED: SODIUM CHLORIDE 250 ML IV PRN (14:19)
[2021-10-07 15:33] VITALS: BMI 20.6
[2021-10-07] MEDS ORDERED: HEPARIN NA (PORCINE) 5,000 UNITS/ML 1ML VIAL ONE (16:22)
[2021-10-07] MEDS ORDERED: LIDOCAINE HCL 1%, 10 MG/ML (20ML VIAL) ONE (16:22)
[2021-10-07] MEDS ORDERED: MIDAZOLAM HCL 2 MG/2 ML SINGLE DOSE VIAL ONE (17:31)
[2021-10-07] MEDS ORDERED: PROPOFOL 20 ML ONE (17:31)
[2021-10-07] MEDS ORDERED: LIDOCAINE HCL/PF 2% SDV 5ML VIAL ONE (17:35)
[2021-10-07] MEDS ORDERED: ONDANSETRON 4 MG/2 ML VIAL ONE (17:41)
[2021-10-07] MEDS ORDERED: CLINDAMYCIN 600 MG PREMIX BAG IVPB ONE (17:50)
[2021-10-07] MEDS ORDERED: LIDOCAINE HCL 1%, 10 MG/ML (20ML VIAL) NR ONE ×2 (17:53)
[2021-10-07] MEDS ORDERED: POVIDONE-IODINE OINTMENT 10% - 28.4 GM TUBE ONE (18:39)
[2021-10-07] MEDS ORDERED: SACUBITRIL/VALSARTAN 24 MG-26 MG TABLET PO SCH (22:00)
[2021-10-07] MEDS ORDERED: CARVEDILOL 25 MG TABLET (FP) PO SCH (22:00)
[2021-10-07] MEDS ORDERED: BUDESONIDE/FORMETEROL FUMARATE 160/4.5 mcg INHALER IH SCH (22:00)
[2021-10-07] MEDS ORDERED: ATORVASTATIN CA 40 MG TABLET (FP) PO SCH ×2 (22:00)
[2021-10-07] MEDS: CARVEDILOL 25 MG TABLET (FP) PO SCH (22:14)
[2021-10-07] MEDS: SACUBITRIL/VALSARTAN 24 MG-26 MG TABLET PO SCH (22:14)
[2021-10-07] MEDS: APIXABAN 5 MG TABLET PO SCH (22:19)
[2021-10-07] MEDS: BUDESONIDE/FORMETEROL FUMARATE 160/4.5 mcg INHALER IH SCH ×2 (22:20→22:23)
[2021-10-08] MEDS ORDERED: SODIUM CHLORIDE 250 ML IV PRN (07:25)
[2021-10-08] MEDS: SEVELAMER CARBONATE 800 MG TAB (FP) PO SCH ×2 (08:10→13:52)
[2021-10-08] MEDS ORDERED: HEPARIN NA (PORCINE) 5,000 UNITS/ML 1ML VIAL IVPUSH ONE ×2 (09:00→14:19)
[2021-10-08] MEDS: HEPARIN NA (PORCINE) 5,000 UNITS/ML 1ML VIAL IVPUSH SCH ×3 (09:30→11:30)
[2021-10-08 09:41] LABS: BASO % 0.9 % (0-2.0); EOS % 11.2 % (0-4.5); HEMATOCRIT 35.1 % (32.4-45.2); HEMOGLOBIN 11.7 GM/dL (10.7-15.3); LYMPH % 26.1 % (8-40); MCH 26.1 pg (25.7-33.7); MCHC 33.2 g/dl (32.0-36.0); MEAN CELL VOLUME 78.8 fl (80-96); MEAN PLT VOLUME 9.6 fl (7.5-11.1); MONO % 4.8 % (3.8-10.2); PLATELET COUNT 193 10^3/uL (134-434); RBC 4.46 M/mm3 (3.60-5.2); RDW 13.8 % (11.6-15.6); WHITE BLOOD COUNT 8.4 K/mm3 (4.0-10.0)
[2021-10-08 09:54] LABS: CHLORIDE 100 mmol/L (98-107); SODIUM 141 mmol/L (136-145)
[2021-10-08] MEDS ORDERED: FAMOTIDINE 10 MG TABLET PO SCH ×2 (10:00)
[2021-10-08 10:02] LABS: ALBUMIN 3.1 g/dl (3.4-5.0); ANION GAP 13 MMOL/L (8-16); CO2 28 mmol/L (21-32); GLUCOSE,RANDOM 115 mg/dL (74-106); MAGNESIUM 2.7 mg/dL (1.8-2.4)
[2021-10-08 10:04] LABS: PHOSPHOROUS 7.6 mg/dL (2.5-4.9)
[2021-10-08 10:05] LABS: SGOT/AST 11 U/L (15-37)
[2021-10-08 10:06] LABS: BILIRUBIN,TOTAL 0.4 mg/dL (0.2-1); SGPT/ALT 23 U/L (13-61)
[2021-10-08 10:07] LABS: ALK PHOS 125 U/L (45-117); CREATININE 13.6 mg/dL (0.55-1.3)
[2021-10-08 10:38] LABS: HEMATOCRIT 31.7 % (32.4-45.2); HEMOGLOBIN 10.5 GM/dL (10.7-15.3); MCH 25.9 pg (25.7-33.7); MCHC 33.1 g/dl (32.0-36.0); MEAN CELL VOLUME 78.2 fl (80-96); MEAN PLT VOLUME 9.7 fl (7.5-11.1); PLATELET COUNT 179 10^3/uL (134-434); RBC 4.05 M/mm3 (3.60-5.2); RDW 13.6 % (11.6-15.6); WHITE BLOOD COUNT 8.2 K/mm3 (4.0-10.0)
[2021-10-08 12:33] LABS: ANION GAP 14 MMOL/L (8-16); BLOOD UREA NITROGEN 63.4 mg/dL (7-18); CALCIUM 8.7 mg/dL (8.5-10.1); CHLORIDE 101 mmol/L (98-107); CO2 27 mmol/L (21-32); CREATININE 13.6 mg/dL (0.55-1.3); GLUCOSE,RANDOM 149 mg/dL (74-106); SODIUM 142 mmol/L (136-145)
[2021-10-08] MEDS: SACUBITRIL/VALSARTAN 24 MG-26 MG TABLET PO SCH (13:53)
[2021-10-08] MEDS: CARVEDILOL 25 MG TABLET (FP) PO SCH (13:53)
[2021-10-08] MEDS: BUDESONIDE/FORMETEROL FUMARATE 160/4.5 mcg INHALER IH SCH (13:54)
[2021-10-08] MEDS ORDERED: APIXABAN 5 MG TABLET PO SCH (14:30)
[2021-10-08] MEDS ORDERED: HEPARIN NA (PORCINE) 5,000 UNITS/ML 1ML VIAL IVPUSH SCH (14:30)
[2021-10-08] MEDS: APIXABAN 5 MG TABLET PO SCH (14:48)
[2021-10-08 16:06] VITALS: BP 131/67; PULSE 73; RESP 20; TEMP 97.8
== END 2021-10-08 17:34 | disposition home or self-care (01) | DRG 182 ==
LOC: JER 07:33 → JERBED 09:42 → OBSVTOIN 11:54 → J8W 14:36
PROVIDERS: ADMIT Internal Medicine; ATTEND Internal Medicine
PROC: 3E05017 Introduction of Other Thrombolytic into Peripheral Artery, Open Approach (ICD-10-PCS; 2021-10-07)
PROC: B30HZZZ Plain Radiography of Right Upper Extremity Arteries (ICD-10-PCS; 2021-10-07)
PROC: 03CY0ZZ Extirpation of Matter from Upper Artery, Open Approach (ICD-10-PCS; principal; 2021-10-07 17:30)
PROC: 5A1D70Z Performance of Urinary Filtration, Intermittent, Less than 6 Hours Per Day (ICD-10-PCS; 2021-10-08)
DX: T82.590A Other mechanical complication of surgically created arteriovenous fistula, initial encounter (principal); Y83.9 Surgical procedure, unspecified as the cause of abnormal reaction of the patient, or of later complication, without mention of misadventure at the time of the procedure; I50.43 Acute on chronic combined systolic (congestive) and diastolic (congestive) heart failure; I13.2 Hypertensive heart and chronic kidney disease with heart failure and with stage 5 chronic kidney disease, or end stage renal disease; N18.6 End stage renal disease; Z99.2 Dependence on renal dialysis; E78.00 Pure hypercholesterolemia, unspecified; F17.210 Nicotine dependence, cigarettes, uncomplicated
CPT/HCPCS: 36415; 76000-TC-FY; 80048; 80053; 83735; 84100; 85025; 85027; 85610; 85730; 86803; 86850; 86900; 86901; 87340; 87522; 93005; 93010; 94760; 99285-25; C9803-CS; G0378; J1644; U0003; U0005

== ENCOUNTER 2021-10-09 13:21 | Emergency (ER) | payer OTHER ==
[2021-10-09 13:28] VITALS: BP 108/74; PULSE 81; RESP 18; TEMP 97.8; BMI 20.9
== END 2021-10-09 14:09 | disposition home or self-care (01) ==
LOC: JER 13:21
DX: I77.0 Arteriovenous fistula, acquired (principal); T82.838A Hemorrhage due to vascular prosthetic devices, implants and grafts, initial encounter
CPT/HCPCS: 99281-25

== ENCOUNTER 2022-10-01 15:56 | Observation (INO) | payer OTHER ==
[2022-10-01 17:28] LABS: URINE APPEARANCE TURBID; URINE COLOR RED
[2022-10-01 17:37] LABS: URINE BILIRUBIN NEGATIVE (NEGATIVE); URINE GLUCOSE (UA) NEGATIVE (NEGATIVE)
[2022-10-01 17:38] LABS: URINE PROTEIN 4+ (NEGATIVE); URINE UROBILINOGEN 0.2 mg/dL (0.2-1.0)
[2022-10-01 17:39] LABS: URINE RBC TMTC /uL (0-23.9); URINE WBC 0-5 /uL (0-25.8)
[2022-10-01 17:40] LABS: URINE BACTERIA 1+ /uL (0-1359)
[2022-10-01 18:07] LABS: BASO % 0.7 % (0-2.0); HEMATOCRIT 40.5 % (32.4-45.2); HEMOGLOBIN 12.5 GM/dL (10.7-15.3); LYMPH % 24.7 % (8-40); MCHC 30.8 g/dl (32.0-36.0); MEAN CELL VOLUME 84.4 fl (80-96); MEAN PLT VOLUME 9.5 fl (7.5-11.1); MONO % 10.1 % (3.8-10.2); NEUT % 53.5 % (42.8-82.8); PLATELET COUNT 150 10^3/uL (134-434); RDW 21.9 % (11.6-15.6); WHITE BLOOD COUNT 6.6 K/mm3 (4.0-10.0)
[2022-10-01 18:14] LABS: INR 1.39 (0.83-1.09); PROTHROMBIN TIME (PATIENT) 16.1 SEC (9.7-13.0)
[2022-10-01 18:16] LABS: ACTIVATED PTT 32.1 SECONDS (25.2-36.5)
[2022-10-01 18:31] LABS: ANISOCYTOSIS 1+; MACROCYTOSIS 0
[2022-10-01 18:44] LABS: POTASSIUM 4.5 mmol/L (3.5-5.1)
[2022-10-01 18:46] LABS: CALCIUM 10.2 mg/dL (8.5-10.1)
[2022-10-01 18:47] LABS: ALBUMIN 3.3 g/dl (3.4-5.0); BLOOD UREA NITROGEN 30.2 mg/dL (7-18)
[2022-10-01 18:51] LABS: BILIRUBIN,TOTAL 0.5 mg/dL (0.2-1); TOT PROT 7.7 g/dl (6.4-8.2)
[2022-10-01 18:58] LABS: CREATININE 7.4 mg/dL (0.55-1.3)
[2022-10-01] MEDS ORDERED: SODIUM CHLORIDE 500 ML IV STA (20:11)
[2022-10-01] MEDS ORDERED: SACUBITRIL/VALSARTAN 24 MG-26 MG TABLET PO SCH (22:00)
[2022-10-01 23:27] VITALS: RESP 18
[2022-10-01 23:59] LABS: BASO % 0.9 % (0-2.0); EOS % 10.8 % (0-4.5); HEMATOCRIT 36.8 % (32.4-45.2); HEMOGLOBIN 11.6 GM/dL (10.7-15.3); LYMPH % 30.7 % (8-40); MCH 26.1 pg (25.7-33.7); MCHC 31.5 g/dl (32.0-36.0); MEAN CELL VOLUME 82.9 fl (80-96); MEAN PLT VOLUME 9.6 fl (7.5-11.1); MONO % 10.9 % (3.8-10.2); NEUT % 46.7 % (42.8-82.8); PLATELET COUNT 145 10^3/uL (134-434); RBC 4.44 M/mm3 (3.60-5.2); RDW 21.7 % (11.6-15.6); WHITE BLOOD COUNT 6.9 K/mm3 (4.0-10.0)
[2022-10-02] MEDS: CARVEDILOL 25 MG TABLET (FP) PO SCH ×3 (00:02→21:20)
[2022-10-02] MEDS: ATORVASTATIN CA 40 MG TABLET (FP) PO SCH ×2 (00:02→21:20)
[2022-10-02 09:56] LABS: BASO % 0.6 % (0-2.0); EOS % 11.2 % (0-4.5); HEMATOCRIT 39.1 % (32.4-45.2); HEMOGLOBIN 12.2 GM/dL (10.7-15.3); LYMPH % 26.9 % (8-40); MCH 25.7 pg (25.7-33.7); MCHC 31.1 g/dl (32.0-36.0); MEAN CELL VOLUME 82.4 fl (80-96); MEAN PLT VOLUME 9.8 fl (7.5-11.1); MONO % 9.2 % (3.8-10.2); NEUT % 52.1 % (42.8-82.8); PLATELET COUNT 130 10^3/uL (134-434); RBC 4.75 M/mm3 (3.60-5.2); RDW 21.9 % (11.6-15.6); WHITE BLOOD COUNT 6.7 K/mm3 (4.0-10.0)
[2022-10-02 10:05] LABS: INR 1.22 (0.83-1.09); PROTHROMBIN TIME (PATIENT) 14.1 SEC (9.7-13.0)
[2022-10-02 10:07] LABS: ACTIVATED PTT 31.2 SECONDS (25.2-36.5)
[2022-10-02] MEDS: FAMOTIDINE 10 MG TABLET PO SCH ×2 (10:13→10:17)
[2022-10-02] MEDS: BUDESONIDE/FORMETEROL FUMARATE 160/4.5 mcg INHALER IH SCH ×3 (10:14→21:21)
[2022-10-02 10:38] LABS: MAGNESIUM 2.2 mg/dL (1.8-2.4)
[2022-10-02 10:40] LABS: PHOSPHOROUS 3.8 mg/dL (2.5-4.9)
[2022-10-02] MEDS ORDERED: SODIUM CHLORIDE 250 ML IV PRN (12:41)
[2022-10-02 12:42] VITALS: BMI 16.5
[2022-10-03] MEDS: AMINO ACIDS/PROTEIN HYDROLYS 30 ML LIQUID.PKT PO SCH ×3 (04:51→17:01)
[2022-10-03] MEDS: BUDESONIDE/FORMETEROL FUMARATE 160/4.5 mcg INHALER IH SCH (10:31)
[2022-10-03] MEDS: FAMOTIDINE 10 MG TABLET PO SCH (10:31)
[2022-10-03] MEDS: CARVEDILOL 25 MG TABLET (FP) PO SCH (10:32)
[2022-10-03 12:32] LABS: HEMATOCRIT 36.9 % (32.4-45.2); HEMOGLOBIN 11.3 GM/dL (10.7-15.3); MCH 25.8 pg (25.7-33.7); MCHC 30.5 g/dl (32.0-36.0); MEAN CELL VOLUME 84.5 fl (80-96); MEAN PLT VOLUME 10.7 fl (7.5-11.1); PLATELET COUNT 157 10^3/uL (134-434); RBC 4.37 M/mm3 (3.60-5.2); RDW 21.2 % (11.6-15.6); WHITE BLOOD COUNT 7.4 K/mm3 (4.0-10.0)
[2022-10-03] MEDS ORDERED: HEPARIN NA (PORCINE) 5,000 UNITS/ML 1ML VIAL IVPUSH ONE (12:41)
[2022-10-03] MEDS ORDERED: HEPARIN NA (PORCINE) 5,000 UNITS/ML 1ML VIAL IVPUSH SCH (12:45)
[2022-10-03 13:00] LABS: CHLORIDE 112 mmol/L (98-107); POTASSIUM 4.2 mmol/L (3.5-5.1); SODIUM 146 mmol/L (136-145)
[2022-10-03 13:04] LABS: ALBUMIN 2.9 g/dl (3.4-5.0); ANION GAP 9 MMOL/L (8-16); CALCIUM 9.3 mg/dL (8.5-10.1); CO2 25 mmol/L (21-32); GLUCOSE,RANDOM 89 mg/dL (74-106)
[2022-10-03 13:07] LABS: SGOT/AST 40 U/L (15-37); SGPT/ALT 52 U/L (13-61)
[2022-10-03 13:09] LABS: BILIRUBIN,TOTAL 0.4 mg/dL (0.2-1); TOT PROT 6.7 g/dl (6.4-8.2)
[2022-10-03 13:10] LABS: ALK PHOS 152 U/L (45-117)
[2022-10-03 13:23] LABS: BLOOD UREA NITROGEN 56.4 mg/dL (7-18); CREATININE 11.4 mg/dL (0.55-1.3)
[2022-10-03 13:36] VITALS: TEMP 98
[2022-10-03 16:11] VITALS: BP 147/67; PULSE 66
[2022-10-03] MEDS ORDERED: APIXABAN 2.5 MG TABLET PO SCH (22:00)
[2022-10-04] MEDS ORDERED: VITAMIN B COMP W-C 1 EA TABLET (NEPHRO-VITE) PO SCH (10:00)
== END 2022-10-03 18:11 | disposition home health service (06) ==
LOC: JER 15:56 → JERBED 19:50 → J5S 23:41
PROVIDERS: ADMIT Internal Medicine; ATTEND Nurse Practitioner Acute Care
PROC: 3E0337Z Introduction of Electrolytic and Water Balance Substance into Peripheral Vein, Percutaneous Approach (ICD-10-PCS; principal; 2022-10-01)
DX: I13.2 Hypertensive heart and chronic kidney disease with heart failure and with stage 5 chronic kidney disease, or end stage renal disease (principal); N18.6 End stage renal disease; C67.9 Malignant neoplasm of bladder, unspecified; Z99.2 Dependence on renal dialysis; I25.10 Atherosclerotic heart disease of native coronary artery without angina pectoris; Z85.51 Personal history of malignant neoplasm of bladder; J45.909 Unspecified asthma, uncomplicated; J44.9 Chronic obstructive pulmonary disease, unspecified; Z86.19 Personal history of other infectious and parasitic diseases; F17.210 Nicotine dependence, cigarettes, uncomplicated; Z88.8 Allergy status to other drugs, medicaments and biological substances; Z88.0 Allergy status to penicillin; Z91.013 Allergy to seafood
CPT/HCPCS: 36415; 71045-TC-FY; 74176-TC; 80053; 81003; 83735; 84100; 85025; 85027; 85610; 85730; 86803; 86850; 86900; 86901; 87086; 87340; 87522; 93005; 93010; 93306-TC; 96360; 99285-25; G0378

== ENCOUNTER 2022-12-23 14:01 | Emergency (ER) | payer OTHER ==
[2022-12-23 14:16] VITALS: BP 105/64; PULSE 73; RESP 18; TEMP 97.6; BMI 20.9
[2022-12-23] MEDS ORDERED: IBUPROFEN 400 MG TABLET (FP) PO ONE ×2 (15:26→15:29)
[2022-12-23] MEDS ORDERED: ACETAMINOPHEN 325 MG TABLET (FP) PO ONE (15:26)
[2022-12-23] MEDS ORDERED: ACETAMINOPHEN 325 MG TABLET (FP) ONE (15:29)
[2022-12-23 16:40] LABS: THROAT:GRP A STREP NOT DETECTED (NOTDETECTED)
== END 2022-12-23 17:06 | disposition home or self-care (01) ==
LOC: JERFT 14:01
DX: J02.9 Acute pharyngitis, unspecified (principal); M79.10 Myalgia, unspecified site; R05.9 Cough, unspecified; R10.9 Unspecified abdominal pain; R11.0 Nausea; Z20.822 Contact with and (suspected) exposure to COVID-19
CPT/HCPCS: 0241U-QW; 87651; 99283-25

== ENCOUNTER 2023-02-03 16:43 | Inpatient (IN) | payer OTHER ==
[2023-02-03] MEDS ORDERED: ACETAMINOPHEN 500 MG TABLET (FP) PO ONE (18:05)
[2023-02-03] MEDS ORDERED: VANCOMYCIN 1,000 MG in DEXTROSE 5%-WATER - 250 ML IVPB ONE (18:33)
[2023-02-03] MEDS ORDERED: ACETAMINOPHEN 325 MG TABLET (FP) ONE (23:07)
[2023-02-03] MEDS ORDERED: VANCOMYCIN 1 GRAM (PRE-DOCKED) 1,000 MG/250 ML BAG IVPB ONE (23:07)
[2023-02-03 23:12] LABS: BASO % 0.6 % (0-2.0); EOS % 6.3 % (0-4.5); HEMATOCRIT 28.8 % (32.4-45.2); HEMOGLOBIN 8.9 GM/dL (10.7-15.3); LYMPH % 23.8 % (8-40); MCH 25.9 pg (25.7-33.7); MEAN CELL VOLUME 83.6 fl (80-96); MEAN PLT VOLUME 9.3 fl (7.5-11.1); MONO % 7.9 % (3.8-10.2); NEUT % 61.4 % (42.8-82.8); PLATELET COUNT 211 10^3/uL (134-434); RBC 3.44 M/mm3 (3.60-5.2); RDW 18.8 % (11.6-15.6); WHITE BLOOD COUNT 6.5 K/mm3 (4.0-10.0)
[2023-02-03 23:18] LABS: INR 1.58 (0.83-1.09); PROTHROMBIN TIME (PATIENT) 18.2 SEC (9.7-13.0)
[2023-02-03 23:39] LABS: CHLORIDE 107 mmol/L (98-107); POTASSIUM 4.1 mmol/L (3.5-5.1); SODIUM 143 mmol/L (136-145)
[2023-02-03 23:41] LABS: ANION GAP 8 mmol/L (4-13); BLOOD UREA NITROGEN 40.5 mg/dL (7-18); CALCIUM 9.4 mg/dL (8.5-10.1); CO2 27 mmol/L (21-32); GLUCOSE,RANDOM 161 mg/dL (74-106)
[2023-02-03 23:44] LABS: SGPT/ALT 7 U/L (13-61)
[2023-02-03 23:45] LABS: SGOT/AST 12 U/L (15-37)
[2023-02-03 23:46] LABS: BILIRUBIN,TOTAL 0.4 mg/dL (0.2-1); TOT PROT 6.7 g/dl (6.4-8.2)
[2023-02-03 23:47] LABS: ALK PHOS 137 U/L (45-117)
[2023-02-03 23:49] LABS: CREATININE 11.6 mg/dL (0.55-1.3)
[2023-02-04 03:57] VITALS: BMI 20.7
[2023-02-04] MEDS: INSULIN SLIDING SCALE (NOVOLOG) 1 VIAL SQ SCH ×4 (07:53→22:03)
[2023-02-04] MEDS: FAMOTIDINE 10 MG TABLET PO SCH (09:27)
[2023-02-04] MEDS: BUDESONIDE/FORMETEROL FUMARATE 160/4.5 mcg INHALER IH SCH ×3 (09:27→22:03)
[2023-02-04] MEDS: SACUBITRIL/VALSARTAN 24 MG-26 MG TABLET PO SCH ×2 (09:27→21:57)
[2023-02-04] MEDS: ASPIRIN COATED 81 MG TABLET.EC PO SCH (09:27)
[2023-02-04] MEDS: VITAMIN B COMP W-C 1 EA TABLET (NEPHRO-VITE) PO SCH (09:27)
[2023-02-04] MEDS: APIXABAN 2.5 MG TABLET PO SCH ×2 (09:27→21:57)
[2023-02-04 10:00] LABS: WHITE BLOOD COUNT 6.9 K/mm3 (4.0-10.0)
[2023-02-04] MEDS ORDERED: VANCOMYCIN 1,000 MG in DEXTROSE 5%-WATER - 250 ML IVPB SCH (10:00)
[2023-02-04 10:01] LABS: HEMATOCRIT 27.4 % (32.4-45.2); HEMOGLOBIN 8.6 GM/dL (10.7-15.3); MCH 25.9 pg (25.7-33.7); MCHC 31.3 g/dl (32.0-36.0); MEAN CELL VOLUME 82.6 fl (80-96); PLATELET COUNT 181 10^3/uL (134-434); RBC 3.31 M/mm3 (3.60-5.2); RDW 18.9 % (11.6-15.6)
[2023-02-04 10:15] LABS: CHLORIDE 109 mmol/L (98-107); POTASSIUM 4.8 mmol/L (3.5-5.1); SODIUM 142 mmol/L (136-145)
[2023-02-04 10:23] LABS: ALBUMIN 2.8 g/dl (3.4-5.0); ANION GAP 10 mmol/L (4-13); BLOOD UREA NITROGEN 48.2 mg/dL (7-18); CALCIUM 9.4 mg/dL (8.5-10.1); CO2 23 mmol/L (21-32); GLUCOSE,RANDOM 89 mg/dL (74-106); MAGNESIUM 2.4 mg/dL (1.8-2.4)
[2023-02-04 10:26] LABS: PHOSPHOROUS 4.4 mg/dL (2.5-4.9); SGOT/AST 23 U/L (15-37); SGPT/ALT 9 U/L (13-61)
[2023-02-04 10:27] LABS: BILIRUBIN,TOTAL 0.6 mg/dL (0.2-1)
[2023-02-04 10:29] LABS: ALK PHOS 124 U/L (45-117)
[2023-02-04 10:32] LABS: CREATININE 11.9 mg/dL (0.55-1.3)
[2023-02-04] MEDS ORDERED: ACETAMINOPHEN 325 MG TABLET (FP) PO ONE (19:00)
[2023-02-04] MEDS: ATORVASTATIN CA 40 MG TABLET (FP) PO SCH (21:57)
[2023-02-05] MEDS ORDERED: ACETAMINOPHEN 325 MG TABLET (FP) PO ONE (00:55)
[2023-02-05] MEDS: INSULIN SLIDING SCALE (NOVOLOG) 1 VIAL SQ SCH ×4 (07:42→21:36)
[2023-02-05] MEDS: SACUBITRIL/VALSARTAN 24 MG-26 MG TABLET PO SCH ×2 (10:01→21:35)
[2023-02-05] MEDS: FAMOTIDINE 10 MG TABLET PO SCH (10:01)
[2023-02-05] MEDS: VITAMIN B COMP W-C 1 EA TABLET (NEPHRO-VITE) PO SCH (10:01)
[2023-02-05] MEDS: APIXABAN 2.5 MG TABLET PO SCH ×2 (10:02→21:35)
[2023-02-05] MEDS: ASPIRIN COATED 81 MG TABLET.EC PO SCH (10:02)
[2023-02-05] MEDS: BUDESONIDE/FORMETEROL FUMARATE 160/4.5 mcg INHALER IH SCH ×2 (10:09→21:36)
[2023-02-05] MEDS ORDERED: ACETAMINOPHEN 1000 MG/100 ML BAG IVPB PRN (14:41)
[2023-02-05 16:49] LABS: HEMATOCRIT 26.3 % (32.4-45.2); MCH 25.1 pg (25.7-33.7); MCHC 30.5 g/dl (32.0-36.0); MEAN CELL VOLUME 82.1 fl (80-96); MEAN PLT VOLUME 9.3 fl (7.5-11.1); PLATELET COUNT 184 10^3/uL (134-434); RDW 18.6 % (11.6-15.6); WHITE BLOOD COUNT 6.8 K/mm3 (4.0-10.0)
[2023-02-05 17:23] LABS: CHLORIDE 109 mmol/L (98-107); POTASSIUM 4.4 mmol/L (3.5-5.1); SODIUM 140 mmol/L (136-145)
[2023-02-05 17:24] LABS: CALCIUM 9.5 mg/dL (8.5-10.1)
[2023-02-05 17:25] LABS: ALBUMIN 2.7 g/dl (3.4-5.0); ANION GAP 9 mmol/L (4-13); BLOOD UREA NITROGEN 61.6 mg/dL (7-18); CO2 22 mmol/L (21-32); GLUCOSE,RANDOM 98 mg/dL (74-106)
[2023-02-05 17:28] LABS: SGOT/AST 30 U/L (15-37); SGPT/ALT 12 U/L (13-61)
[2023-02-05 17:30] LABS: BILIRUBIN,TOTAL 0.4 mg/dL (0.2-1); TOT PROT 5.8 g/dl (6.4-8.2)
[2023-02-05 17:31] LABS: ALK PHOS 126 U/L (45-117)
[2023-02-05 17:33] LABS: CREATININE 14.1 mg/dL (0.55-1.3)
[2023-02-05] MEDS ORDERED: SODIUM CHLORIDE 250 ML IV PRN ×2 (18:11→18:13)
[2023-02-05] MEDS: ATORVASTATIN CA 40 MG TABLET (FP) PO SCH (21:35)
[2023-02-06] MEDS ORDERED: SODIUM CHLORIDE 250 ML IV PRN (00:01)
[2023-02-06] MEDS: INSULIN SLIDING SCALE (NOVOLOG) 1 VIAL SQ SCH ×4 (06:25→22:49)
[2023-02-06] MEDS: BUDESONIDE/FORMETEROL FUMARATE 160/4.5 mcg INHALER IH SCH ×3 (09:03→22:50)
[2023-02-06] MEDS: VITAMIN B COMP W-C 1 EA TABLET (NEPHRO-VITE) PO SCH (09:03)
[2023-02-06] MEDS: APIXABAN 2.5 MG TABLET PO SCH ×2 (09:03→22:47)
[2023-02-06] MEDS: FAMOTIDINE 10 MG TABLET PO SCH (09:03)
[2023-02-06] MEDS: ASPIRIN COATED 81 MG TABLET.EC PO SCH (09:03)
[2023-02-06] MEDS: SACUBITRIL/VALSARTAN 24 MG-26 MG TABLET PO SCH ×2 (09:03→22:46)
[2023-02-06] MEDS ORDERED: ALPRAZolam 0.25 MG TABLET PO ONE (11:00)
[2023-02-06 16:19] LABS: BASO % 0.4 % (0-2.0); EOS % 7.1 % (0-4.5); HEMATOCRIT 25.2 % (32.4-45.2); HEMOGLOBIN 7.9 GM/dL (10.7-15.3); LYMPH % 16.6 % (8-40); MCH 25.8 pg (25.7-33.7); MCHC 31.2 g/dl (32.0-36.0); MEAN CELL VOLUME 82.8 fl (80-96); MEAN PLT VOLUME 10.1 fl (7.5-11.1); MONO % 10.1 % (3.8-10.2); NEUT % 65.8 % (42.8-82.8); PLATELET COUNT 178 10^3/uL (134-434); RBC 3.05 M/mm3 (3.60-5.2); RDW 18.2 % (11.6-15.6)
[2023-02-06 16:45] LABS: CHLORIDE 109 mmol/L (98-107); POTASSIUM 4.5 mmol/L (3.5-5.1); SODIUM 140 mmol/L (136-145)
[2023-02-06 16:47] LABS: CALCIUM 9.6 mg/dL (8.5-10.1)
[2023-02-06 16:48] LABS: ALBUMIN 2.8 g/dl (3.4-5.0); ANION GAP 8 mmol/L (4-13); CO2 23 mmol/L (21-32); GLUCOSE,RANDOM 110 mg/dL (74-106); MAGNESIUM 2.6 mg/dL (1.8-2.4)
[2023-02-06 16:50] LABS: SGPT/ALT 20 U/L (13-61)
[2023-02-06 16:51] LABS: PHOSPHOROUS 4.5 mg/dL (2.5-4.9); SGOT/AST 48 U/L (15-37)
[2023-02-06 16:52] LABS: BILIRUBIN,TOTAL 0.4 mg/dL (0.2-1); TOT PROT 6.1 g/dl (6.4-8.2)
[2023-02-06 16:53] LABS: ALK PHOS 144 U/L (45-117)
[2023-02-06 16:59] LABS: CREATININE 15.9 mg/dL (0.55-1.3)
[2023-02-06] MEDS: ATORVASTATIN CA 40 MG TABLET (FP) PO SCH (22:46)
[2023-02-07] MEDS: INSULIN SLIDING SCALE (NOVOLOG) 1 VIAL SQ SCH ×3 (06:24→16:58)
[2023-02-07] MEDS: APIXABAN 2.5 MG TABLET PO SCH (09:02)
[2023-02-07] MEDS: SACUBITRIL/VALSARTAN 24 MG-26 MG TABLET PO SCH (09:02)
[2023-02-07] MEDS: ASPIRIN COATED 81 MG TABLET.EC PO SCH (09:02)
[2023-02-07] MEDS: BUDESONIDE/FORMETEROL FUMARATE 160/4.5 mcg INHALER IH SCH (09:02)
[2023-02-07] MEDS: FAMOTIDINE 10 MG TABLET PO SCH (09:02)
[2023-02-07] MEDS: VITAMIN B COMP W-C 1 EA TABLET (NEPHRO-VITE) PO SCH (09:02)
[2023-02-07 17:03] VITALS: BP 113/54; PULSE 78; RESP 18; TEMP 98.1
[2023-02-08] MEDS ORDERED: MULTIVITAMINS THER W-MINERALS COMBO TABLET (FP) PO SCH (10:00)
== END 2023-02-07 19:22 | disposition home health service (06) | DRG 314 ==
LOC: JER 16:43 → JERBED 18:37 → INTOOBSV 18:37 → J8W 02-04 03:14 → OBSVTOIN 02-04 04:08
PROVIDERS: ADMIT Internal Medicine; ATTEND Internal Medicine
PROC: 5A1D70Z Performance of Urinary Filtration, Intermittent, Less than 6 Hours Per Day (ICD-10-PCS; principal; 2023-02-06)
DX: I95.9 Hypotension, unspecified (principal); N18.6 End stage renal disease; I13.2 Hypertensive heart and chronic kidney disease with heart failure and with stage 5 chronic kidney disease, or end stage renal disease; I50.22 Chronic systolic (congestive) heart failure; I25.10 Atherosclerotic heart disease of native coronary artery without angina pectoris; D63.1 Anemia in chronic kidney disease; J44.9 Chronic obstructive pulmonary disease, unspecified; E11.22 Type 2 diabetes mellitus with diabetic chronic kidney disease; N32.9 Bladder disorder, unspecified; Z86.19 Personal history of other infectious and parasitic diseases; Z88.0 Allergy status to penicillin; Z85.51 Personal history of malignant neoplasm of bladder; Z99.2 Dependence on renal dialysis
CPT/HCPCS: 36415; 73200-TC-RT; 80053; 82728; 82962; 83540; 83550; 83735; 84100; 85025; 85027; 85610; 85730; 86704; 86803; 86850; 86900; 86901; 87040; 87340; 87517; 87522; 93005; 93010; 93971; 97116-GP; 97162-GP; 99285-25; G0378

== ENCOUNTER 2023-03-21 04:42 | Inpatient (IN) | payer OTHER ==
[2023-03-21] MEDS ORDERED: ONDANSETRON 4 MG/2 ML VIAL IVPUSH PRN (13:43)
[2023-03-21] MEDS ORDERED: LACTATED RINGERS SOLUTION 1,000 ML IV SCH (13:45)
[2023-03-21] MEDS ORDERED: PROPOFOL 20 ML ONE (14:18)
[2023-03-21] MEDS: ceFAZolin SODIUM 1 GM VIAL IVPB ONE (14:27)
[2023-03-21] MEDS ORDERED: ACETAMINOPHEN INJECTION 100 ML IVPB ONE (16:29)
[2023-03-21] MEDS: mitoMYcin 40 MG/50 ML DISP.SYRIN (FOR OR USE) IC ONE (17:09)
[2023-03-21] MEDS: ACETAMINOPHEN 1000 MG/100 ML BAG IVPB ONE (17:09)
[2023-03-21] MEDS: DEXTROSE 5%-0.45% SALINE 1,000 ML IV SCH (21:27)
[2023-03-21] MEDS: ATORVASTATIN CA 40 MG TABLET (FP) PO SCH (21:36)
[2023-03-22] MEDS: CARVEDILOL 25 MG TABLET (FP) PO SCH (00:33)
[2023-03-22] MEDS: BUDESONIDE/FORMETEROL FUMARATE 160/4.5 mcg INHALER IH SCH (00:37)
[2023-03-22] MEDS: SACUBITRIL/VALSARTAN 24 MG-26 MG TABLET PO SCH (00:42)
[2023-03-22] MEDS ORDERED: SODIUM CHLORIDE 250 ML IV PRN (19:39)
[2023-03-23 15:46] LABS: BASO % 0.1 % (0-2.0); HEMATOCRIT 21.1 % (32.4-45.2); LYMPH % 15.1 % (8-40); MCH 25.3 pg (25.7-33.7); MCHC 31.5 g/dl (32.0-36.0); MEAN CELL VOLUME 80.2 fl (80-96); MEAN PLT VOLUME 10.7 fl (7.5-11.1); MONO % 6.2 % (3.8-10.2); NEUT % 77.6 % (42.8-82.8); PLATELET COUNT 174 10^3/uL (134-434); RBC 2.63 M/mm3 (3.60-5.2); RDW 16.9 % (11.6-15.6); WHITE BLOOD COUNT 10.1 K/mm3 (4.0-10.0)
[2023-03-23 15:57] LABS: HEMOGLOBIN 6.7 GM/dL (10.7-15.3)
[2023-03-23 15:59] LABS: CHLORIDE 104 mmol/L (98-107); POTASSIUM 4.1 mmol/L (3.5-5.1); SODIUM 142 mmol/L (136-145)
[2023-03-23 16:02] LABS: ALBUMIN 2.3 g/dl (3.4-5.0); CALCIUM 9.2 mg/dL (8.5-10.1)
[2023-03-23 16:03] LABS: ANION GAP 8 mmol/L (4-13); CO2 30 mmol/L (21-32); GLUCOSE,RANDOM 148 mg/dL (74-106)
[2023-03-23 16:06] LABS: SGOT/AST 27 U/L (15-37); SGPT/ALT 9 U/L (13-61)
[2023-03-23 16:07] LABS: BILIRUBIN,TOTAL 0.3 mg/dL (0.2-1); TOT PROT 5.4 g/dl (6.4-8.2)
[2023-03-23 16:08] LABS: ALK PHOS 117 U/L (45-117)
[2023-03-23 16:23] LABS: CREATININE 9.8 mg/dL (0.55-1.3)
[2023-03-24] MEDS: oxyCODONE HCL 5 MG TABLET PO PRN (14:30)
[2023-03-24] MEDS: LIDOCAINE HCL 1%, 10 MG/ML (20ML VIAL) SQ STA (16:36)
[2023-03-24] MEDS: LIDOCAINE HCL 1%, 10 MG/ML (50 mL VIAL) SQ STA (16:36)
[2023-03-26 12:52] LABS: BASO % 0.4 % (0-2.0); HEMATOCRIT 32.7 % (32.4-45.2); HEMOGLOBIN 10.2 GM/dL (10.7-15.3); LYMPH % 17.5 % (8-40); MCH 26.9 pg (25.7-33.7); MCHC 31.3 g/dl (32.0-36.0); MEAN PLT VOLUME 9.5 fl (7.5-11.1); MONO % 8.3 % (3.8-10.2); NEUT % 64.8 % (42.8-82.8); PLATELET COUNT 100 10^3/uL (134-434); RDW 18.8 % (11.6-15.6); WHITE BLOOD COUNT 5.1 K/mm3 (4.0-10.0)
[2023-03-26 12:55] LABS: CHLORIDE 110 mmol/L (98-107); POTASSIUM 4.3 mmol/L (3.5-5.1); SODIUM 143 mmol/L (136-145)
[2023-03-26 12:56] LABS: CALCIUM 9.2 mg/dL (8.5-10.1)
[2023-03-26 12:58] LABS: ALBUMIN 2.5 g/dl (3.4-5.0); ANION GAP 8 mmol/L (4-13); BLOOD UREA NITROGEN 43.9 mg/dL (7-18); CO2 25 mmol/L (21-32); GLUCOSE,RANDOM 131 mg/dL (74-106)
[2023-03-26 13:01] LABS: SGOT/AST 69 U/L (15-37); SGPT/ALT 19 U/L (13-61)
[2023-03-26 13:03] LABS: BILIRUBIN,TOTAL 0.5 mg/dL (0.2-1); TOT PROT 6.2 g/dl (6.4-8.2)
[2023-03-26 13:04] LABS: ALK PHOS 191 U/L (45-117); CREATININE 9.5 mg/dL (0.55-1.3)
[2023-03-26] MEDS ORDERED: SODIUM CHLORIDE 250 ML IV PRN (17:56)
[2023-03-27] MEDS ORDERED: LIDOCAINE HCL 1%, 10 MG/ML (20ML VIAL) ONE (19:34)
[2023-03-27] MEDS ORDERED: MIDAZOLAM HCL 2 MG/2 ML SINGLE DOSE VIAL ONE (19:38)
[2023-03-27] MEDS ORDERED: PROPOFOL 20 ML ONE (19:38)
[2023-03-27] MEDS ORDERED: ROCURONIUM BROMIDE 50 MG/5 ML SYRINGE ONE (19:38)
[2023-03-27] MEDS: LIDOCAINE HCL 1%, 10 MG/ML (20ML VIAL) NR ONE (19:51)
[2023-03-27] MEDS: CLINDAMYCIN 600 MG PREMIX BAG IVPB ONE (19:55)
[2023-03-27] MEDS ORDERED: BACITRACIN ZINC 15 GM TUBE TOPICAL OINTMENT ONE (20:11)
[2023-03-27] MEDS ORDERED: SODIUM CHLORIDE 250 ML IV PRN (20:40)
[2023-03-27] MEDS ORDERED: oxyCODONE HCL 5 MG TABLET PO PRN (20:40)
[2023-03-27] MEDS: SACUBITRIL/VALSARTAN 24 MG-26 MG TABLET PO SCH (22:08)
[2023-03-27] MEDS: BUDESONIDE/FORMETEROL FUMARATE 160/4.5 mcg INHALER IH SCH (22:09)
[2023-03-27] MEDS: ATORVASTATIN CA 40 MG TABLET (FP) PO SCH (22:09)
[2023-03-27] MEDS: CARVEDILOL 25 MG TABLET (FP) PO SCH (22:09)
[2023-03-31 08:20] LABS: HEMATOCRIT 28.2 % (32.4-45.2); HEMOGLOBIN 9.2 GM/dL (10.7-15.3); MCH 26.6 pg (25.7-33.7); MCHC 32.6 g/dl (32.0-36.0); MEAN CELL VOLUME 81.5 fl (80-96); MEAN PLT VOLUME 10.1 fl (7.5-11.1); PLATELET COUNT 106 10^3/uL (134-434); RBC 3.46 M/mm3 (3.60-5.2); RDW 18.3 % (11.6-15.6); WHITE BLOOD COUNT 6.2 K/mm3 (4.0-10.0)
[2023-03-31 08:29] LABS: INR 1.09 (0.83-1.09); PROTHROMBIN TIME (PATIENT) 12.6 SEC (9.7-13.0)
[2023-03-31 08:32] LABS: ACTIVATED PTT 27.6 SECONDS (25.2-36.5)
[2023-03-31] MEDS ORDERED: SODIUM CHLORIDE 250 ML IV PRN (08:34)
[2023-03-31 08:48] LABS: CHLORIDE 109 mmol/L (98-107); POTASSIUM 4.6 mmol/L (3.5-5.1); SODIUM 145 mmol/L (136-145)
[2023-03-31 08:50] LABS: CALCIUM 9.1 mg/dL (8.5-10.1)
[2023-03-31 08:51] LABS: ANION GAP 8 mmol/L (4-13); BLOOD UREA NITROGEN 63.6 mg/dL (7-18); CO2 27 mmol/L (21-32); GLUCOSE,RANDOM 69 mg/dL (74-106)
[2023-03-31 09:10] LABS: CREATININE 12.7 mg/dL (0.55-1.3)
[2023-03-31] MEDS: EPOETIN ALFA-EPBX 4,000 UNIT/ML VIAL SQ ONE (09:59)
[2023-04-02] MEDS: SIMETHICONE 80 MG TAB.CHEW (FP) PO PRN (08:34)
[2023-04-02] MEDS ORDERED: SODIUM CHLORIDE 250 ML IV PRN (10:49)
[2023-04-02 14:51] VITALS: BMI 20.5
[2023-04-03] MEDS ORDERED: EPOETIN ALFA-EPBX 10,000 UNIT/ML VIAL SQ ONE (10:49)
[2023-04-03] MEDS ORDERED: HEPARIN NA (PORCINE) 5,000 UNITS/ML 1ML VIAL ONE ×2 (16:00→16:04)
[2023-04-03] MEDS ORDERED: LIDOCAINE HCL 1%, 10 MG/ML (20ML VIAL) ONE (16:00)
[2023-04-03] MEDS ORDERED: PROPOFOL 20 ML ONE (16:03)
[2023-04-03] MEDS ORDERED: MIDAZOLAM HCL 2 MG/2 ML SINGLE DOSE VIAL ONE (16:03)
[2023-04-03] MEDS: IOVERSOL 320 MG/ML ML IV ONE (16:28)
[2023-04-03] MEDS: HEPARIN NA (PORCINE) 5,000 UNITS/ML 1ML VIAL IV ONE (16:29)
[2023-04-03] MEDS: LIDOCAINE HCL 1%, 10 MG/ML (20ML VIAL) INF ONE ×2 (16:30)
[2023-04-03] MEDS ORDERED: ONDANSETRON 4 MG/2 ML VIAL IVPUSH PRN ×2 (16:32→18:49)
[2023-04-03] MEDS ORDERED: oxyCODONE HCL 5 MG TABLET PO PRN (16:32)
[2023-04-03] MEDS ORDERED: SODIUM CHLORIDE 1,000 ML IV SCH (16:45)
[2023-04-03] MEDS ORDERED: CLINDAMYCIN PHOSPHATE 600 MG/4 ML VIAL ONE (16:59)
[2023-04-03] MEDS: CLINDAMYCIN 600 MG PREMIX BAG IVPB ONE (17:00)
[2023-04-03] MEDS ORDERED: SODIUM CHLORIDE 250 ML IV PRN (18:49)
[2023-04-03] MEDS ORDERED: SIMETHICONE 80 MG TAB.CHEW (FP) PO PRN (18:49)
[2023-04-04] MEDS: CARVEDILOL 25 MG TABLET (FP) PO SCH (00:03)
[2023-04-04] MEDS: SODIUM CHLORIDE 1,000 ML IV SCH (00:03)
[2023-04-04] MEDS: SACUBITRIL/VALSARTAN 24 MG-26 MG TABLET PO SCH (00:03)
[2023-04-04] MEDS: ATORVASTATIN CA 40 MG TABLET (FP) PO SCH (00:03)
[2023-04-04] MEDS: BUDESONIDE/FORMETEROL FUMARATE 160/4.5 mcg INHALER IH SCH (00:04)
[2023-04-04] MEDS: oxyCODONE HCL 5 MG TABLET PO PRN (00:31)
[2023-04-04 13:28] LABS: HEMATOCRIT 29.6 % (32.4-45.2); HEMOGLOBIN 9.4 GM/dL (10.7-15.3); MCH 25.8 pg (25.7-33.7); MCHC 31.7 g/dl (32.0-36.0); MEAN CELL VOLUME 81.2 fl (80-96); MEAN PLT VOLUME 11.2 fl (7.5-11.1); PLATELET COUNT 138 10^3/uL (134-434); RBC 3.64 M/mm3 (3.60-5.2); RDW 18.4 % (11.6-15.6); WHITE BLOOD COUNT 7.3 K/mm3 (4.0-10.0)
[2023-04-04 13:47] LABS: CHLORIDE 108 mmol/L (98-107); SODIUM 145 mmol/L (136-145)
[2023-04-04 13:49] LABS: CALCIUM 9.8 mg/dL (8.5-10.1)
[2023-04-04 13:50] LABS: ALBUMIN 2.5 g/dl (3.4-5.0); ANION GAP 10 mmol/L (4-13); BLOOD UREA NITROGEN 66.8 mg/dL (7-18); CO2 27 mmol/L (21-32); GLUCOSE,RANDOM 125 mg/dL (74-106)
[2023-04-04 13:53] LABS: SGOT/AST 52 U/L (15-37); SGPT/ALT 47 U/L (13-61)
[2023-04-04 13:54] LABS: BILIRUBIN,TOTAL 0.7 mg/dL (0.2-1); TOT PROT 6.6 g/dl (6.4-8.2)
[2023-04-04 14:01] LABS: ALK PHOS 251 U/L (45-117); CREATININE 14.5 mg/dL (0.55-1.3)
[2023-04-04] MEDS: EPOETIN ALFA-EPBX 10,000 UNIT/ML VIAL SQ ONE (14:26)
[2023-04-05 11:13] VITALS: RESP 18
[2023-04-05] MEDS ORDERED: SODIUM CHLORIDE 250 ML IV PRN (12:23)
[2023-04-05 13:12] VITALS: BP 117/72; PULSE 75; TEMP 97.6
[2023-04-06] MEDS ORDERED: EPOETIN ALFA-EPBX 10,000 UNIT/ML VIAL SQ ONE (12:23)
== END 2023-04-05 17:00 | disposition home health service (06) | DRG 668 ==
LOC: JASU-SURG 04:42 → J5S 18:06 → JASU-SURG 18:07
PROVIDERS: ADMIT Internal Medicine; ATTEND Internal Medicine
PROC: 0TBC8ZZ Excision of Bladder Neck, Via Natural or Artificial Opening Endoscopic (ICD-10-PCS; 2023-03-21)
PROC: 0TBB8ZZ Excision of Bladder, Via Natural or Artificial Opening Endoscopic (ICD-10-PCS; principal; 2023-03-21 15:00)
PROC: 06HM33Z Insertion of Infusion Device into Right Femoral Vein, Percutaneous Approach (ICD-10-PCS; 2023-03-24)
PROC: B54BZZA Ultrasonography of Right Lower Extremity Veins, Guidance (ICD-10-PCS; 2023-03-24)
PROC: 30233N1 Transfusion of Nonautologous Red Blood Cells into Peripheral Vein, Percutaneous Approach (ICD-10-PCS; 2023-03-24)
PROC: B50 Imaging, Veins, Plain Radiography (ICD-10-PCS; 2023-03-27)
PROC: 02PYX3Z Removal of Infusion Device from Great Vessel, External Approach (ICD-10-PCS; 2023-03-27)
PROC: 06PYX3Z Removal of Infusion Device from Lower Vein, External Approach (ICD-10-PCS; 2023-03-31)
PROC: 5A1D70Z Performance of Urinary Filtration, Intermittent, Less than 6 Hours Per Day (ICD-10-PCS; 2023-03-31)
PROC: 057A3ZZ Dilation of Left Brachial Vein, Percutaneous Approach (ICD-10-PCS; 2023-04-03)
PROC: 06HN33Z Insertion of Infusion Device into Left Femoral Vein, Percutaneous Approach (ICD-10-PCS; 2023-04-03)
PROC: B51CZZA Fluoroscopy of Left Lower Extremity Veins, Guidance (ICD-10-PCS; 2023-04-03)
PROC: 5A1D70Z Performance of Urinary Filtration, Intermittent, Less than 6 Hours Per Day (ICD-10-PCS; 2023-04-04)
DX: C67.9 Malignant neoplasm of bladder, unspecified (principal); N18.6 End stage renal disease; I13.2 Hypertensive heart and chronic kidney disease with heart failure and with stage 5 chronic kidney disease, or end stage renal disease; T82.41XA Breakdown (mechanical) of vascular dialysis catheter, initial encounter; I82.210 Acute embolism and thrombosis of superior vena cava; F03.90 Unspecified dementia, unspecified severity, without behavioral disturbance, psychotic disturbance, mood disturbance, and anxiety; I48.0 Paroxysmal atrial fibrillation; J44.9 Chronic obstructive pulmonary disease, unspecified; E78.00 Pure hypercholesterolemia, unspecified; D64.9 Anemia, unspecified; R31.9 Hematuria, unspecified; R56.9 Unspecified convulsions; E11.22 Type 2 diabetes mellitus with diabetic chronic kidney disease; I50.9 Heart failure, unspecified; Z99.2 Dependence on renal dialysis; Y84.8 Other medical procedures as the cause of abnormal reaction of the patient, or of later complication, without mention of misadventure at the time of the procedure
CPT/HCPCS: 36415; 36430; 71045-TC-FY; 76000-TC-FY; 80048; 80053; 82962; 85025; 85027; 85610; 85730; 86704; 86803; 86850; 86900; 86901; 86922; 87340; 87517; 87522; 93005; 93010; 94760; 97162-GP; C1750; C1769; J0131; J1644; J2997; P9058; Q5106

== ENCOUNTER 2023-05-20 22:34 | Inpatient (IN) | payer OTHER ==
[2023-05-21 00:50] LABS: BASO % 0.8 % (0-2.0); EOS % 10.7 % (0-4.5); HEMATOCRIT 29.5 % (32.4-45.2); HEMOGLOBIN 9.4 GM/dL (10.7-15.3); LYMPH % 21.6 % (8-40); MCH 25.2 pg (25.7-33.7); MCHC 31.7 g/dl (32.0-36.0); MEAN CELL VOLUME 79.4 fl (80-96); MEAN PLT VOLUME 9.9 fl (7.5-11.1); MONO % 15.3 % (3.8-10.2); NEUT % 51.6 % (42.8-82.8); PLATELET COUNT 167 10^3/uL (134-434); RBC 3.72 M/mm3 (3.60-5.2); RDW 18.8 % (11.6-15.6); WHITE BLOOD COUNT 5.4 K/mm3 (4.0-10.0)
[2023-05-21 00:59] LABS: POTASSIUM 4.9 mmol/L (3.5-5.1)
[2023-05-21 01:01] LABS: CALCIUM 8.2 mg/dL (8.5-10.1)
[2023-05-21 01:02] LABS: ALBUMIN 2.7 g/dl (3.4-5.0); BLOOD UREA NITROGEN 22.9 mg/dL (7-18)
[2023-05-21 01:05] LABS: CREATININE 6.4 mg/dL (0.55-1.3)
[2023-05-21 01:06] LABS: BILIRUBIN,TOTAL 0.4 mg/dL (0.2-1); TOT PROT 6.8 g/dl (6.4-8.2)
[2023-05-21 02:45] LABS: INR 1.24 (0.83-1.09); PROTHROMBIN TIME (PATIENT) 14.3 SEC (9.7-13.0)
[2023-05-21 02:48] LABS: ACTIVATED PTT 50.1 SECONDS (25.2-36.5)
[2023-05-21 03:06] LABS: EPI CELLS 7 /uL (0-25.1); HYALINE CASTS 0 /uL (0-3.1); URINE APPEARANCE TURBID; URINE BACTERIA 122 /uL (0-1359); URINE BILIRUBIN NEGATIVE (NEGATIVE); URINE GLUCOSE (UA) TRACE (NEGATIVE); URINE KETONE NEGATIVE (NEGATIVE); URINE PROTEIN 4+ (NEGATIVE); URINE UROBILINOGEN 0.2 mg/dL (0.2-1.0); URINE WBC 12 /uL (0-25.8)
[2023-05-21 03:34] LABS: URINE COLOR RED; URINE RBC 109 /uL (0-23.9); YEAST PRESENT (NEGATIVE)
[2023-05-21] MEDS ORDERED: DOCUSATE SODIUM 100 MG CAPSULE (FP) PO PRN (03:44)
[2023-05-21 04:01] LABS: BASO % 0.6 % (0-2.0); EOS % 10.7 % (0-4.5); HEMOGLOBIN 9.7 GM/dL (10.7-15.3); LYMPH % 22.1 % (8-40); MCH 25.2 pg (25.7-33.7); MCHC 31.5 g/dl (32.0-36.0); MEAN PLT VOLUME 10.4 fl (7.5-11.1); MONO % 10.4 % (3.8-10.2); NEUT % 56.2 % (42.8-82.8); PLATELET COUNT 160 10^3/uL (134-434); RBC 3.87 M/mm3 (3.60-5.2); RDW 18.8 % (11.6-15.6)
[2023-05-21] MEDS: INSULIN ASPART SLIDING SCALE (NOVOLOG) 1 VIAL SQ SCH (07:32)
[2023-05-21] MEDS: SEVELAMER CARBONATE 800 MG TAB (FP) PO SCH (08:42)
[2023-05-21] MEDS: SACUBITRIL/VALSARTAN 24 MG-26 MG TABLET PO SCH (10:10)
[2023-05-21] MEDS: BUDESONIDE/FORMETEROL FUMARATE 160/4.5 mcg INHALER IH SCH (10:10)
[2023-05-21] MEDS: FAMOTIDINE 10 MG TABLET PO SCH (10:10)
[2023-05-21] MEDS: VITAMIN B COMP W-C 1 EA TABLET (NEPHRO-VITE) PO SCH (10:10)
[2023-05-21] MEDS: CARVEDILOL 25 MG TABLET (FP) PO SCH (10:10)
[2023-05-21] MEDS: ATORVASTATIN CA 40 MG TABLET (FP) PO SCH (21:39)
[2023-05-22] MEDS ORDERED: SODIUM CHLORIDE 250 ML IV PRN (13:00)
[2023-05-22 14:26] LABS: HEMATOCRIT 23.9 % (32.4-45.2); HEMOGLOBIN 7.5 GM/dL (10.7-15.3); MCH 24.9 pg (25.7-33.7); MCHC 31.3 g/dl (32.0-36.0); MEAN CELL VOLUME 79.6 fl (80-96); MEAN PLT VOLUME 10.4 fl (7.5-11.1); PLATELET COUNT 144 10^3/uL (134-434); WHITE BLOOD COUNT 6.4 K/mm3 (4.0-10.0)
[2023-05-22 14:48] LABS: CALCIUM 8.8 mg/dL (8.5-10.1); CHLORIDE 110 mmol/L (98-107); POTASSIUM 3.7 mmol/L (3.5-5.1); SODIUM 146 mmol/L (136-145)
[2023-05-22 14:50] LABS: ANION GAP 9 mmol/L (4-13); BLOOD UREA NITROGEN 40.8 mg/dL (7-18); CO2 27 mmol/L (21-32); GLUCOSE,RANDOM 112 mg/dL (74-106)
[2023-05-22 14:53] LABS: CREATININE 9.6 mg/dL (0.55-1.3)
[2023-05-22] MEDS: EPOETIN ALFA-EPBX 10,000 UNIT/ML VIAL SQ ONE (16:02)
[2023-05-23] MEDS ORDERED: DEXAMETHASONE SOD PHOSPHATE 4 MG/1 ML VIAL ONE (07:36)
[2023-05-23] MEDS ORDERED: MIDAZOLAM HCL 2 MG/2 ML SINGLE DOSE VIAL ONE (07:36)
[2023-05-23] MEDS ORDERED: ROCURONIUM BROMIDE 50 MG/5 ML SYRINGE ONE (07:36)
[2023-05-23] MEDS ORDERED: ONDANSETRON 4 MG/2 ML VIAL ONE (07:36)
[2023-05-23] MEDS ORDERED: FENTANYL CITRATE/PF 50 MCG/ML VIAL ONE (07:36)
[2023-05-23] MEDS ORDERED: LIDOCAINE HCL/PF 2% SDV 5ML VIAL ONE (07:36)
[2023-05-23] MEDS ORDERED: SUCCINYLCHOLINE CHLORIDE 200 MG/10 ML SYRINGE ONE (07:36)
[2023-05-23] MEDS ORDERED: PROPOFOL 60 ML ONE (07:36)
[2023-05-23] MEDS ORDERED: mitoMYcin 40 MG/50 ML DISP.SYRIN (FOR OR USE) IC ONE (08:00)
[2023-05-23] MEDS ORDERED: SODIUM CHLORIDE 250 ML IV PRN (14:12)
[2023-05-23] MEDS: ACETAMINOPHEN 325 MG TABLET (FP) PO PRN (22:13)
[2023-05-24] MEDS ORDERED: FENTANYL CITRATE/PF 50 MCG/ML VIAL ONE ×3 (08:35→09:45)
[2023-05-24] MEDS ORDERED: MIDAZOLAM HCL 2 MG/2 ML SINGLE DOSE VIAL ONE (08:35)
[2023-05-24] MEDS: ceFAZolin SODIUM 1 GM VIAL IVPB ONE (09:05)
[2023-05-24] MEDS ORDERED: PROPOFOL 20 ML ONE (10:16)
[2023-05-24] MEDS ORDERED: DOCUSATE SODIUM 100 MG CAPSULE (FP) PO PRN (10:28)
[2023-05-24] MEDS ORDERED: SODIUM CHLORIDE 250 ML IV PRN (10:28)
[2023-05-24] MEDS ORDERED: ACETAMINOPHEN 325 MG TABLET (FP) PO PRN (10:28)
[2023-05-24] MEDS ORDERED: ONDANSETRON 4 MG/2 ML VIAL IVPUSH PRN (10:38)
[2023-05-24] MEDS: INSULIN ASPART SLIDING SCALE (NOVOLOG) 1 VIAL SQ SCH (12:55)
[2023-05-24] MEDS: mitoMYcin 40 MG/50 ML DISP.SYRIN (FOR OR USE) IC ONE (12:56)
[2023-05-24] MEDS: SODIUM CHLORIDE 1,000 ML IV SCH (13:00)
[2023-05-24] MEDS: SEVELAMER CARBONATE 800 MG TAB (FP) PO SCH (13:00)
[2023-05-24] MEDS ORDERED: EPOETIN ALFA-EPBX 10,000 UNIT/ML VIAL SQ ONE (14:12)
[2023-05-24] MEDS: EPOETIN ALFA-EPBX 10,000 UNIT/ML VIAL SQ ONE (15:51)
[2023-05-24 16:29] LABS: HEMATOCRIT 26.4 % (32.4-45.2); HEMOGLOBIN 8.3 GM/dL (10.7-15.3); MCH 25.6 pg (25.7-33.7); MCHC 31.4 g/dl (32.0-36.0); MEAN CELL VOLUME 81.5 fl (80-96); MEAN PLT VOLUME 9.5 fl (7.5-11.1); PLATELET COUNT 110 10^3/uL (134-434); RBC 3.24 M/mm3 (3.60-5.2); RDW 19.1 % (11.6-15.6); WHITE BLOOD COUNT 5.9 K/mm3 (4.0-10.0)
[2023-05-24 16:38] LABS: POTASSIUM 3.1 mmol/L (3.5-5.1)
[2023-05-24 16:40] LABS: CALCIUM 8.1 mg/dL (8.5-10.1)
[2023-05-24 16:42] LABS: ALBUMIN 2.4 g/dl (3.4-5.0); BLOOD UREA NITROGEN 17.6 mg/dL (7-18)
[2023-05-24 16:44] LABS: CREATININE 3.9 mg/dL (0.55-1.3)
[2023-05-24 16:45] LABS: TOT PROT 5.7 g/dl (6.4-8.2)
[2023-05-24 16:46] LABS: BILIRUBIN,TOTAL 0.5 mg/dL (0.2-1)
[2023-05-24] MEDS: SACUBITRIL/VALSARTAN 24 MG-26 MG TABLET PO SCH (22:50)
[2023-05-24] MEDS: ATORVASTATIN CA 40 MG TABLET (FP) PO SCH (22:51)
[2023-05-24] MEDS: CARVEDILOL 25 MG TABLET (FP) PO SCH (22:51)
[2023-05-24] MEDS: BUDESONIDE/FORMETEROL FUMARATE 160/4.5 mcg INHALER IH SCH (22:52)
[2023-05-25] MEDS: VITAMIN B COMP W-C 1 EA TABLET (NEPHRO-VITE) PO SCH (10:15)
[2023-05-25] MEDS: FAMOTIDINE 10 MG TABLET PO SCH (10:15)
[2023-05-25] MEDS ORDERED: INSULIN (NOVOLOG) ASPART 100 UNITS/ML 10ML VIAL ONE (17:01)
[2023-05-25] MEDS ORDERED: SODIUM CHLORIDE 250 ML IV PRN (17:31)
[2023-05-26 09:59] LABS: HEMATOCRIT 23.5 % (32.4-45.2); HEMOGLOBIN 7.4 GM/dL (10.7-15.3); MCH 25.9 pg (25.7-33.7); MCHC 31.7 g/dl (32.0-36.0); MEAN CELL VOLUME 81.6 fl (80-96); PLATELET COUNT 103 10^3/uL (134-434); RBC 2.88 M/mm3 (3.60-5.2); RDW 20.2 % (11.6-15.6); WHITE BLOOD COUNT 7.8 K/mm3 (4.0-10.0)
[2023-05-26 10:17] LABS: CHLORIDE 111 mmol/L (98-107); POTASSIUM 3.6 mmol/L (3.5-5.1); SODIUM 144 mmol/L (136-145)
[2023-05-26] MEDS: EPOETIN ALFA-EPBX 10,000 UNIT, EPOETIN ALFA-EPBX 2,000 UNIT IVPUSH ONE (10:25)
[2023-05-26 10:54] LABS: CALCIUM 8.7 mg/dL (8.5-10.1)
[2023-05-26 10:55] LABS: ANION GAP 6 mmol/L (4-13); BLOOD UREA NITROGEN 40.3 mg/dL (7-18); CO2 27 mmol/L (21-32); GLUCOSE,RANDOM 110 mg/dL (74-106)
[2023-05-26 11:09] LABS: CREATININE 8.2 mg/dL (0.55-1.3)
[2023-05-26 15:02] VITALS: BMI 21.8
[2023-05-26] MEDS ORDERED: EPOETIN ALFA-EPBX 10,000 UNIT/ML VIAL SQ ONE (17:31)
[2023-05-27 06:40] VITALS: RESP 18
[2023-05-27 09:30] VITALS: TEMP 98.4
[2023-05-27 14:41] VITALS: BP 107/48; PULSE 73
== END 2023-05-27 18:26 | disposition home or self-care (01) | DRG 668 ==
LOC: JER 22:34 → JERBED 05-21 02:54 → J7W 05-21 05:27 → OBSVTOIN 05-23 09:32
PROVIDERS: ADMIT Internal Medicine; ATTEND Internal Medicine
PROC: 5A1D70Z Performance of Urinary Filtration, Intermittent, Less than 6 Hours Per Day (ICD-10-PCS; 2023-05-21)
PROC: 30233N1 Transfusion of Nonautologous Red Blood Cells into Peripheral Vein, Percutaneous Approach (ICD-10-PCS; 2023-05-23)
PROC: 0TCB8ZZ Extirpation of Matter from Bladder, Via Natural or Artificial Opening Endoscopic (ICD-10-PCS; 2023-05-24)
PROC: 0TBB8ZZ Excision of Bladder, Via Natural or Artificial Opening Endoscopic (ICD-10-PCS; principal; 2023-05-24 08:30)
DX: C67.9 Malignant neoplasm of bladder, unspecified (principal); N18.6 End stage renal disease; I50.22 Chronic systolic (congestive) heart failure; I13.2 Hypertensive heart and chronic kidney disease with heart failure and with stage 5 chronic kidney disease, or end stage renal disease; I25.10 Atherosclerotic heart disease of native coronary artery without angina pectoris; J44.9 Chronic obstructive pulmonary disease, unspecified; Z99.2 Dependence on renal dialysis; K21.9 Gastro-esophageal reflux disease without esophagitis; E78.5 Hyperlipidemia, unspecified; R31.0 Gross hematuria; I48.0 Paroxysmal atrial fibrillation; F03.90 Unspecified dementia, unspecified severity, without behavioral disturbance, psychotic disturbance, mood disturbance, and anxiety; D64.9 Anemia, unspecified
CPT/HCPCS: 36415; 36430; 80048; 80053; 81003; 82962; 85025; 85027; 85610; 85730; 86704; 86803; 86850; 86900; 86901; 86922; 87086; 87340; 87517; 87522; 88307-TC; 93005; 93010; 94760; 99285-25; G0378; P9058; Q5106

== ENCOUNTER 2023-08-04 04:29 | Inpatient (IN) | payer OTHER ==
[2023-08-04] MEDS ORDERED: PROPOFOL 20 ML ONE (07:10)
[2023-08-04] MEDS ORDERED: LIDOCAINE HCL/PF 2% SDV 5ML VIAL ONE (07:10)
[2023-08-04] MEDS ORDERED: FENTANYL CITRATE/PF 50 MCG/ML VIAL ONE ×2 (07:10→16:37)
[2023-08-04] MEDS ORDERED: MIDAZOLAM HCL 2 MG/2 ML SINGLE DOSE VIAL ONE ×2 (07:11→16:37)
[2023-08-04] MEDS: ceFAZolin SODIUM 1 GM VIAL IVPB ONE (07:50)
[2023-08-04] MEDS ORDERED: ceFAZolin SODIUM 1 GM VIAL ONE (07:51)
[2023-08-04] MEDS ORDERED: DEXAMETHASONE SOD PHOSPHATE 4 MG/1 ML VIAL ONE (07:51)
[2023-08-04] MEDS ORDERED: PROMETHAZINE HCL 25 MG/1 ML VIAL IVPB PRN (08:36)
[2023-08-04] MEDS ORDERED: ONDANSETRON 4 MG/2 ML VIAL IVPUSH PRN (08:36)
[2023-08-04] MEDS ORDERED: hydrALAZINE HCL 20 MG/ML VIAL ONE (09:15)
[2023-08-04] MEDS: hydrALAZINE HCL 20 MG/ML VIAL IVPUSH ONE ×2 (09:15→21:29)
[2023-08-04] MEDS: ACETAMINOPHEN 1000 MG/100 ML BAG IVPB ONE (10:33)
[2023-08-04] MEDS: ACETAMINOPHEN INJECTION 100 ML IVPB ONE (10:33)
[2023-08-04] MEDS: mitoMYcin 40 MG/50 ML DISP.SYRIN (FOR OR USE) IC ONE (11:26)
[2023-08-04] MEDS: LACTATED RINGERS SOLUTION 1,000 ML IV SCH (11:27)
[2023-08-04] MEDS: oxyCODONE HCL 5 MG TABLET PO PRN (12:04)
[2023-08-04] MEDS ORDERED: SODIUM CHLORIDE 250 ML IV PRN (14:07)
[2023-08-04 17:47] LABS: POTASSIUM 4.3 mmol/L (3.5-5.1)
[2023-08-04 17:49] LABS: CALCIUM 9.9 mg/dL (8.5-10.1)
[2023-08-04 17:50] LABS: ALBUMIN 3.3 g/dl (3.4-5.0); BLOOD UREA NITROGEN 24.5 mg/dL (7-18)
[2023-08-04] MEDS: ONDANSETRON 4 MG/2 ML VIAL IVPUSH PRN (17:50)
[2023-08-04] MEDS: HYDROmorphone HCl 2 MG/ML VIAL IVPUSH ONE (17:50)
[2023-08-04 17:52] LABS: EOS % 0.1 % (0-4.5); HEMATOCRIT 37.1 % (32.4-45.2); HEMOGLOBIN 12.3 GM/dL (10.7-15.3); LYMPH % 7.9 % (8-40); MCH 26.6 pg (25.7-33.7); MEAN CELL VOLUME 80.4 fl (80-96); MEAN PLT VOLUME 9.2 fl (7.5-11.1); MONO % 2.5 % (3.8-10.2); NEUT % 89.5 % (42.8-82.8); RBC 4.61 M/mm3 (3.60-5.2); RDW 19.2 % (11.6-15.6); WHITE BLOOD COUNT 8.5 K/mm3 (4.0-10.0)
[2023-08-04 17:53] LABS: CREATININE 6.7 mg/dL (0.55-1.3)
[2023-08-04 17:55] LABS: BILIRUBIN,TOTAL 0.7 mg/dL (0.2-1); TOT PROT 7.3 g/dl (6.4-8.2)
[2023-08-04 18:53] LABS: PLATELET COUNT 110 10^3/uL (134-434)
[2023-08-04] MEDS: CHLORHEXIDINE GLUCONATE 4% CLEANSER FOR DECOLONIZATION TP SCH (21:29)
[2023-08-04] MEDS: MUPIROCIN 2% TOPICAL OINTMENT FOR DECOLONIZATION NS SCH (21:34)
[2023-08-05] MEDS: PANTOPRAZOLE SODIUM 40 MG VIAL IVPUSH SCH (02:55)
[2023-08-05] MEDS: PROCHLORPERAZINE INJECTION 10 MG/2 ML VIAL IVPB PRN (03:03)
[2023-08-05 03:34] LABS: BASO % 0.1 % (0-2.0); HEMATOCRIT 29.9 % (32.4-45.2); HEMOGLOBIN 9.3 GM/dL (10.7-15.3); LYMPH % 7.8 % (8-40); MCH 25.1 pg (25.7-33.7); MCHC 31.2 g/dl (32.0-36.0); MEAN CELL VOLUME 80.3 fl (80-96); MEAN PLT VOLUME 9.7 fl (7.5-11.1); MONO % 6.6 % (3.8-10.2); NEUT % 85.5 % (42.8-82.8); PLATELET COUNT 105 10^3/uL (134-434); RBC 3.72 M/mm3 (3.60-5.2); RDW 19.1 % (11.6-15.6)
[2023-08-05 03:45] LABS: INR 1.13 (0.83-1.09)
[2023-08-05 03:48] LABS: ACTIVATED PTT 26.1 SECONDS (25.2-36.5)
[2023-08-05 03:49] LABS: CHLORIDE 108 mmol/L (98-107); POTASSIUM 4.6 mmol/L (3.5-5.1); SODIUM 144 mmol/L (136-145)
[2023-08-05 03:51] LABS: ALBUMIN 2.8 g/dl (3.4-5.0); ANION GAP 9 mmol/L (4-13); CALCIUM 9.5 mg/dL (8.5-10.1); CO2 28 mmol/L (21-32); GLUCOSE,RANDOM 155 mg/dL (74-106)
[2023-08-05 03:52] LABS: BLOOD UREA NITROGEN 35.4 mg/dL (7-18); MAGNESIUM 2.1 mg/dL (1.8-2.4)
[2023-08-05 03:54] LABS: PHOSPHOROUS 4.6 mg/dL (2.5-4.9); SGOT/AST 13 U/L (15-37); SGPT/ALT 14 U/L (13-61)
[2023-08-05 03:56] LABS: BILIRUBIN,TOTAL 0.5 mg/dL (0.2-1); TOT PROT 6.4 g/dl (6.4-8.2)
[2023-08-05 04:04] LABS: ALK PHOS 96 U/L (45-117); CREATININE 7.8 mg/dL (0.55-1.3)
[2023-08-05] MEDS ORDERED: HEPARIN NA (PORCINE) 5,000 UNITS/ML 1ML VIAL ONE (07:44)
[2023-08-05] MEDS ORDERED: LIDOCAINE HCL 1%, 10 MG/ML (20ML VIAL) ONE (07:44)
[2023-08-05] MEDS ORDERED: LIDOCAINE HCL/PF 2% SDV 5ML VIAL ONE (08:12)
[2023-08-05] MEDS ORDERED: FENTANYL CITRATE/PF 50 MCG/ML VIAL ONE (08:12)
[2023-08-05] MEDS ORDERED: PROPOFOL 20 ML ONE (08:13)
[2023-08-05] MEDS ORDERED: MIDAZOLAM HCL 2 MG/2 ML SINGLE DOSE VIAL ONE (08:13)
[2023-08-05] MEDS: ceFAZolin SODIUM 1 GM VIAL IVPB ONE (08:45)
[2023-08-05] MEDS ORDERED: ceFAZolin SODIUM 1 GM VIAL ONE (08:49)
[2023-08-05] MEDS: LIDOCAINE HCL 1%, 10 MG/ML (20ML VIAL) INF ONE (08:51)
[2023-08-05] MEDS: HEPARIN NA (PORCINE) 5,000 UNITS/ML 1ML VIAL IVPUSH ONE (09:16)
[2023-08-05 15:10] LABS: BASO % 0.3 % (0-2.0); EOS % 0.2 % (0-4.5); HEMATOCRIT 25.7 % (32.4-45.2); LYMPH % 16.1 % (8-40); MCH 25.1 pg (25.7-33.7); MCHC 31.1 g/dl (32.0-36.0); MEAN CELL VOLUME 80.6 fl (80-96); MONO % 8.7 % (3.8-10.2); NEUT % 74.7 % (42.8-82.8); PLATELET COUNT 88 10^3/uL (134-434); RBC 3.19 M/mm3 (3.60-5.2); RDW 19.4 % (11.6-15.6)
[2023-08-05] MEDS: SEVELAMER CARBONATE 800 MG TAB (FP) PO SCH (17:52)
[2023-08-05] MEDS: ATORVASTATIN CA 40 MG TABLET (FP) PO SCH (21:33)
[2023-08-05] MEDS: SENNOSIDES 8.6MG TABLET (FP) PO PRN (21:33)
[2023-08-05] MEDS: BUDESONIDE/FORMETEROL FUMARATE 160/4.5 mcg INHALER IH SCH (21:34)
[2023-08-06 08:05] LABS: CHLORIDE 106 mmol/L (98-107); POTASSIUM 4.6 mmol/L (3.5-5.1); SODIUM 141 mmol/L (136-145)
[2023-08-06 08:08] LABS: ALBUMIN 2.6 g/dl (3.4-5.0); ANION GAP 8 mmol/L (4-13); BLOOD UREA NITROGEN 55.6 mg/dL (7-18); CALCIUM 8.8 mg/dL (8.5-10.1); CO2 27 mmol/L (21-32); GLUCOSE,RANDOM 96 mg/dL (74-106)
[2023-08-06 08:09] LABS: MAGNESIUM 2.2 mg/dL (1.8-2.4)
[2023-08-06 08:11] LABS: PHOSPHOROUS 5.7 mg/dL (2.5-4.9); SGOT/AST 12 U/L (15-37); SGPT/ALT < 6 U/L (13-61)
[2023-08-06 08:12] LABS: BILIRUBIN,TOTAL 0.4 mg/dL (0.2-1); TOT PROT 5.6 g/dl (6.4-8.2)
[2023-08-06 08:14] LABS: ALK PHOS 76 U/L (45-117)
[2023-08-06 08:17] LABS: CREATININE 10.1 mg/dL (0.55-1.3)
[2023-08-06 08:23] LABS: BASO % 0.3 % (0-2.0); EOS % 4.4 % (0-4.5); HEMATOCRIT 21.1 % (32.4-45.2); LYMPH % 20.8 % (8-40); MCH 26.2 pg (25.7-33.7); MCHC 32.5 g/dl (32.0-36.0); MEAN CELL VOLUME 80.5 fl (80-96); MEAN PLT VOLUME 10.1 fl (7.5-11.1); MONO % 10.1 % (3.8-10.2); NEUT % 64.4 % (42.8-82.8); PLATELET COUNT 79 10^3/uL (134-434); RBC 2.63 M/mm3 (3.60-5.2); RDW 18.6 % (11.6-15.6); WHITE BLOOD COUNT 7.5 K/mm3 (4.0-10.0)
[2023-08-06 08:44] LABS: HEMOGLOBIN 6.9 GM/dL (10.7-15.3)
[2023-08-06] MEDS: CARVEDILOL 25 MG TABLET (FP) PO SCH (09:55)
[2023-08-06] MEDS: SACUBITRIL/VALSARTAN 24 MG-26 MG TABLET PO SCH (09:56)
[2023-08-06 15:40] VITALS: BMI 20.7
[2023-08-06] MEDS ORDERED: SODIUM CHLORIDE 250 ML IV PRN (17:21)
[2023-08-06] MEDS: oxyCODONE HCL 5 MG TABLET PO PRN (21:29)
[2023-08-06] MEDS ORDERED: oxyCODONE HCL 5 MG TABLET PO PRN ×2 (23:46)
[2023-08-06] MEDS ORDERED: PROCHLORPERAZINE INJECTION 10 MG/2 ML VIAL IVPB PRN (23:46)
[2023-08-06] MEDS ORDERED: SENNOSIDES 8.6MG TABLET (FP) PO PRN (23:46)
[2023-08-06] MEDS ORDERED: ONDANSETRON 4 MG/2 ML VIAL IVPUSH PRN (23:46)
[2023-08-07] MEDS ORDERED: MUPIROCIN 2% TOPICAL OINTMENT FOR DECOLONIZATION NS SCH (10:00)
[2023-08-07] MEDS: CARVEDILOL 25 MG TABLET (FP) PO SCH (10:01)
[2023-08-07] MEDS: SEVELAMER CARBONATE 800 MG TAB (FP) PO SCH (10:01)
[2023-08-07] MEDS: PANTOPRAZOLE SODIUM 40 MG VIAL IVPUSH SCH (10:01)
[2023-08-07] MEDS: SACUBITRIL/VALSARTAN 24 MG-26 MG TABLET PO SCH (10:01)
[2023-08-07] MEDS: BUDESONIDE/FORMETEROL FUMARATE 160/4.5 mcg INHALER IH SCH (13:08)
[2023-08-07 19:06] VITALS: RESP 18
[2023-08-07] MEDS: ATORVASTATIN CA 40 MG TABLET (FP) PO SCH (21:26)
[2023-08-07] MEDS ORDERED: CHLORHEXIDINE GLUCONATE 4% CLEANSER FOR DECOLONIZATION TP SCH (22:00)
[2023-08-08 13:27] LABS: BASO % 0.6 % (0-2.0); EOS % 16.1 % (0-4.5); HEMATOCRIT 25.5 % (32.4-45.2); HEMOGLOBIN 8.2 GM/dL (10.7-15.3); LYMPH % 15.8 % (8-40); MCH 25.2 pg (25.7-33.7); MCHC 32.1 g/dl (32.0-36.0); MEAN CELL VOLUME 78.8 fl (80-96); MEAN PLT VOLUME 10.2 fl (7.5-11.1); MONO % 9.6 % (3.8-10.2); NEUT % 57.9 % (42.8-82.8); PLATELET COUNT 84 10^3/uL (134-434); RBC 3.24 M/mm3 (3.60-5.2); RDW 17.5 % (11.6-15.6); WHITE BLOOD COUNT 5.9 K/mm3 (4.0-10.0)
[2023-08-08 13:47] LABS: CHLORIDE 106 mmol/L (98-107); SODIUM 141 mmol/L (136-145)
[2023-08-08 13:49] LABS: CALCIUM 8.7 mg/dL (8.5-10.1)
[2023-08-08 13:50] LABS: ALBUMIN 2.6 g/dl (3.4-5.0); ANION GAP 5 mmol/L (4-13); BLOOD UREA NITROGEN 53.6 mg/dL (7-18); CO2 31 mmol/L (21-32); GLUCOSE,RANDOM 125 mg/dL (74-106); MAGNESIUM 2.3 mg/dL (1.8-2.4)
[2023-08-08 13:53] LABS: SGOT/AST 16 U/L (15-37); SGPT/ALT < 6 U/L (13-61)
[2023-08-08 13:54] LABS: BILIRUBIN,TOTAL 0.6 mg/dL (0.2-1); TOT PROT 5.8 g/dl (6.4-8.2)
[2023-08-08 13:55] LABS: ALK PHOS 85 U/L (45-117)
[2023-08-08 14:13] LABS: CREATININE 9.5 mg/dL (0.55-1.3)
[2023-08-08] MEDS: EPOETIN ALFA-EPBX 4,000 UNIT/ML VIAL IVPUSH ONE (15:40)
[2023-08-09] MEDS ORDERED: SODIUM CHLORIDE 250 ML IV PRN (07:49)
[2023-08-09 08:58] LABS: HEMATOCRIT 28.1 % (32.4-45.2); HEMOGLOBIN 8.9 GM/dL (10.7-15.3); MCH 25.5 pg (25.7-33.7); MCHC 31.7 g/dl (32.0-36.0); MEAN CELL VOLUME 80.3 fl (80-96); MEAN PLT VOLUME 9.9 fl (7.5-11.1); PLATELET COUNT 83 10^3/uL (134-434); RDW 16.9 % (11.6-15.6); WHITE BLOOD COUNT 6.1 K/mm3 (4.0-10.0)
[2023-08-09 09:08] LABS: ANION GAP 7 mmol/L (4-13); CALCIUM 9.2 mg/dL (8.5-10.1); CHLORIDE 103 mmol/L (98-107); CO2 32 mmol/L (21-32); POTASSIUM 4.2 mmol/L (3.5-5.1); SODIUM 141 mmol/L (136-145)
[2023-08-09 09:09] LABS: BLOOD UREA NITROGEN 34.9 mg/dL (7-18); GLUCOSE,RANDOM 97 mg/dL (74-106)
[2023-08-09 09:13] LABS: CREATININE 7.8 mg/dL (0.55-1.3)
[2023-08-09] MEDS: EPOETIN ALFA-EPBX 10,000 UNIT/ML VIAL IVPUSH ONE (10:31)
[2023-08-09 18:08] VITALS: BP 104/61; PULSE 68; TEMP 97.8
== END 2023-08-09 18:30 | disposition home or self-care (01) | DRG 668 ==
LOC: JASUSAT 04:29 → JASU-SURG 04:29 → J5S 11:28 → JICU 16:21 → JASUSAT 16:45 → J5S 08-06 23:30
PROVIDERS: ADMIT Internal Medicine; ATTEND Internal Medicine
PROC: 0T5B8ZZ Destruction of Bladder, Via Natural or Artificial Opening Endoscopic (ICD-10-PCS; 2023-08-04)
PROC: 3E0K8GC Introduction of Other Therapeutic Substance into Genitourinary Tract, Via Natural or Artificial Opening Endoscopic (ICD-10-PCS; 2023-08-04)
PROC: 5A1D70Z Performance of Urinary Filtration, Intermittent, Less than 6 Hours Per Day (ICD-10-PCS; 2023-08-04)
PROC: 0TBB8ZZ Excision of Bladder, Via Natural or Artificial Opening Endoscopic (ICD-10-PCS; principal; 2023-08-04 07:30)
PROC: 06HN33Z Insertion of Infusion Device into Left Femoral Vein, Percutaneous Approach (ICD-10-PCS; 2023-08-05)
PROC: 30233N1 Transfusion of Nonautologous Red Blood Cells into Peripheral Vein, Percutaneous Approach (ICD-10-PCS; 2023-08-06)
PROC: 5A1D70Z Performance of Urinary Filtration, Intermittent, Less than 6 Hours Per Day (ICD-10-PCS; 2023-08-08)
PROC: 5A1D70Z Performance of Urinary Filtration, Intermittent, Less than 6 Hours Per Day (ICD-10-PCS; 2023-08-09)
DX: C67.9 Malignant neoplasm of bladder, unspecified (principal); N18.6 End stage renal disease; I13.2 Hypertensive heart and chronic kidney disease with heart failure and with stage 5 chronic kidney disease, or end stage renal disease; I50.22 Chronic systolic (congestive) heart failure; D62 Acute posthemorrhagic anemia; T82.41XA Breakdown (mechanical) of vascular dialysis catheter, initial encounter; K21.9 Gastro-esophageal reflux disease without esophagitis; I25.10 Atherosclerotic heart disease of native coronary artery without angina pectoris; J44.9 Chronic obstructive pulmonary disease, unspecified; R31.0 Gross hematuria; E11.22 Type 2 diabetes mellitus with diabetic chronic kidney disease; I48.0 Paroxysmal atrial fibrillation; F03.90 Unspecified dementia, unspecified severity, without behavioral disturbance, psychotic disturbance, mood disturbance, and anxiety; Z99.2 Dependence on renal dialysis; E78.5 Hyperlipidemia, unspecified; Y83.8 Other surgical procedures as the cause of abnormal reaction of the patient, or of later complication, without mention of misadventure at the time of the procedure; Z86.19 Personal history of other infectious and parasitic diseases
CPT/HCPCS: 36415; 36430; 71045-TC-FY; 76000-TC-FY; 80048; 80053; 83036; 83735; 84100; 84132; 85025; 85027; 85610; 85730; 86705; 86803; 86850; 86900; 86901; 86922; 87340; 87522; 88307-TC; 94760; 97116-GP; 97162-GP; C1750; J0131; J1644; P9058; Q5106

== ENCOUNTER 2023-11-28 04:24 | Inpatient (IN) | payer OTHER ==
[2023-11-24 16:08] VITALS: BMI 20.7
[2023-11-28] MEDS ORDERED: mitoMYcin 40 MG/50 ML DISP.SYRIN (FOR OR USE) IC ONE (13:30)
[2023-11-28] MEDS ORDERED: MIDAZOLAM HCL 2 MG/2 ML SINGLE DOSE VIAL ONE (13:41)
[2023-11-28] MEDS ORDERED: PROPOFOL 20 ML ONE (13:41)
[2023-11-28] MEDS ORDERED: ceFAZolin SODIUM 1 GM VIAL ONE (14:10)
[2023-11-28] MEDS ORDERED: ONDANSETRON 4 MG/2 ML VIAL ONE (14:10)
[2023-11-28] MEDS ORDERED: DEXAMETHASONE SOD PHOSPHATE 4 MG/1 ML VIAL ONE (14:10)
[2023-11-28] MEDS: ceFAZolin SODIUM 1 GM VIAL IVPB ONE (14:11)
[2023-11-28] MEDS ORDERED: LABETALOL HCL 5 MG/1 ML (100MG/20 ML VIAL) ONE (14:20)
[2023-11-28] MEDS ORDERED: ROCURONIUM BROMIDE 50 MG/5 ML SYRINGE ONE (14:32)
[2023-11-28] MEDS ORDERED: SUGAMMADEX SODIUM 200 MG/2 ML VIAL ONE (15:53)
[2023-11-28] MEDS ORDERED: SODIUM CHLORIDE 250 ML IV PRN (16:51)
[2023-11-28] MEDS: SOLIFENACIN SUCCINATE 5 MG TAB PO SCH (17:20)
[2023-11-28] MEDS: ACETAMINOPHEN 325 MG TABLET (FP) PO PRN (17:50)
[2023-11-28] MEDS: oxyCODONE HCL 5 MG TABLET PO PRN (17:51)
[2023-11-28] MEDS ORDERED: CEFAZOLIN 1 GM in DEXTROSE 5%-WATER - 50 ML IVPB SCH (18:00)
[2023-11-28] MEDS: ATORVASTATIN CA 40 MG TABLET (FP) PO SCH (21:53)
[2023-11-28] MEDS: CARVEDILOL 25 MG TABLET (FP) PO SCH (21:53)
[2023-11-28] MEDS: CEFAZOLIN 1 GM in DEXTROSE 5%-WATER - 50 ML IVPB SCH (21:57)
[2023-11-28] MEDS: SACUBITRIL/VALSARTAN 24 MG-26 MG TABLET PO SCH (21:58)
[2023-11-29] MEDS ORDERED: ceFAZolin SODIUM 1 GM VIAL ONE (00:34)
[2023-11-29] MEDS: FAMOTIDINE 10 MG TABLET PO SCH (10:11)
[2023-11-29 11:39] LABS: HEMATOCRIT 35.1 % (32.4-45.2); HEMOGLOBIN 11.2 GM/dL (10.7-15.3); MCH 24.8 pg (25.7-33.7); MCHC 31.9 g/dl (32.0-36.0); MEAN CELL VOLUME 77.9 fl (80-96); MEAN PLT VOLUME 10.8 fl (7.5-11.1); PLATELET COUNT 98 10^3/uL (134-434); RBC 4.51 M/mm3 (3.60-5.2); RDW 18.7 % (11.6-15.6); WHITE BLOOD COUNT 8.7 K/mm3 (4.0-10.0)
[2023-11-29 11:57] LABS: CHLORIDE 110 mmol/L (98-107); POTASSIUM 5.8 mmol/L (3.5-5.1); SODIUM 140 mmol/L (136-145)
[2023-11-29 12:00] LABS: ANION GAP 8 mmol/L (4-13); CALCIUM 9.7 mg/dL (8.5-10.1); CO2 22 mmol/L (21-32)
[2023-11-29 12:01] LABS: GLUCOSE,RANDOM 143 mg/dL (74-106); MAGNESIUM 2.3 mg/dL (1.8-2.4)
[2023-11-29 12:03] LABS: SGOT/AST 29 U/L (15-37); SGPT/ALT 23 U/L (13-61)
[2023-11-29 12:04] LABS: PHOSPHOROUS 5.8 mg/dL (2.5-4.9)
[2023-11-29 12:05] LABS: BILIRUBIN,TOTAL 0.5 mg/dL (0.2-1)
[2023-11-29 12:06] LABS: ALK PHOS 124 U/L (45-117)
[2023-11-29 12:22] LABS: CREATININE 7.9 mg/dL (0.55-1.3)
[2023-11-29] MEDS: EPOETIN ALFA-EPBX 4,000 UNIT/ML VIAL SQ ONE (12:32)
[2023-12-01] MEDS: HEPARIN NA (PORCINE) 5,000 UNITS/ML 1ML VIAL IVPUSH ONE (09:45)
[2023-12-01 10:38] LABS: HEMATOCRIT 31.8 % (32.4-45.2); HEMOGLOBIN 9.7 GM/dL (10.7-15.3); MCH 24.3 pg (25.7-33.7); MCHC 30.7 g/dl (32.0-36.0); MEAN CELL VOLUME 79.2 fl (80-96); PLATELET COUNT 84 10^3/uL (134-434); RBC 4.01 M/mm3 (3.60-5.2); RDW 19.4 % (11.6-15.6)
[2023-12-01 10:58] LABS: CHLORIDE 109 mmol/L (98-107); SODIUM 142 mmol/L (136-145)
[2023-12-01 11:03] LABS: BLOOD UREA NITROGEN 44.1 mg/dL (7-18)
[2023-12-01 11:07] LABS: GLUCOSE,RANDOM 117 mg/dL (74-106)
[2023-12-01 11:10] LABS: POTASSIUM 6.2 mmol/L (3.5-5.1)
[2023-12-01 11:15] LABS: ANION GAP 5 mmol/L (4-13); CALCIUM 9.3 mg/dL (8.5-10.1); CO2 28 mmol/L (21-32)
[2023-12-01] MEDS ORDERED: SODIUM CHLORIDE 250 ML IV PRN (12:00)
[2023-12-01] MEDS: DEXTROSE 5%-0.45% SALINE 1,000 ML IV SCH (20:57)
[2023-12-01] MEDS: ACETAMINOPHEN 1000 MG/100 ML BAG IVPB ONE (20:58)
[2023-12-02 12:27] LABS: BASO % 0.3 % (0-2.0); EOS % 16.8 % (0-4.5); HEMATOCRIT 33.6 % (32.4-45.2); HEMOGLOBIN 10.3 GM/dL (10.7-15.3); LYMPH % 14.8 % (8-40); MCH 24.4 pg (25.7-33.7); MCHC 30.8 g/dl (32.0-36.0); MEAN CELL VOLUME 79.1 fl (80-96); MEAN PLT VOLUME 10.7 fl (7.5-11.1); MONO % 9.4 % (3.8-10.2); NEUT % 58.7 % (42.8-82.8); PLATELET COUNT 83 10^3/uL (134-434); RBC 4.25 M/mm3 (3.60-5.2); RDW 18.7 % (11.6-15.6)
[2023-12-02 12:41] LABS: CHLORIDE 107 mmol/L (98-107); POTASSIUM 4.1 mmol/L (3.5-5.1); SODIUM 143 mmol/L (136-145)
[2023-12-02 12:43] LABS: CALCIUM 9.4 mg/dL (8.5-10.1)
[2023-12-02 12:44] LABS: ANION GAP 6 mmol/L (4-13); BLOOD UREA NITROGEN 27.3 mg/dL (7-18); CO2 29 mmol/L (21-32); GLUCOSE,RANDOM 108 mg/dL (74-106)
[2023-12-02 12:47] LABS: CREATININE 6.1 mg/dL (0.55-1.3); SGOT/AST 32 U/L (15-37); SGPT/ALT < 6 U/L (13-61)
[2023-12-02 12:48] LABS: BILIRUBIN,TOTAL 0.6 mg/dL (0.2-1); TOT PROT 7.1 g/dl (6.4-8.2)
[2023-12-02 12:50] LABS: ALK PHOS 119 U/L (45-117)
[2023-12-03 11:04] LABS: BASO % 0.3 % (0-2.0); EOS % 17.9 % (0-4.5); HEMATOCRIT 33.2 % (32.4-45.2); HEMOGLOBIN 10.2 GM/dL (10.7-15.3); LYMPH % 13.1 % (8-40); MCH 24.7 pg (25.7-33.7); MCHC 30.9 g/dl (32.0-36.0); MEAN CELL VOLUME 79.8 fl (80-96); MONO % 6.1 % (3.8-10.2); NEUT % 62.6 % (42.8-82.8); RBC 4.16 M/mm3 (3.60-5.2); RDW 19.1 % (11.6-15.6); WHITE BLOOD COUNT 9.4 K/mm3 (4.0-10.0)
[2023-12-03 11:23] LABS: CHLORIDE 106 mmol/L (98-107); SODIUM 141 mmol/L (136-145)
[2023-12-03 11:28] LABS: CALCIUM 9.8 mg/dL (8.5-10.1)
[2023-12-03 11:29] LABS: ALBUMIN 2.9 g/dl (3.4-5.0); ANION GAP 5 mmol/L (4-13); BLOOD UREA NITROGEN 37.8 mg/dL (7-18); CO2 29 mmol/L (21-32); GLUCOSE,RANDOM 120 mg/dL (74-106)
[2023-12-03 11:31] LABS: BILIRUBIN,TOTAL 0.8 mg/dL (0.2-1); SGPT/ALT < 6 U/L (13-61); TOT PROT 6.6 g/dl (6.4-8.2)
[2023-12-03 11:32] LABS: CREATININE 7.4 mg/dL (0.55-1.3); SGOT/AST 27 U/L (15-37)
[2023-12-03 11:33] LABS: ALK PHOS 111 U/L (45-117)
[2023-12-03] MEDS ORDERED: SODIUM CHLORIDE 250 ML IV PRN (11:59)
[2023-12-03 12:09] LABS: MEAN PLT VOLUME 10.8 fl (7.5-11.1); PLATELET COUNT 77 10^3/uL (134-434)
[2023-12-04 09:54] VITALS: RESP 18
[2023-12-04 12:51] VITALS: BP 101/72; PULSE 67; TEMP 97.6
== END 2023-12-04 18:05 | disposition home health service (06) | DRG 653 ==
LOC: JASU-SURG 04:24 → JASUSAT 04:24 → J6S 17:39 → JASUSAT 17:40 → J6S 17:40
PROVIDERS: ADMIT Internal Medicine; ATTEND Internal Medicine
PROC: 0TQB8ZZ Repair Bladder, Via Natural or Artificial Opening Endoscopic (ICD-10-PCS; 2023-11-28)
PROC: 5A1D70Z Performance of Urinary Filtration, Intermittent, Less than 6 Hours Per Day (ICD-10-PCS; 2023-11-28)
PROC: 0TBB8ZZ Excision of Bladder, Via Natural or Artificial Opening Endoscopic (ICD-10-PCS; principal; 2023-11-28 13:30)
DX: C67.9 Malignant neoplasm of bladder, unspecified (principal); N18.6 End stage renal disease; I13.2 Hypertensive heart and chronic kidney disease with heart failure and with stage 5 chronic kidney disease, or end stage renal disease; I50.22 Chronic systolic (congestive) heart failure; D64.9 Anemia, unspecified; N32.89 Other specified disorders of bladder; F03.90 Unspecified dementia, unspecified severity, without behavioral disturbance, psychotic disturbance, mood disturbance, and anxiety; Z99.2 Dependence on renal dialysis; E78.5 Hyperlipidemia, unspecified; I48.0 Paroxysmal atrial fibrillation; I25.10 Atherosclerotic heart disease of native coronary artery without angina pectoris; R31.0 Gross hematuria
CPT/HCPCS: 36415; 76000-TC-FY; 80048; 80053; 82962; 83735; 84100; 84132; 85025; 85027; 86803; 87340; 87522; 94760; J0131; J1644; Q5106

== ENCOUNTER 2024-05-27 11:44 | Observation (INO) | payer OTHER ==
[2024-05-27] MEDS: LIDOCAINE 2.5%/PRILOCAINE 2.5% 30 GRAM TUBE TP ONE (13:45)
[2024-05-27] MEDS ORDERED: LIDOCAINE 2.5%/PRILOCAINE 2.5% (5 Gram/TUBE) TP ONE (13:48)
[2024-05-27 14:21] LABS: ABSOLUTE IMMATURE GRANULOCYTES 0.01 x10^3/uL (0.0-0.031); BASOPHILS # 0.05 x10^3/uL (0.01-0.08); EOSINOPHIL % 12.2 % (0.7-5.8); EOSINOPHILS # 0.73 x10^3/uL (0.04-0.36); HEMOGLOBIN 11.7 g/dL (11.2-15.7); MEAN CELL VOLUME 84.2 fl (79.4-94.8); MONOCYTE # 0.59 x10^3/uL (0.24-0.86); MONOCYTE % 9.9 % (4.7-12.5); PLATELET COUNT 97 x10^3/uL (182-369); RDW 17.2 % (12.4-16.4)
[2024-05-27 14:44] LABS: CHLORIDE 106 mmol/L (98-107); POTASSIUM 4.7 mmol/L (3.5-5.1); SODIUM 143 mmol/L (136-145)
[2024-05-27 14:47] LABS: ALBUMIN 3.2 g/dl (3.4-5.0); ANION GAP 11 mmol/L (4-13); BLOOD UREA NITROGEN 43.6 mg/dL (7-18); CALCIUM 9.8 mg/dL (8.5-10.1); CO2 26 mmol/L (21-32)
[2024-05-27 14:48] LABS: GLUCOSE,RANDOM 81 mg/dL (74-106)
[2024-05-27 14:50] LABS: SGOT/AST 34 U/L (15-37); SGPT/ALT 37 U/L (13-61)
[2024-05-27 14:52] LABS: BILIRUBIN,TOTAL 0.6 mg/dL (0.2-1); TOT PROT 7.9 g/dl (6.4-8.2)
[2024-05-27 14:53] LABS: ALK PHOS 165 U/L (45-117)
[2024-05-27 15:18] LABS: CREATININE 11.8 mg/dL (0.55-1.3)
[2024-05-27 18:07] LABS: INR 2.25 (0.83-1.09)
[2024-05-27 19:04] LABS: ACTIVATED PTT > 200.0 SECONDS (25.2-36.5)
[2024-05-27] MEDS ORDERED: ACETAMINOPHEN 325 MG TABLET (FP) PO PRN (22:22)
[2024-05-27] MEDS ORDERED: DOCUSATE SODIUM 100 MG CAPSULE (FP) PO PRN (22:22)
[2024-05-27] MEDS: CARVEDILOL 25 MG TABLET (FP) PO SCH (22:36)
[2024-05-27 23:00] VITALS: BMI 20.3
[2024-05-28] MEDS ORDERED: MIDAZOLAM HCL 2 MG/2 ML SINGLE DOSE VIAL ONE ×2 (06:48→07:40)
[2024-05-28] MEDS ORDERED: LIDOCAINE HCL/PF 2% SDV 5ML VIAL ONE (06:50)
[2024-05-28] MEDS ORDERED: SODIUM CHLORIDE 250 ML IV PRN ×2 (07:00→08:42)
[2024-05-28] MEDS: LIDOCAINE HCL 1%, 10 MG/ML (20ML VIAL) NR ONE ×2 (07:28→07:55)
[2024-05-28] MEDS: HEPARIN NA (PORCINE) 5,000 UNITS/ML 1ML VIAL SQ ONE ×2 (07:30→08:20)
[2024-05-28] MEDS ORDERED: ceFAZolin SODIUM 1 GM VIAL ONE (07:54)
[2024-05-28] MEDS: ceFAZolin SODIUM 1 GM VIAL IVPB ONE (07:55)
[2024-05-28] MEDS: SEVELAMER CARBONATE 800 MG TAB (FP) PO SCH ×2 (08:15→16:17)
[2024-05-28] MEDS ORDERED: DOCUSATE SODIUM 100 MG CAPSULE (FP) PO PRN (08:42)
[2024-05-28] MEDS ORDERED: ACETAMINOPHEN 325 MG TABLET (FP) PO PRN (08:42)
[2024-05-28] MEDS ORDERED: SOLIFENACIN SUCCINATE 5 MG TAB PO SCH ×2 (10:00)
[2024-05-28] MEDS ORDERED: VITAMIN B COMP W-C 1 EA TABLET (NEPHRO-VITE) PO SCH (10:00)
[2024-05-28] MEDS ORDERED: SACUBITRIL/VALSARTAN 24 MG-26 MG TABLET PO SCH (10:00)
[2024-05-28] MEDS ORDERED: FAMOTIDINE 10 MG TABLET PO SCH (10:00)
[2024-05-28] MEDS ORDERED: AMMONIUM LACTATE 12% LOTION 225 GM BOTTLE TP SCH (10:00)
[2024-05-28 10:09] LABS: HEMATOCRIT 32.7 % (34.1-44.9); MCHC 30.6 g/dl (32.2-35.5); MEAN CELL VOLUME 81.8 fl (79.4-94.8); MEAN PLT VOLUME 12.9 fl (9.4-12.3); PLATELET COUNT 108 x10^3/uL (182-369); RDW 16.3 % (12.4-16.4)
[2024-05-28 10:38] LABS: CHLORIDE 110 mmol/L (98-107); POTASSIUM 4.3 mmol/L (3.5-5.1); SODIUM 144 mmol/L (136-145)
[2024-05-28 10:40] LABS: ANION GAP 9 mmol/L (4-13); BLOOD UREA NITROGEN 56.3 mg/dL (7-18); CALCIUM 8.8 mg/dL (8.5-10.1); CO2 26 mmol/L (21-32); MAGNESIUM 2.3 mg/dL (1.8-2.4)
[2024-05-28 10:41] LABS: GLUCOSE,RANDOM 77 mg/dL (74-106)
[2024-05-28 10:43] LABS: PHOSPHOROUS 6.4 mg/dL (2.5-4.9)
[2024-05-28 10:53] LABS: CREATININE 12.9 mg/dL (0.55-1.3)
[2024-05-28] MEDS: FAMOTIDINE 10 MG TABLET PO SCH (11:00)
[2024-05-28] MEDS: SACUBITRIL/VALSARTAN 24 MG-26 MG TABLET PO SCH (11:01)
[2024-05-28] MEDS: CARVEDILOL 25 MG TABLET (FP) PO SCH (11:01)
[2024-05-28] MEDS: AMMONIUM LACTATE 12% LOTION 225 GM BOTTLE TP SCH (11:01)
[2024-05-28] MEDS: APIXABAN 5 MG TABLET PO SCH (11:06)
[2024-05-28] MEDS: VITAMIN B COMP W-C 1 EA TABLET (NEPHRO-VITE) PO SCH (11:11)
[2024-05-28] MEDS: SOLIFENACIN SUCCINATE 5 MG TAB PO SCH (11:12)
[2024-05-28 16:28] LABS: HEPATITIS B SURF AG NON-MATERN NON-REACTIVE (NONREACTIVE)
[2024-05-28 16:57] LABS: HIV INTERPRETATION NEGATIVE (NEGATIVE)
[2024-05-28 17:00] LABS: HCV DIAGNOSTIC IN-HOUSE W/RFLX REACTIVE (NONREACTIVE)
[2024-05-28] MEDS: ATORVASTATIN CA 40 MG TABLET (FP) PO SCH (21:27)
[2024-05-28] MEDS ORDERED: ATORVASTATIN CA 40 MG TABLET (FP) PO SCH (22:00)
[2024-05-30] MEDS ORDERED: DEXAMETHASONE SOD PHOSPHATE 4 MG/1 ML VIAL ONE (08:43)
[2024-05-30] MEDS ORDERED: ONDANSETRON 4 MG/2 ML VIAL ONE (08:43)
[2024-05-30] MEDS ORDERED: LIDOCAINE HCL/PF 2% SDV 5ML VIAL ONE (08:43)
[2024-05-30] MEDS ORDERED: MIDAZOLAM HCL 2 MG/2 ML SINGLE DOSE VIAL ONE (08:44)
[2024-05-30] MEDS ORDERED: PROPOFOL 20 ML ONE (08:44)
[2024-05-30] MEDS ORDERED: SODIUM CHLORIDE 250 ML IV PRN ×2 (08:59→10:01)
[2024-05-30] MEDS ORDERED: CLINDAMYCIN PHOSPHATE 600 MG/4 ML VIAL ONE (09:21)
[2024-05-30] MEDS: CLINDAMYCIN PHOSPHATE 900 MG/6 ML VIAL IVPB ONE (09:22)
[2024-05-30] MEDS ORDERED: ACETAMINOPHEN 325 MG TABLET (FP) PO PRN (10:01)
[2024-05-30] MEDS ORDERED: DOCUSATE SODIUM 100 MG CAPSULE (FP) PO PRN (10:01)
[2024-05-30] MEDS: POTASSIUM CHLORIDE 10 MEQ in DEXTROSE 5%-NORMAL SALINE 1,000 ML IVPB SCH ×2 (11:14→11:15)
[2024-05-30] MEDS: SEVELAMER CARBONATE 800 MG TAB (FP) PO SCH (12:21)
[2024-05-30 14:52] VITALS: TEMP 97.2
[2024-05-30 17:16] VITALS: BP 130/76; PULSE 65; RESP 18
[2024-05-30] MEDS ORDERED: ATORVASTATIN CA 40 MG TABLET (FP) PO SCH (22:00)
[2024-05-30] MEDS ORDERED: CARVEDILOL 25 MG TABLET (FP) PO SCH (22:00)
[2024-05-30] MEDS ORDERED: SACUBITRIL/VALSARTAN 24 MG-26 MG TABLET PO SCH (22:00)
[2024-05-30] MEDS ORDERED: AMMONIUM LACTATE 12% LOTION 225 GM BOTTLE TP SCH (22:00)
[2024-05-30] MEDS ORDERED: APIXABAN 5 MG TABLET PO SCH (22:00)
[2024-05-31] MEDS ORDERED: FAMOTIDINE 10 MG TABLET PO SCH (10:00)
[2024-05-31] MEDS ORDERED: VITAMIN B COMP W-C 1 EA TABLET (NEPHRO-VITE) PO SCH (10:00)
[2024-05-31] MEDS ORDERED: SOLIFENACIN SUCCINATE 5 MG TAB PO SCH (10:00)
== END 2024-05-30 17:32 | disposition home or self-care (01) ==
LOC: JER 11:44 → JERBED 12:36 → INTOOBSV 12:36 → UNDOADMOB 12:36 → JERBED 22:20 → J5S 22:20 → JERBED 05-28 12:00 → J5S 05-28 12:00
PROVIDERS: ADMIT Internal Medicine; ATTEND Internal Medicine
PROC: 0WHG43Z Insertion of Infusion Device into Peritoneal Cavity, Percutaneous Endoscopic Approach (ICD-10-PCS; 2024-05-28)
PROC: 3E03329 Introduction of Other Anti-infective into Peripheral Vein, Percutaneous Approach (ICD-10-PCS; 2024-05-28)
PROC: 3E023GC Introduction of Other Therapeutic Substance into Muscle, Percutaneous Approach (ICD-10-PCS; 2024-05-28)
PROC: 0WPG43Z Removal of Infusion Device from Peritoneal Cavity, Percutaneous Endoscopic Approach (ICD-10-PCS; principal; 2024-05-28 07:30)
PROC: 0TBB8ZZ Excision of Bladder, Via Natural or Artificial Opening Endoscopic (ICD-10-PCS; 2024-05-30)
DX: C67.9 Malignant neoplasm of bladder, unspecified (principal); I12.0 Hypertensive chronic kidney disease with stage 5 chronic kidney disease or end stage renal disease; N18.6 End stage renal disease; I11.0 Hypertensive heart disease with heart failure; I48.91 Unspecified atrial fibrillation; Z99.2 Dependence on renal dialysis; F17.210 Nicotine dependence, cigarettes, uncomplicated; R31.9 Hematuria, unspecified; E11.9 Type 2 diabetes mellitus without complications; Z79.01 Long term (current) use of anticoagulants; Z86.19 Personal history of other infectious and parasitic diseases; J45.909 Unspecified asthma, uncomplicated; Z88.0 Allergy status to penicillin; Z91.013 Allergy to seafood; Z88.8 Allergy status to other drugs, medicaments and biological substances; Z86.73 Personal history of transient ischemic attack (TIA), and cerebral infarction without residual deficits
CPT/HCPCS: 36415; 76000-TC-FY; 80048; 80053; 83735; 84100; 85025; 85027; 85610; 85730; 86704; 86803; 86850; 86900; 86901; 87340; 87389; 87517; 87522; 88307-TC; 93005; 93010; 94760; 96372; 96374; 96375; 99285-25; C1750; C1769; C1897; G0378; J1644